=== PATIENT | male | born 1955 | race Caucasian/White ===

== ENCOUNTER 2018-03-29 15:31 | Emergency (ER) | payer OTHER ==
--- OUTSIDE RECORDS SUMMARY | 2018-03-29 15:33 | XMS REPORT ---
:1955 Author Organization eClinicalWorks Care Team Providers Name Role Phone Brown, Na Provider Role Unavailable Allergies, Adverse Reactions, Alerts Substance Reaction Event Type Claritin Info Not Available Drug Allergy Problems Problem Type Condition Code Onset Dates Condition Status Problem Migraine with status migrainosus, G43.901 Active not intractable, unspecified migraine type Problem Iron deficiency anemia, unspecified D50.9 Active iron deficiency anemia type Problem Controlled type 2 diabetes mellitus E11.9 Active without complication, without long-term current use of insulin Problem Diabetes E11.9 Active Problem Benign essential HTN I10 Active Problem Hyperlipidemia E78.5 Active Problem Pain R52 Active Problem Lumbosacral spondylosis without M47.817 Active myelopathy Problem Erectile dysfunction N52.9 Active Problem Chronic hepatitis C B18.2 Active Assessment Erectile dysfunction N52.9 Active Assessment Hyperlipidemia E78.5 Active Assessment Iron deficiency anemia, unspecified D50.9 Active iron deficiency anemia type Assessment Benign essential HTN I10 Active Assessment Lumbosacral spondylosis without M47.817 Active myelopathy Assessment Controlled type 2 diabetes mellitus E11.9 Active without complication, without long-term current use of insulin Medications Medication Code Code Instructions Start End Status Dosage System Date Date Zyrtec Allergy ND 31892825267 10 MG Orally Active 1 tablet Once a day Tradjenta ND 30997476379 5 MG Orally Active 1 tablet Once a day Tylenol # 3 NDC 0 30-500-15 MG Inactive 2 tablets Orally every 6 as needed hrs blood glucose NDC 0 n/s once a day December Active one test strip 2017 Cialis ND 05040572240 20 MG Orally Sep 28, Active 1 tablet once a day prn 2019 erectile dysfunction Gabapentin ND 92810254656 600MG Active TAKE TWO TABLETS BY MOUTH THREE TIMES DAILY Lancets Super NDC 0 n/s finger December Active one Thin stick once 2017 Hyzaar ND 80846342311 50-12.5 MG Active 1 tablet Orally Once a day Ferrous ND 04906981652 325 (65 Fe) MG Active 1 tablet Sulfate Orally Once a day [place] [facility] 98448054494 7.5-325 MG Active 1 tablet as Orally every 6 needed hrs Glucometer ND 0 n/s use as December Active not defined directed to 2017 08, check blood 2018 glucose twice a day Alcohol Prep ND 0 twice a day December Active as directed Pads 2017 Flonase [facility] 38193118280 50 MCG/ACT Active 1 spray in Nasally Once a each day nostril Singulair [facility] 71237853528 10 MG Orally Active 1 tablet in Once a day the evening Viagra [facility] 15190376197 100 MG Orally Inactive 1 tablet as Once a day needed Results No Known Results Summary Purpose eClinicalWorks Submission
--- OUTSIDE RECORDS SUMMARY | 2018-03-29 15:33 | XMS REPORT ---
:1955 Author Organization e[employer]Works Care Team Providers Name Role Phone Brown, Na Provider Role Unavailable Allergies No Known Allergies Problems Problem Type Condition Code Onset Dates [...] Active Problem Chronic hepatitis C B18.2 Active Medications No Known Medications Results No Known Results Summary Purpose eClinicalWorks Submission
[2018-03-29] MEDS ORDERED: HYDROCODONE/APAP 10/325 TAB ONE (16:21)
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
--- NOTE | 2018-03-29 16:34 | ER ---
Nurse's Notes [facility] Name: Christopher Farrar Age: 62 yrs Sex: Male : 1955 Arrival Date: 03/29/2018 Time: 15:34 Bed 24 Private MD: None, None Diagnosis: Low back pain;Other chronic pain Presentation: 03/29 15:39 Presenting complaint: Patient states: Back pain now for several years, has a PCP that sg has been managing his care but today the pain is not being controlled with usual medications, denies trauma, no urinary symptoms reported, pt c/o lower back pain a 10/10, difficulty standing and walking without severe pain, I took all of my hydrocodone that prescribes for pain management, has an MRI scheduled with PCP in [place], I need some help with the back pain, because im out of my pain medication. Transition of care: patient was not received from another setting of care. Onset of symptoms was March 29, 2018. Risk Assessment: Do you want to hurt yourself or someone else? Patient reports no desire to harm self or others. Initial Sepsis Screen: Does the patient meet any 2 criteria? No. Patient's initial sepsis screen is negative. Does the patient have a suspected source of infection? No. Patient's initial sepsis screen is negative. Care prior to arrival: None. 15:39 Method Of Arrival: Wheelchair 15:39 Acuity: GENE 4 sg Historical: - Allergies: 15:39 No Known Allergies; sg - PSHx: 15:39 Tonsillectomy; sg - Immunization history:: Adult Immunizations not up to date. - Social history:: Smoking status: Patient/guardian denies using tobacco. - Ebola Screening: : Patient negative for fever greater than or equal to 101.5 degrees Fahrenheit, and additional compatible Ebola Virus Disease symptoms Patient denies exposure to infectious person Patient denies travel to an Ebola-affected area in the 21 days before illness onset No symptoms or risks identified at this time. Screenin:52 Abuse screen: Denies threats or abuse. Nutritional screening: No deficits noted. mb3 Tuberculosis screening: No symptoms or risk factors identified. Fall Risk None identified. Assessment: 16:51 General: Appears in no apparent distress. comfortable, Behavior is calm, cooperative, mb3 appropriate for age. Pain: Complains of pain in back. Neuro: Level of Consciousness is awake, alert, obeys commands. Cardiovascular: No deficits noted. Respiratory: No deficits noted. GI: No deficits noted. : No deficits noted. Vital Signs: 15:42 Pulse 108; Resp 17; Temp 98.6; Pulse Ox 100% on R/A; Pain 10/10; sg 15:43 BP 164 / 104; sg 15:43 Weight 77.11 kg (R); Height 5 ft. 9 in. (175.26 cm); sg 16:50 BP 150 / 110; Pulse 98; Resp 16; Pulse Ox 99% on R/A; mb3 15:43 Body Mass Index 25.10 (77.11 kg, 175.26 cm) sg ED Course: 15:34 Patient arrived in ED. sb2 15:34 None, None is Private Physician. sb2 15:39 Arm band placed on. sg 15:40 Triage completed. sg 15:54 Darny Delgado NP is PHCP. pm1 15:54 Les Lin MD is Attending Physician. pm1 15:59 Hai Barbosa, IGOR is Primary Nurse. mb3 16:34 Darrell Avitia DO is Referral Physician. pm1 16:51 No provider procedures requiring assistance completed. Patient did not have IV access mb3 during this emergency room visit. 16:52 Patient has correct armband on for positive identification. mb3 Administered Medications: 16:24 Drug: HYDROcodone-acetaminophen 10 mg-325 mg 1 tabs Route: PO; mb3 16:53 Follow up: Response: No adverse reaction mb3 Outcome: 16:33 Discharge ordered by . pm1 16:52 Discharged to home ambulatory. mb3 16:52 Condition: stable 16:52 Discharge instructions given to patient, Instructed on discharge instructions, follow up and referral plans. Demonstrated understanding of instructions, follow-up care. 16:53 Patient left the ED. mb3 Signatures: Pal Spivey RN RN Daryn Delgado NP WEBSITE DEVELOPER pm1 Rowan Amin sb2 Hai Barbosa, IGOR RN mb3 Corrections: (The following items were deleted from the chart) 15:43 15:39 Presenting complaint: Patient states: Back pain now for several years, has a PCP sg that has been managing his care but today the pain is not being controlled with usual medications, denies trauma, no urinary symptoms reported, pt c/o lower back pain a 07/04, difficulty standing and walking without severe pain sg
[2018-03-29 16:58] VITALS: TEMP 98.6
[2018-03-29 17:00] VITALS: BP 150/110; O2SAT 99
== END 2018-03-29 16:53 | disposition home or self-care (01) ==
LOC: ER 15:31
DX: G89.29 Other chronic pain (principal); F45.42 Pain disorder with related psychological factors; M54.5 Low back pain
CPT/HCPCS: 99283

== ENCOUNTER 2018-12-09 06:06 | Inpatient (IN) | payer OTHER ==
--- OUTSIDE RECORDS SUMMARY | 2018-12-09 06:08 | XMS REPORT ---
:1955 Author Organization eClinicalWorks Care Team Providers Name Role Phone Brown, Na Provider Role Unavailable Allergies, Adverse Reactions, Alerts Substance Reaction Event Type Claritin Info Not Available Drug Allergy Problems Problem Type Condition Code Onset Dates Condition Status Problem Diabetes E11.9 Active Problem Migraine with status migrainosus, G43.901 Active not intractable, unspecified migraine type Problem Hyperlipidemia E78.5 Active Problem Erectile dysfunction N52.9 Active Problem Chronic hepatitis C B18.2 Active Problem Elevated liver enzymes R74.8 Active Problem Iron deficiency anemia, unspecified D50.9 Active iron deficiency anemia type Problem Controlled type 2 diabetes mellitus E11.9 Active without complication, without long-term current use of insulin Problem Pain R52 Active Problem Lumbosacral spondylosis without M47.817 Active myelopathy Assessment Chronic hepatitis C B18.2 Active Assessment Iron deficiency anemia, unspecified D50.9 Active iron deficiency anemia type Assessment Erectile dysfunction N52.9 Active Assessment Elevated liver enzymes R74.8 Active Assessment Benign essential HTN I10 Active Assessment Controlled type 2 diabetes mellitus E11.9 Active without complication, without long-term current use of insulin Assessment Lumbosacral spondylosis without M47.817 Active myelopathy Assessment Hyperlipidemia E78.5 Active Problem Benign essential HTN I10 Active Medications Medication Code Code Instructions Start End Status Dosage System Date Date Singulair [facility] 66039296335 10 MG Orally Active 1 tablet in Once a day the evening Flonase [facility] 76147123937 50 MCG/ACT Active 1 spray in Nasally Once a each day nostril Alcohol Prep NDC 0 twice a day December Active as directed Pads 2017 [place] [facility] 73692774358 7.5-325 MG Active 1 tablet as Orally every 6 needed hrs Gabapentin [facility] 55511582852 600MG Active TAKE TWO TABLETS BY MOUTH THREE TIMES DAILY Cialis [facility] 82873441942 20 MG Orally Jun 18, Active 1 tablet once a day prn 2018 erectile dysfunction Hyzaar [facility] 38843710323 50-12.5 MG Active 1 tablet Orally Once a day Lancets Super NDC 0 n/s finger stick December Active one Thin once 2017 Tradjenta [facility] 03605601409 5 MG Orally Once Active 1 tablet a day blood glucose NDC 0 n/s once a day December Active one test strip 2017 Zyrtec Allergy [facility] 32164552108 10 MG Orally Active 1 tablet Once a day Ferrous [facility] 42767690292 325 (65 Fe) MG Active 1 tablet Sulfate Orally Once a day Results No Known Results Summary Purpose eClinicalWorks Submission
--- OUTSIDE RECORDS SUMMARY | 2018-12-09 06:08 | XMS REPORT ---
[...] Dosage System Date Date Zyrtec Allergy ND 76533205448 10 MG Orally Active 1 tablet Once a day Tradjenta ND 73624455303 5 MG Orally Active 1 tablet Once a day Tylenol # 3 NDC 0 30-500-15 MG Inactive 2 tablets Orally every 6 as needed hrs blood glucose NDC 0 n/s once a day December Active one test strip 2017 Cialis ND 69707670654 20 MG Orally Sep 28, Active 1 tablet once a day prn 2019 erectile dysfunction Gabapentin ND 19280385933 600MG Active TAKE TWO TABLETS BY MOUTH THREE TIMES DAILY Lancets Super NDC 0 n/s finger December Active one Thin stick once 2017 Hyzaar ND 92486980791 50-12.5 MG Active 1 tablet Orally Once a day Ferrous ND 01637998290 325 (65 Fe) MG Active 1 tablet Sulfate Orally Once a day [place] [facility] 58643677246 7.5-325 MG Active 1 tablet as Orally every 6 needed hrs Glucometer ND 0 n/s use as December Active not defined directed to 2017 08, check blood 2018 glucose twice a day Alcohol Prep ND 0 twice a day December Active as directed Pads 2017 Flonase [facility] 34022671901 50 MCG/ACT Active 1 spray in Nasally Once a each day nostril Singulair [facility] 06201922346 10 MG Orally Active 1 tablet in Once a day the evening Viagra [facility] 71456384844 100 MG Orally Inactive 1 tablet as Once a day needed Results No Known Results Summary Purpose eClinicalWorks Submission
[2018-12-09] MEDS ORDERED: NA CHLORIDE 0.9% 1,000 ML ONE ×2 (07:36→21:04)
[2018-12-09 07:38] LABS: Absolute Lymphocytes (CBC) 0.9 K/uL (0.7-4.9); Absolute Monocytes 0.2 K/uL (0.1-1.3); Absolute Neutrophil 2.1 K/uL (1.8-8.0); Basophils % 0.6 % (0-1.3); Eosinophils % 0.9 % (0-4.4); Hematocrit 34.1 % (39.6-49.0); Lymphocytes % 27.6 % (15.3-44.8); MPV 9.4 fL (7.6-11.3); Monocytes % 6.6 % (3.3-12.3); RBC Red Blood Cell Count 3.43 M/uL (4.33-5.43)
[2018-12-09 07:39] LABS: Protime INR 1.42
[2018-12-09 07:52] LABS: Albumin 2.6 g/dL (3.4-5.0); Bilirubin Direct 0.8 mg/dL (0-0.2); Bilirubin Total 1.7 mg/dL (0.2-1.0); Troponin (Emerg Dept Use Only) 0.06 ng/mL (0.0-0.045)
[2018-12-09 07:55] LABS: Magnesium 1.3 mg/dL (1.8-2.4)
[2018-12-09] MEDS ORDERED: Magnesium Sulfate 2gm IVPB 2 G/50 ML BAG IV ONE (08:14)
--- NOTE | 2018-12-09 08:47 | EDPHYS ---
Physician Documentation [facility] Name: Christopher Farrar Age: 63 yrs Sex: Male : 1955 Arrival Date: 12/09/2018 Time: 06:06 Bed 15 Private MD: ED Physician Aleksandar Thomas HPI: 12/09 06:18 This 63 yrs old Male presents to ER via Ambulatory with complaints of Altered jmm Mental Status. 06:18 The patient presents with confusion. Onset: The symptoms/episode began/occurred jmm gradually, 2 day(s) ago. Possible causes: unknown. Associated signs and symptoms: Pertinent negatives: chest pain. This is a 63 year old male with a history of hepatitis, htn, dm, that presents to the ED with complaints from of confusion beginning this past Monday. states the patient slept all day yesterday. Patient has taken medication for chronic back pain as directed. Denies known motor deficit, denies slurred speech. . Historical: - Allergies: 06:19 No Known Allergies; jb4 - Home Meds: 06:19 tramadol 50 mg Oral tab [Active]; gabapentin 600 mg oral tab [Active]; Tradjenta 5 mg jb4 oral tab [Active]; hydrocodone-acetaminophen 7.5-325 mg oral tab [Active]; - PMHx: 06:19 Hypertension; Diabetes - NIDDM; Hepatitis; jb4 - PSHx: 06:19 back; neck; left ankle; jb4 - Immunization history:: Adult Immunizations up to date. - Social history:: Smoking status: Patient uses tobacco products, unknown amount Patient/guardian denies using alcohol. - Ebola Screening: : No symptoms or risks identified at this time. ROS: 06:20 Constitutional: Negative for fever, chills, and weight loss, Cardiovascular: Negative jmm for chest pain, palpitations, and edema, Respiratory: Negative for shortness of breath, cough, wheezing, and pleuritic chest pain, Abdomen/GI: Negative for abdominal pain, nausea, vomiting, diarrhea, and constipation. 06:20 Neuro: Positive for altered mental status. 06:20 All other systems are negative. Exam: 06:20 Constitutional: This is a well developed, well nourished patient who is awake, alert, jmm and in no acute distress. Head/Face: atraumatic. Eyes: EOMI, no conjunctival erythema appreciated ENT: Moist Mucus Membranes Neck: Trachea midline, Supple Chest/axilla: Normal chest wall appearance and motion. 06:20 Cardiovascular: Rate: normal, Rhythm: regular. 06:20 Respiratory: the patient does not display signs of respiratory distress, Respirations: normal, Breath sounds: are clear throughout. 06:20 Abdomen/GI: Inspection: abdomen appears normal, Bowel sounds: normal, Palpation: abdomen is soft and non-tender, in all quadrants. 06:20 Musculoskeletal/extremity: ROM: intact in all extremities. 06:20 Skin: Appearance: Color: normal in color. 06:20 Neuro: Orientation: to person, place, Not oriented to time. 06:20 Neuro: Mentation: slow to respond, Motor: is normal. 06:20 Psych: Behavior/mood is pleasant, cooperative. Vital Signs: 06:19 BP 195 / 104; Pulse 100; Resp 16; Temp 98.5; Pulse Ox 100% on R/A; Weight 79.38 kg (R); jb4 Height 6 ft. 0 in. (182.88 cm) (R); Pain 0/10; 07:42 BP 169 / 85; Pulse 82; Resp 20; Pulse Ox 100% on R/A; tw2 08:37 BP 183 / 87; Pulse 85; Resp 17; Pulse Ox 100% on R/A; tw2 06:19 Body Mass Index 23.73 (79.38 kg, 182.88 cm) jb4 MDM: 06:18 Patient medically screened. [facility] 08:43 Data reviewed: vital signs, nurses notes. Counseling: I had a detailed discussion with [facility] the patient and/or guardian regarding: the historical points, exam findings, and any diagnostic results supporting the discharge/admit diagnosis, lab results, radiology results, the need for further work-up and treatment in the hospital. ED course: I discussed the patient with Dr. Rust whom accepted admission. 12/09 06:19 Order name: Basic Metabolic Panel [facility] 12/09 06:19 Order name: CBC with Diff [facility] 12/09 06:19 Order name: LFT's; Complete Time: 08:23 [facility] 12/09 08:05 Interpretation: Abnormal. rn 12/09 06:19 Order name: Magnesium; Complete Time: 08:23 [facility] 12/10 00:39 Interpretation: Abnormal. 12/09 06:19 Order name: NT PRO-BNP; Complete Time: 08:23 [facility] 12/09 06:19 Order name: PT-INR; Complete Time: 07:47 [facility] 12/09 06:19 Order name: Troponin (emerg Dept Use Only); Complete Time: 08:23 [facility] 12/09 06:19 Order name: Urine Drug Screen; Complete Time: 11:21 [facility] 12/09 06:19 Order name: Basic Metabolic Panel; Complete Time: 08:23 [facility] 12/09 06:19 Order name: CBC with Automated Diff; Complete Time: 07:49 [facility] 12/09 06:26 Order name: ETOH Level; Complete Time: 07:49 [facility] 12/09 06:28 Order name: Procalcitonin; Complete Time: 08:04 [facility] 12/09 06:28 Order name: Lactate; Complete Time: 07:49 [facility] 12/09 06:28 Order name: Flu; Complete Time: 08:14 [facility] 12/09 06:19 Order name: XRAY Chest (1 view); Complete Time: 09:10 [facility] 12/09 06:19 Order name: CT Head Brain wo Cont [facility] 12/09 06:43 Order name: Ammonia; Complete Time: 07:39 [facility] 12/09 08:42 Order name: US Abdomen Limited [facility] 12/09 08:46 Order name: Glucose, Ancillary Testing; Complete Time: 08:46 ED[facility] 12/09 09:53 Order name: US; Complete Time: 09:54 ED[facility] 12/09 10:00 Order name: Urine Dipstick--Ancillary (enter results) 12/09 10:12 Order name: Thyroid Stimulating Hormone; Complete Time: 11:21 ED[facility] 12/09 11:10 Order name: Lactate Sepsis 2 HR Follow-up; Complete Time: 11:21 ED[facility] 12/09 11:34 Order name: Glucose, Ancillary Testing; Complete Time: 11:42 ED[facility] 12/09 13:21 Order name: Troponin I; Complete Time: 14:03 [facility] 12/09 16:21 Order name: Urine Dipstick-Ancillary; Complete Time: 17:58 [facility] 12/09 21:49 Order name: Troponin I; Complete Time: 23:42 [facility] 12/10 00:43 Order name: Lipase gs 12/10 01:40 Order name: Lipase; Complete Time: 06:04 [facility] 12/09 06:19 Order name: EKG; Complete Time: 06:20 [facility] 12/09 06:19 Order name: Cardiac monitoring; Complete Time: 06:34 [facility] 12/09 06:19 Order name: EKG - Nurse/Tech; Complete Time: 06:34 [facility] 12/09 06:19 Order name: IV Saline Lock; Complete Time: 07:22 [facility] 12/09 06:19 Order name: Labs collected and sent; Complete Time: 07:22 [facility] 12/09 06:19 Order name: O2 Per Protocol; Complete Time: 06:34 [facility] 12/09 06:19 Order name: O2 Sat Monitoring; Complete Time: 06:34 [facility] 12/09 06:19 Order name: Urine Dipstick-Ancillary (obtain specimen); Complete Time: 10:14 jmm Administered Medications: 07:28 Drug: NS 0.9% 1000 ml Route: IV; Rate: 1 bolus; Site: left upper arm; 09:24 Follow up: Response: No adverse reaction; IV Status: Completed infusion; IV Intake: tw2 1000ml 08:13 Drug: Magnesium Sulfate 2 grams Route: IVPB; Infused Over: 2 hrs; Site: left upper arm; tw2 09:29 Follow up: Response: No adverse reaction; IV Status: Infusion continued upon admission tw2 14:08 CANCELLED (see [employer]): Lovenox 1 mg/kg Sub-Q once tw2 14:08 CANCELLED (provider ordered incorrectly): Aspirin Chewable Tablet 324 mg PO once; 81 mg tw2 tablets x 4 Point of Care Testing: Blood Glucose: 07:00 Blood Glucose: 204 mg/dL; jb4 Ranges: Critical Glucose Levels:Adult <50 mg/dl or >400 mg/dl <40 mg/dl or >180 mg/dl Disposition: 12/09/18 08:45 Hospitalization ordered by Santhosh Rust for Observation. Preliminary diagnosis are Altered mental status, unspecified, Hypomagnesemia, Hepatic Encephalopathy, Elevated Troponin. - Bed requested for [facility] ER HOLD. - Status is Observation. cc3 - Condition is Stable. - Problem is new. - Symptoms are unchanged. UTI on Admission? No Addendum: 12/17/2018 21:06 Co-signature as Attending Physician, Aleksandar Thomas MD Available for consultation at p s1 all times . Signatures: Dispatcher [employer] EDMS Werner Johnson PA PA jmm Chretien, Felicia RN RN Les Lin MD MD rn Roszak, Josh, PA PA jr8 Nicolasa Campoverde RN RN tw2 Kingston Raygoza RN RN jb4 Juan Peters MD MD Aleksandar Thomas MD MD ps1 Botello, Elizabeth eb Cordel, Charlene cc3 Corrections: (The following items were deleted from the chart) 12/09 08:50 08:45 Hospitalization Ordered by Santhosh Rust MD for Observation. Preliminary diagnosis eb is Altered mental status, unspecified; Hypomagnesemia; Hepatic Encephalopathy; Elevated Troponin. Bed requested for Telemetry/MedSurg (observation). Status is Observation. Condition is Stable. Problem is new. Symptoms are unchanged. UTI on Admission? No. [facility] 14:08 14:06 Lovenox 1 mg/kg Sub-Q once ordered. [place] [id number] 14:08 14:06 Aspirin Chewable Tablet 324 mg PO once; 81 mg tablets x [address] [place] [id number] 12/10 01:56 12/09 08:50 12/09/2018 08:45 Hospitalization Ordered by Santhosh Rust MD for cc3 Observation. Preliminary diagnosis is Altered mental status, unspecified; Hypomagnesemia; Hepatic Encephalopathy; Elevated Troponin. Bed requested for [facility] ER HOLD. Status is Observation. Condition is Stable. Problem is new. Symptoms are unchanged. UTI on Admission? No. eb
--- NOTE | 2018-12-09 08:47 | ER ---
Nurse's Notes [facility] Name: Christopher Farrar Age: 63 yrs Sex: Male : 1955 Arrival Date: 12/09/2018 Time: 06:06 Bed 15 Private MD: Diagnosis: Altered mental status, unspecified;Hypomagnesemia;Hepatic Encephalopathy;Elevated Troponin Presentation: 12/09 06:19 Presenting complaint: states: he was last seen normal on Monday morning. Since jb4 then he has been very forgetful. 06:19 Transition of care: patient was not received from another setting of care. Onset of jb4 symptoms was December 07, 2018. Risk Assessment: Do you want to hurt yourself or someone else? Patient reports no desire to harm self or others. Initial Sepsis Screen: Does the patient meet any 2 criteria? HR > 90 bpm. Yes Does the patient have a suspected source of infection? No. Patient's initial sepsis screen is negative. Care prior to arrival: None. 06:19 Method Of Arrival: Ambulatory jb4 06:19 Acuity: GENE 3 jb4 Triage Assessment: 06:19 General: Appears in no apparent distress. comfortable, Behavior is calm, cooperative, jb4 appropriate for age. Pain: Denies pain. EENT: No signs and/or symptoms were reported regarding the EENT system. Neuro: Level of Consciousness is awake, alert, obeys commands, Oriented to person, Gait is steady, Speech is normal, Facial symmetry appears normal. Cardiovascular: Patient's skin is warm and dry. Respiratory: Airway is patent Respiratory effort is even, unlabored, Respiratory pattern is regular, symmetrical, Breath sounds are clear in left upper lobe, left lower lobe, left posterior upper lobe and left posterior lower lobe Breath sounds with rhonchi in right upper lobe, right middle lobe, right lower lobe, right posterior upper lobe, right posterior middle lobe and right posterior lower lobe. GI: No signs and/or symptoms were reported involving the gastrointestinal system. : No signs and/or symptoms were reported regarding the genitourinary system. Derm: Skin is intact, Skin is dry, Skin is pale, Skin temperature is warm. Musculoskeletal: Circulation, motion, and sensation intact. Historical: - Allergies: :19 No Known Allergies; jb4 - Home Meds: :19 tramadol 50 mg Oral tab [Active]; gabapentin 600 mg oral tab [Active]; Tradjenta 5 mg jb4 oral tab [Active]; hydrocodone-acetaminophen 7.5-325 mg oral tab [Active]; - PMHx: 06:19 Hypertension; Diabetes - NIDDM; Hepatitis; jb4 - PSHx: 06:19 back; neck; left ankle; jb4 - Immunization history:: Adult Immunizations up to date. - Social history:: Smoking status: Patient uses tobacco products, unknown amount Patient/guardian denies using alcohol. - Ebola Screening: : No symptoms or risks identified at this time. Screenin:19 Abuse screen: Denies threats or abuse. Nutritional screening: No deficits noted. jb4 Tuberculosis screening: No symptoms or risk factors identified. Fall Risk IV access (20 points). Mental Status- Overestimates/Forgets Limitations (15 pts.). Total Vora Fall Scale indicates Low Risk Score (25-44 pts). Fall prevention measures have been instituted. Side Rails Up X 2 Placed close to Nursing Station Frequent Obs/Assesments occuring Family Present and informed to notify staff if they need to leave bedside. Assessment: 06:19 General: see triage assessment.. jb4 07:42 Reassessment: Patient appears in no apparent distress at this time. No changes from tw2 previously documented assessment. Patient and/or family updated on plan of care and expected duration. Pain level reassessed. 08:13 Reassessment: pt ambulates to restroom at this time with instructions to collect tw2 sample, pt urinated in toilet and not in cup, no sample collected at this time. provider notified. 08:37 Reassessment: Patient appears in no apparent distress at this time. No changes from tw2 previously documented assessment. Patient and/or family updated on plan of care and expected duration. Pain level reassessed. 12/10 01:50 Reassessment: Patient left ER for transfer to [facility] vitally stable by [address] [facility] stretcher. Vital Signs: 12/09 06:19 BP 195 / 104; Pulse 100; Resp 16; Temp 98.5; Pulse Ox 100% on R/A; Weight 79.38 kg (R); jb4 Height 6 ft. 0 in. (182.88 cm) (R); Pain 0/10; 07:42 BP 169 / 85; Pulse 82; Resp 20; Pulse Ox 100% on R/A; tw2 08:37 BP 183 / 87; Pulse 85; Resp 17; Pulse Ox 100% on R/A; tw2 06:19 Body Mass Index 23.73 (79.38 kg, 182.88 cm) jb4 ED Course: 06:06 Patient arrived in ED. ds1 06:13 Werner Johnson PA is PHCP. jmm 06:13 Aleksandar Thomas MD is Attending Physician. jmm 06:19 Arm band placed on left wrist. jb4 06:19 Patient has correct armband on for positive identification. Placed in gown. Bed in low jb4 position. Call light in reach. Side rails up X2. school bus monitor on. Pulse ox on. NIBP on. 06:22 Kingston Raygoza, RN is Primary Nurse. jb4 06:24 Triage completed. jb4 06:48 XRAY Chest (1 view) In Process Unspecified. EDMS 06:52 CT Head Brain wo Cont In Process Unspecified. EDMS 07:10 Initial lab(s) drawn, by wa, sent to lab. Inserted 18 gauge 10 cm midline to left upper fc basilic vein on second attempt. Line with good blood return and flushes well. 07:22 Primary Nurse role handed off by Kingston Raygoza, IGOR tw2 07:22 Nicolasa Campoverde, IGOR is Primary Nurse. tw2 08:44 Santhosh Rust MD is Hospitalizing Provider. [facility] 09:28 No provider procedures requiring assistance completed. Patient admitted, IV remains in tw2 place. 09:35 Ultrasound completed. Patient tolerated well. sg3 22:26 Primary Nurse role handed off by Nicolasa Campoverde, IGOR ed1 Administered Medications: 07:28 Drug: NS 0.9% 1000 ml Route: IV; Rate: 1 bolus; Site: left upper arm; 09:24 Follow up: Response: No adverse reaction; IV Status: Completed infusion; IV Intake: tw2 1000ml 08:13 Drug: Magnesium Sulfate 2 grams Route: IVPB; Infused Over: 2 hrs; Site: left upper arm; tw2 09:29 Follow up: Response: No adverse reaction; IV Status: Infusion continued upon admission tw2 14:08 CANCELLED (see [employer]): Lovenox 1 mg/kg Sub-Q once tw2 14:08 CANCELLED (provider ordered incorrectly): Aspirin Chewable Tablet 324 mg PO once; 81 mg tw2 tablets x 4 Point of Care Testing: Blood Glucose: 07:00 Blood Glucose: 204 mg/dL; jb4 Ranges: Intake: 09:24 IV: 1000ml; Total: 1000ml. tw2 Outcome: 08:45 Decision to Hospitalize by Provider. [facility] 09:28 Admitted to ER Hold. Please see [facility] for further documentation. tw2 09:28 Condition: stable 09:28 Instructed on the need for admit. 12/10 01:56 Patient left the ED. cc3 Signatures: Dispatcher [employer] EDMS Werner Johnson PA PA jmm Chretien, Felicia, RN RN Lisa Parkinson ds1 Sierra Parikh RN RN ed1 Nicolasa Campoverde RN RN tw2 Kingston Raygoza RN RN jb4 Jimena Suazo 3 Jessica Parkinson cc3 Corrections: (The following items were deleted from the chart) 12/09 07:21 06:19 Derm: Skin is intact, Skin is pink, warm \T\ dry. jb4 jb4
--- NOTE | 2018-12-09 09:07 | RAD REPORT ---
EXAM DESCRIPTION: Vanesa Single View12/09/2018 6:48 am CLINICAL HISTORY: Chest pain COMPARISON: 2014 FINDINGS: The lungs appear clear of acute infiltrate. The heart is normal size IMPRESSION: No acute abnormalities displayed
[2018-12-09] MEDS ORDERED: ALBUTEROL 2.5 MG/3 ML NEB SOL NEB PRN (09:27)
[2018-12-09] MEDS ORDERED: GLUCAGON 1 MG/VIAL IM PRN (09:47)
[2018-12-09] MEDS ORDERED: D50W 25 GM/50 ML SYRINGE IV PRN (09:47)
--- NOTE | 2018-12-09 09:53 | RAD REPORT ---
EXAM DESCRIPTION: US - Abdomen Exam Limited - 12/09/2018 9:35 am CLINICAL HISTORY: Abdominal pain. COMPARISON: None. FINDINGS: 13 millimeter stone is present within the gallbladder neck. Gallbladder wall is thickened measuring 5 millimeters Common bile duct measures 7 millimeters IMPRESSION: Cholelithiasis. Thickened gallbladder wall may indicate cholecystitis or be related to h ypoalbuminemia Mild dilatation of the common bile duct
[2018-12-09] MEDS: NA CHLORIDE 0.9% 1,000 ML IV SCH ×2 (10:00→20:30)
[2018-12-09] MEDS ORDERED: ENOXAPARIN 40 MG/0.4 ML SQ SCH (10:00)
[2018-12-09 10:15] LABS: Barbiturates NEGATIVE (NEGATIVE); Benzodiazepines NEGATIVE (NEGATIVE); Cocaine NEGATIVE (NEGATIVE); METHAMPHETAM NEGATIVE (NEGATIVE); Methadone NEGATIVE (NEGATIVE); Opiates POSITIVE (NEGATIVE); Phencyclidine NEGATIVE (NEGATIVE); THC Cannibis NEGATIVE (NEGATIVE)
[2018-12-09 10:36] VITALS: O2SAT 100
[2018-12-09 11:04] VITALS: BMI 3417.4
[2018-12-09] MEDS: INSULIN -REGULAR HUMAN 50 UNIT/0.5 ML ML SQ SCH ×3 (11:30→21:08)
[2018-12-09] MEDS ORDERED: INSULIN -REGULAR HUMAN 50 UNIT/0.5 ML ML ONE (11:38)
[2018-12-09] MEDS ORDERED: ENOXAPARIN 40 MG/0.4 ML SQ ONE ×3 (11:39→14:51)
--- NOTE | 2018-12-09 12:25 | EKG ---
Test Date: 2018-12-09 Test Time: 06:31:24 Enrollment Management Vice President: DU MEASUREMENT RESULTS: Intervals: Rate: 94 [place]: 168 QRSD: 92 QT: 420 QTc: 525 [place]: P: -6 [place]: 168 QRS: -43 T: 18 INTERPRETIVE STATEMENTS: Sinus rhythm with occasional premature ventricular complexes Left axis deviation Nonspecific ST and T wave abnormality Prolonged QT Abnormal ECG Compared to ECG 12/09/2018 06:30:49 Ventricular premature complex(es) now present Prolonged QT interval now present ST (T wave) deviation still present Electronically Signed On 12-09-18 12:24:05 CDT by Preston Durbin
[2018-12-09] MEDS: TRAMADOL HCL 50 MG TAB PO PRN ×2 (13:53→22:08)
[2018-12-09] MEDS ORDERED: ASPIRIN 81 MG CHEWABLE TABLET PO ONE (14:09)
[2018-12-09] MEDS ORDERED: INFLUENZA VACCINE (for 3y+) 0.5 ML DOSE IMVAC ONE (15:00)
--- NOTE | 2018-12-09 15:13 | P.HP ---
Certification for Inpatient Patient admitted to: Inpatient With expected LOS: >2 Midnights Practitioner: I am a practitioner with admitting privileges, knowledge of patient current condition, hospital course, and medical plan of care. Services: Services provided to patient in accordance with Admission requirements found in Title 42 Section 412.3 of the Code of Federal Regulations Patient History Date of Service: 12/09/18 Primary Care Provider: Dr. Brown; Reason for admission: Altered mental status History of Present Illness: This is a 63-year-old male with a history of hypertension, diabetes mellitus type 2, current smoker, hepatitis-C admitted for altered mental status. Per at bedside, for the past 2 days he patient has started to forget words started to get more sleepy and has been progressively worsening. He seems to forget things more Commons more confused and does not remember much. states that she lives in [facility], she just came back . At that time she noted that patient was clinically normal and at baseline. Monday starting morning, she stated that patient was progressively starting get more confused. She denies any weakness, falls, drooping of the face, slurring of the speech, vision blurring, any chest pain or shortness of breath. During the whole interview, patient states that he will try to remember and he tries remember but is unable to tell me any details as to what's going on. In the ER, patient initially was alert oriented x2, with elevated blood pressure. His labs were remarkable for WBC count 3.3, potassium of 3.0, magnesium 1.3, lactic acid 4.0, AST elevated at 95, alk-phos of 152, and ammonia level of 65. His procalcitonin was negative. The initial troponin level was 0.6. Elevated abdominal ultrasound was ordered from the ER, positive for gallstone without any sludging. Mildly dilated biliary tree. The liver was not evaluated. At the time of my exam, he was not in any acute distress, but was only oriented to self. His blood pressure was elevated to 183/87. He was trying to get out of his bed and stated was going home, seemed to be confused. Allergies No Known Drug Allergies Allergy (Unverified 05/22/15 16:43) Unknown No Known Allergies Allergy (Uncoded 03/29/18 16:57) Unknown Home Medications: Acetaminophen with Codeine [Acetaminophen-Cod #4 Tablet] 1 each PO Q6HP PRN 09/08 Gabapentin 300 mg PO TID 05/06/15 Lisinopril [Prinivil*] 20 mg PO DAILY 05/06/15 Linagliptin [Tradjenta] 5 PO 12/09/18 - Past Medical/Surgical History Diabetic: Yes -: HEPATITIS -: HTN -: DM -: TONSILLECTOMY- 10 DAYS AGO 04/26/15 -: BACK/NECK SX UNKNOWN OF YEAR - Family History Father -: Lung disease Notes: unknown Mother Notes: unknown - Social History Smoking Status: Light Tobacco smoker (1-9 cigarettes/day) Alcohol use: No CD- Drugs: No Caffeine use: No Place of Residence: Home Review of Systems 10-point ROS is otherwise unremarkable Physical Examination - Vital Signs Blood Pressure: 175/96 Pulse: 89 Respirations: 15 Pulse Ox (%): 100 - Physical Exam General: Alert, In no apparent distress, Oriented x1, Confused HEENT: Atraumatic, PERRLA, Mucous membr. moist/pink, EOMI, Sclerae nonicteric Neck: Supple, 2+ carotid pulse no bruit, No LAD, Without JVD or thyroid abnormality Respiratory: Clear to auscultation bilaterally, Normal air movement Cardiovascular: Regular rate/rhythm, Normal S1 S2 Gastrointestinal: Normal bowel sounds, W/out hepatomegaly, W/out splenomegaly, No ascites, Distended, Tenderness (mild, generalized) Musculoskeletal: No tenderness Integumentary: No rashes Neurological: Normal gait, Normal speech, Normal strength at 5/5 x4 extr, Normal tone, Normal affect - Studies Laboratory Data (last 24 hrs) 12/09/18 07:10: PT 16.5 H, INR 1.42 12/09/18 07:10: WBC 3.3 L, Hgb 11.9 L, Hct 34.1 L, Plt Count 111 L 12/09/18 07:10: Sodium 139, Potassium 3.0 L, BUN 9, Creatinine 1.26, Glucose 183 H, Magnesium 1.3 L*, Total Bilirubin 1.7 H, AST 95 H, ALT 53, Alkaline Phosphatase 152 H Microbiology Data (last 24 hrs): 12/09/18 07:15 Nasopharnyx Influenza Type A Antigen Screen - Final 12/09/18 07:15 Nasopharnyx Influenza Type B Antigen Screen - Final Assessment and Plan - Problems (Diagnosis) (1) Encephalopathy Current Visit: Yes Status: Acute (2) Altered mental status Onset Date: 05/07/15 Current Visit: Yes Status: Acute (3) NSTEMI (non-ST elevated myocardial infarction) Current Visit: Yes Status: Acute (4) Hypokalemia Current Visit: Yes Status: Acute (5) Leukopenia Current Visit: Yes Status: Acute (6) Diabetes mellitus Current Visit: Yes Status: Acute (7) Hypertension Current Visit: Yes Status: Acute (8) Hepatitis C Current Visit: Yes Status: Acute - Plan Patient Problems: Encephalopathy (Acute) G93.40 Altered mental status (Acute 05/07/15) R41.82 Unspecific etiology. Multifactorial though: Could be from the liver, as patient does have a history of hepatitis-C. This could be secondary to infection, as patient is neutropenia with elevated lactic acid. CT scan was negative in the ER. Negative continues to not improve, will go ahead and get MRI. May need neurology consultation tomorrow. Unfortunately, neurology is not available today. NSTEMI (non-ST elevated myocardial infarction) (Acute) I21.4 Troponin elevation double with initial troponin 0.6 which jumped up to 1.3. Will go ahead and start Lovenox 1 mg per kg Aspirin and Beta-prince Cardiology consulted Hypokalemia (Acute) E87.6 Replete per protocol Leukopenia (Acute) D72.819 Will continue to monitor Diabetes mellitus (Acute) E11.9 Accu-Cheks and sliding scale insulin Will continue to monitor and adjust as needed Hypertension (Acute) I10 Elevated blood pressure in the ER. Will restart home medications. Continue to monitor and adjust as needed Hepatitis C (Acute) B19.20 Patient with a chronic history of hepatitis-C. He does not see a specialist. He has never had any treatment. He will need outpatient follow up for potential treatment of hepatitis-C. DVT prophylaxis: Lovenox, treatment dose GI prophylaxis: None Diet: Heart healthy Disposition: Pending symptomatic improvement, further testing/evaluation. We will admit to the floor for inpatient - Advance Directives Does patient have a Living Will: No Does patient have a Durable POA for Healthcare: No Time Spent Managing Pts Care (In Minutes): 55
[2018-12-09 16:21] LABS: Urine Blood 3+ (NEG); Urine Glucose NEGATIVE (NEG); Urine Protein 2+ (NEG); Urine pH 7.5 (5.0-7.0)
[2018-12-09] MEDS ORDERED: TRAMADOL HCL 50 MG TAB ONE (22:11)
[2018-12-09] MEDS ORDERED: Levofloxacin500mg IV 500 MG/100 ML BAG IV SCH (23:00)
[2018-12-10] MEDS ORDERED: METRONIDAZOLE 500mg IVPB 500 MG/100 ML BAG IV SCH
[2018-12-10] MEDS ORDERED: Levofloxacin500mg IV 500 MG/100 ML BAG IV SCH
[2018-12-10] MEDS ORDERED: METRONIDAZOLE 500mg IVPB 500 MG/100 ML BAG IV ONE (00:58)
[2018-12-10] MEDS ORDERED: Levofloxacin500mg IV 500 MG/100 ML BAG IV ONE (00:58)
[2018-12-10 01:33] VITALS: BP 161/85; TEMP 98.2
[2018-12-10] MEDS ORDERED: ENOXAPARIN 80 MG/0.8 ML SQ SCH (06:00)
--- NOTE | 2018-12-10 08:19 | P.DS ---
Discharge Date: 12/10/18 Primary Care Provider: Dr. Brown; Disposition: TRANSFER TO [facility] Discharge Condition: SERIOUS Reason for Admission: Altered mental status Brief History of Present Illness: This is a 63-year-old male with a history of hypertension, diabetes mellitus type 2, current smoker, hepatitis-C admitted for altered mental status. Per at bedside, for the past 2 days he patient has started to forget words started to get more sleepy and has been progressively worsening. He seems to forget things more Commons more confused and does not remember much. states that she lives in [facility], she just came back . At that time she noted that patient was clinically normal and at baseline. Monday starting morning, she stated that patient was progressively starting get more confused. She denies any weakness, falls, drooping of the face, slurring of the speech, vision blurring, any chest pain or shortness of breath. During the whole interview, patient states that he will try to remember and he tries remember but is unable to tell me any details as to what's going on. In the ER, patient initially was alert oriented x2, with elevated blood pressure. His labs were remarkable for WBC count 3.3, potassium of 3.0, magnesium 1.3, lactic acid 4.0, AST elevated at 95, alk-phos of 152, and ammonia level of 65. His procalcitonin was negative. The initial troponin level was 0.6. Elevated abdominal ultrasound was ordered from the ER, positive for gallstone without any sludging. Mildly dilated biliary tree. The liver was not evaluated. At the time of my exam, he was not in any acute distress, but was only oriented to self. His blood pressure was elevated to 183/87. He was trying to get out of his bed and stated was going home, seemed to be confused. Hospital Course: Patient was found have gallstone pancreatitis. It appeared that she had a common bile duct stone that was obstructing. It was felt she would be better suited to be at a facility were they could do ERCP. [facility]. Vital Signs/Physical Exam: Temp Pulse Resp BP Pulse Ox 98.2 F 75 16 161/85 H 100 12/10/18 01:00 12/10/18 01:00 12/10/18 01:00 12/10/18 01:00 12/10/18 01:00 General: Alert, In no apparent distress, Oriented x3 Laboratory Data at Discharge: WBC 3.3 K/uL (4.3-10.9) L 12/09/18 07:10 Hgb 11.9 g/dL (13.6-17.9) L 12/09/18 07:10 Hct 34.1 % (39.6-49.0) L 12/09/18 07:10 Plt Count 111 K/uL (152-406) L 12/09/18 07:10 PT 16.5 SECONDS (9.5-12.5) H 12/09/18 07:10 INR 1.42 12/09/18 07:10 Sodium 139 mmol/L (136-145) 12/09/18 07:10 Potassium 3.0 mmol/L (3.5-5.1) L 12/09/18 07:10 BUN 9 mg/dL (7-18) 12/09/18 07:10 Creatinine 1.26 mg/dL (0.55-1.3) 12/09/18 07:10 Glucose 183 mg/dL (74-106) H 12/09/18 07:10 Magnesium 1.3 mg/dL (1.8-2.4) L* 12/09/18 07:10 Total Bilirubin 1.7 mg/dL (0.2-1.0) H 12/09/18 07:10 AST 95 U/L (15-37) H 12/09/18 07:10 ALT 53 U/L (12-78) 12/09/18 07:10 Alkaline Phosphatase 152 U/L (45-117) H 12/09/18 07:10 Troponin I 0.24 ng/mL (0.0-0.045) H 12/09/18 21:12 Lipase 116 U/L (73-393) 12/10/18 00:52 Home Medications: Acetaminophen with Codeine [Acetaminophen-Cod #4 Tablet] 1 each PO Q6HP PRN 09/08 Gabapentin 300 mg PO TID 05/06/15 Lisinopril [Prinivil*] 20 mg PO DAILY 05/06/15 Linagliptin [Tradjenta] 5 PO 12/09/18 [facility] Activity: Fall precautions Time spent managing pt's care (in minutes): 15
--- NOTE | 2018-12-10 11:21 | RAD REPORT ---
EXAM DESCRIPTION: CT - Head Brain Wo Cont - 12/09/2018 7:03 am CLINICAL HISTORY: The patient is 63 years old and is Male; ams TECHNIQUE: Axial computed tomography images of the head/brain without intravenous contrast. Sagitt al and coronal reformatted images were created and reviewed. This CT exam was performed using one o r more of the following dose reduction techniques: automated exposure control, adjustment of the mA and/or kV according to patient size, and/or use of iterative reconstruction technique. COMPARISON: No relevant prior studies available. FINDINGS: Brain: Unremarkable. The christensen-white matter differentiation is preserved . No hemorrhag e. No significant white matter disease. No edema. No extra-axial fluid collections. Ventricles: Unremarkable. No ventriculomegaly. Bones/joints: No acute fracture. Soft tissues: Unremarkable. Sinuses: Unremarkable as visualized. No acute sinusitis. Mastoid air cells: Unremarkable as visualized. No mastoid effusion. IMPRESSION: No acute intracranial findings. Electronically signed by: Mima Mendoza MD 12/09/2018 6:57 AM CDT Due to temporary technical issues with the PACS/Fluency reporting system, reports are being signed by the in house radiologist as a courtesy to ensure prompt reporting. The interpreting radiologist is f ully responsible for the content of the report.
== END 2018-12-10 02:00 | disposition short-term general hospital (02) | DRG 444 ==
LOC: ER 06:06 → ERHOLD 09:14
PROVIDERS: ADMIT Family Medicine; ATTEND Family Medicine
DX: K80.51 Calculus of bile duct without cholangitis or cholecystitis with obstruction (principal); K85.10 Biliary acute pancreatitis without necrosis or infection; F17.210 Nicotine dependence, cigarettes, uncomplicated; B18.2 Chronic viral hepatitis C; E11.9 Type 2 diabetes mellitus without complications; I10 Essential (primary) hypertension; E87.6 Hypokalemia; D72.819 Decreased white blood cell count, unspecified
CPT/HCPCS: 36415; 70450; 71045; 76705; 80048; 80076; 80307; 80320; 81003; 82140; 82962; 83605; 83690; 83735; 83880; 84145; 84443; 84484; 85025; 85610; 87804; 93005; 94760; 96361; 96365; 99285; J1650; J3475; J7030

== ENCOUNTER 2019-03-30 13:25 | Inpatient (IN) | payer OTHER ==
--- OUTSIDE RECORDS SUMMARY | 2019-03-30 13:30 | XMS REPORT | Clinical Summary ---
:1955 Author Organization [facility] Address [address] [place] [address] Care Team Providers Name Role Phone Caroline Brown DO Primary Care Provider Allergies No Known Allergies Medications Medication Sig Dispensed Refills Start Date End Date Status gabapentin Take 1,200 mg by 0 Active (NEURONTIN) 600 MG mouth 3 (three) tablet times daily. linagliptin Take 5 mg by 0 Active (TRADJENTA) 5 mg Tab mouth daily. HYDROcodone-acetamin Take 1 tablet by 0 Active ophen (NORCO mouth 3 (three) 7.5-325) 7.5-325 mg times daily. per tablet traMADol (ULTRAM) 50 Take 100 mg by 0 Active mg tablet mouth 2 (two) times daily. lactulose Take 30 mLs (20 2000 mL 3 12/13/2018 Active (CHRONULAC) 20 g total) by gram/30 mL solution mouth 2 (two) times daily. rifAXIMin 550 mg Tab Take 1 tablet 180 tablet 3 12/13/2018 Active (550 mg total) by mouth 2 (two) times daily. sodium Take 2 tablets 360 tablet 0 12/13/2018 Active phosphates-potassium (500 mg total) phosphate (K-PHOS by mouth 4 NEUTRAL) 250 mg Tab (four) times tablet daily. cholecalciferol, Take 1 tablet 7 tablet 0 12/13/2018 Active vitamin D3, 50,000 (50,000 Units unit Tab total) by mouth once a week. cefdinir (OMNICEF) Take 1 capsule 20 capsule 0 12/13/2018 12/23/2018 300 MG capsule (300 mg total) by mouth every 12 (twelve) hours for 10 days. doxycycline Take 1 capsule 20 capsule 0 12/13/2018 12/23/2018 (MONODOX) 100 MG (100 mg total) capsule by mouth 2 (two) times daily for 10 days. 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 Hepatic encephalopathy 12/10/2018 Demand ischemia 12/10/2018 Encounters Date Type Specialty Care Team Description 12/10/2018 - [facility] General Internal Ros Coker MD Acute metabolic encephalopathy; 12/13/2018 Encounter Medicine Basilio, Anemia, chronic disease; [place] Thrombocytopenia (HCC); MD Bhupinder Type 2 diabetes mellitus with hyperglycemia, without long-term current use of insulin (HCC); Geraldo Chavez, Abnormal ECG; Elevated troponin level; Other cirrhosis of liver (HCC); Hep C w/o coma, chronic (HCC); Coagulopathy (HCC); Lactic acidosis; Abnormal liver enzymes; Dilated cbd, acquired; Altered mental status, unspecified altered mental status type; Cellulitis of right hand 12/10/2018 Orders Only General Internal Medicine 12/10/2018 Travel after 03/29/2018 Social History Tobacco Use Types Packs/Day Years Used Date Never Assessed Sex Assigned at Date Recorded Not on file Job Start Date Occupation Industry Not on file Not on file Not on file Travel History Travel Start Travel End No recent travel history available. Last Filed Vital Signs Vital Sign Reading Time Taken Blood Pressure 144/78 12/13/2018 3:00 PM CDT Pulse 72 12/13/2018 3:00 PM CDT Temperature 36.6 C (97.8 F) 12/13/2018 3:00 PM CDT Respiratory Rate 18 12/13/2018 3:00 PM CDT Oxygen Saturation 100% 12/13/2018 3:00 PM CDT Inhaled Oxygen Concentration - - Weight 80.8 kg (178 lb 1.6 oz) 12/12/2018 6:54 AM CDT Height 182.9 cm (6' 0.01") 12/10/2018 3:45 AM CDT Body Mass Index 24.15 12/12/2018 6:54 AM CDT Plan of Treatment Not on file Procedures Procedure Name Priority Date/Time Associated Comments Diagnosis RHYTHM STRIP - SCAN 01/28/2019 10:43 AM CDT REPORT OF PROCEDURE - 12/17/2018 2:21 ENDOSCOPY SCAN PM CDT RHYTHM STRIP - SCAN 12/17/2018 2:21 PM CDT POCT-GLUCOSE METER Routine 12/13/2018 12:24 Results for this PM CDT procedure are in the results section. CREATININE, RANDOM Routine 12/13/2018 10:09 Results for this URINE AM CDT procedure are in the results section. CHLORIDE, RANDOM URINE Routine 12/13/2018 10:09 Results for this AM CDT procedure are in the results section. SODIUM, RANDOM URINE Routine 12/13/2018 10:09 Results for this AM CDT procedure are in the results section. POTASSIUM, RANDOM URINE Routine 12/13/2018 10:09 Results for this AM CDT procedure are in the results section. URINALYSIS WITHOUT Routine 12/13/2018 10:09 Results for this MICROSCOPIC AM CDT procedure are in the results section. POCT-GLUCOSE METER Routine 12/13/2018 8:48 Results for this AM CDT procedure are in the results section. CBC W/PLT COUNT & AUTO Routine 12/13/2018 4:51 Results for this DIFFERENTIAL AM CDT procedure are in the results section. PT/APTT Routine 12/13/2018 4:51 Results for this AM CDT procedure are in the results section. VITAMIN D, 25-HYDROXY Routine 12/13/2018 4:51 Results for this AM CDT procedure are in the results section. PHOSPHORUS Routine 12/13/2018 4:51 Results for this AM CDT procedure are in the results section. MAGNESIUM Routine 12/13/2018 4:51 Results for this AM CDT procedure are in the results section. COMPREHENSIVE METABOLIC Routine 12/13/2018 4:51 Results for this PANEL AM CDT procedure are in the results section. CBC W/PLT COUNT & AUTO Routine 12/13/2018 4:51 Results for this DIFFERENTIAL AM CDT procedure are in the results section. ECHOCARDIOGRAM REPORT - 12/12/2018 9:10 SCAN PM CDT POCT-GLUCOSE METER Routine 12/12/2018 8:59 Results for this PM CDT procedure are in the results section. POCT-GLUCOSE METER Routine 12/12/2018 6:46 Results for this PM CDT procedure are in the results section. POCT-GLUCOSE METER Routine 12/12/2018 12:11 Results for this PM CDT procedure are in the results section. 2D ECHO MODE W/O MADISYN 12/12/2018 11:12 Results for this DOPPLER AM CDT procedure are in the results section. VANCOMYCIN LEVEL, Timed 12/12/2018 9:18 Results for this TROUGH AM CDT procedure are in the results section. POCT-GLUCOSE METER Routine 12/12/2018 8:12 Results for this AM CDT procedure are in the results section. HEPATIC FUNCTION PANEL Routine 12/12/2018 6:00 Results for this AM CDT procedure are in the results section. PHOSPHORUS Routine 12/12/2018 6:00 Results for this AM CDT procedure are in the results section. MAGNESIUM Routine 12/12/2018 6:00 Results for this AM CDT procedure are in the results section. COMPREHENSIVE METABOLIC Routine 12/12/2018 6:00 Results for this PANEL AM CDT procedure are in the results section. CBC W/PLT COUNT & AUTO Routine 12/12/2018 4:42 Results for this DIFFERENTIAL AM CDT procedure are in the results section. PT/APTT Routine 12/12/2018 4:42 Results for this AM CDT procedure are in the results section. HEMOGLOBIN A1C Routine 12/12/2018 4:42 Results for this AM CDT procedure are in the results section. VITAMIN B12 AND FOLATE Routine 12/12/2018 4:42 Results for this AM CDT procedure are in the results section. CBC W/PLT COUNT & AUTO Routine 12/12/2018 4:42 Results for this DIFFERENTIAL AM CDT procedure are in the results section. SALICYLATE LEVEL Routine 12/12/2018 4:42 Results for this AM CDT procedure are in the results section. ACETAMINOPHEN LEVEL Routine 12/12/2018 4:42 Results for this AM CDT procedure are in the results section. US ABDOMEN COMPLETE STAT 12/12/2018 3:22 Results for this AM CDT procedure are in the results section. POCT-GLUCOSE METER Routine 12/11/2018 9:00 Results for this PM CDT procedure are in the results section. MR UPPER EXT WO STAT 12/11/2018 7:12 Results for this CONTRAST RIGHT PM CDT procedure are in the results section. POCT-GLUCOSE METER Routine 12/11/2018 4:43 Results for this PM CDT procedure are in the results section. NM MYOCARDIAL PERFUSION MADISYN 12/11/2018 4:11 Results for this SPECT, PHARM(LEXISCAN) PM CDT procedure are in the results section. TREADMILL Routine 12/11/2018 2:18 Results for this TOLERANCE(NON-NUCLEAR PM CDT procedure are in TREADMILL) the results section. [id number]\\, Routine 12/11/2018 11:49 Results for this SERUM AM CDT procedure are in the results section. KALPANA TITER AND PATTERN Routine 12/11/2018 11:48 Results for this AM CDT procedure are in the results section. HEPATITIS C GENOTYPE Routine 12/11/2018 11:48 Results for this AM CDT procedure are in the results section. HIV-1 ANTIGEN WITH Routine 12/11/2018 11:48 Results for this HIV-1/2 ANTIBODY AM CDT procedure are in the results section. RPR Routine 12/11/2018 11:48 Results for this AM CDT procedure are in the results section. ANTI-NUCLEAR ANTIBODY Routine 12/11/2018 11:48 Results for this (KALPANA) AM CDT procedure are in the results section. ANTI-MITOCHONDRIAL AB, Routine 12/11/2018 11:48 REFLEX TO TITER AM CDT ACTIN (SMOOTH MUSCLE) Routine 12/11/2018 11:48 Results for this ANTIBODY, IGG AM CDT procedure are in the results section. CERULOPLASMIN Routine 12/11/2018 11:48 Results for this AM CDT procedure are in the results section. PT/APTT Routine 12/11/2018 11:48 Results for this AM CDT procedure are in the results section. BASIC METABOLIC PANEL Routine 12/11/2018 10:25 Results for this (7) AM CDT procedure are in the results section. BILIRUBIN, DIRECT Routine 12/11/2018 8:38 Results for this AM CDT procedure are in the results section. MAGNESIUM Routine 12/11/2018 8:38 Results for this AM CDT procedure are in the results section. POCT-GLUCOSE METER Routine 12/11/2018 7:26 Results for this AM CDT procedure are in the results section. CBC W/PLT COUNT & AUTO Routine 12/11/2018 3:39 Results for this DIFFERENTIAL AM CDT procedure are in the results section. T4, FREE Routine 12/11/2018 3:39 Results for this AM CDT procedure are in the results section. HEPATITIS A ANTIBODY, Routine 12/11/2018 3:39 Results for this IGG AM CDT procedure are in the results section. PHOSPHORUS Routine 12/11/2018 3:39 Results for this AM CDT procedure are in the results section. MAGNESIUM Routine 12/11/2018 3:39 Results for this AM CDT procedure are in the results section. TSH/FREE T4 IF Routine 12/11/2018 3:39 Results for this INDICATED AM CDT procedure are in the results section. LIPID PANEL Routine 12/11/2018 3:39 Results for this AM CDT procedure are in the results section. COMPREHENSIVE METABOLIC Routine 12/11/2018 3:39 Results for this PANEL AM CDT procedure are in the results section. CBC W/PLT COUNT & AUTO Routine 12/11/2018 3:39 Results for this DIFFERENTIAL AM CDT procedure are in the results section. HEPATITIS B SURFACE Routine 12/11/2018 3:39 Results for this ANTIGEN AM CDT procedure are in the results section. HEPATITIS B SURFACE Routine 12/11/2018 3:39 Results for this ANTIBODY AM CDT procedure are in the results section. HEPATITIS B CORE Routine 12/11/2018 3:39 Results for this ANTIBODY, TOTAL AM CDT procedure are in the results section. CT BRAIN WITHOUT IV MADISYN 12/11/2018 3:18 Results for this CONTRAST AM CDT procedure are in the results section. TROPONIN I Routine 12/11/2018 1:37 Results for this AM CDT procedure are in the results section. BASIC METABOLIC PANEL Routine 12/11/2018 1:37 Results for this (7) AM CDT procedure are in the results section. MAGNESIUM Routine 12/11/2018 1:37 Results for this AM CDT procedure are in the results section. PHOSPHORUS Routine 12/11/2018 1:37 Results for this AM CDT procedure are in the results section. POCT-GLUCOSE METER Routine 12/10/2018 10:13 Results for this PM CDT procedure are in the results section. POCT-GLUCOSE METER Routine 12/10/2018 5:37 Results for this PM CDT procedure are in the results section. HEPATITIS A ANTIBODY, Routine 12/10/2018 4:38 Results for this IGM PM CDT procedure are in the results section. PHOSPHORUS Routine 12/10/2018 4:38 Results for this PM CDT procedure are in the results section. MAGNESIUM Routine 12/10/2018 4:38 Results for this PM CDT procedure are in the results section. BASIC METABOLIC PANEL Routine 12/10/2018 4:38 Results for this (7) PM CDT procedure are in the results section. HEPATITIS C PCR, Routine 12/10/2018 4:38 Results for this QUANTITATIVE PM CDT procedure are in the results section. HEPATITIS C ANTIBODY Routine 12/10/2018 4:38 Results for this PM CDT procedure are in the results section. NM HEPATOBILIARY MADISYN 12/10/2018 2:33 Results for this IMAGING PM CDT procedure are in the results section. POCT-GLUCOSE METER Routine 12/10/2018 12:24 Results for this PM CDT procedure are in the results section. PHOSPHORUS Add-On 12/10/2018 12:01 Results for this PM CDT procedure are in the results section. MAGNESIUM Add-On 12/10/2018 12:01 Results for this PM CDT procedure are in the results section. BASIC METABOLIC PANEL STAT 12/10/2018 12:01 Results for this (7) PM CDT procedure are in the results section. TROPONIN I Routine 12/10/2018 12:01 Results for this PM CDT procedure are in the results section. LACTIC ACID, VENOUS STAT 12/10/2018 12:01 Results for this PM CDT procedure are in the results section. ECG 12-LEAD Routine 12/10/2018 10:50 Results for this AM CDT procedure are in the results section. ECG 12-LEAD Routine 12/10/2018 8:38 Results for this AM CDT procedure are in the results section. LACTIC ACID, VENOUS STAT 12/10/2018 8:15 Results for this AM CDT procedure are in the results section. BLOOD CULTURE STAT 12/10/2018 8:14 Results for this AM CDT procedure are in the results section. BLOOD CULTURE STAT 12/10/2018 8:14 Results for this AM CDT procedure are in the results section. URINALYSIS MICROSCOPIC Routine 12/10/2018 7:53 Results for this AM CDT procedure are in the results section. URINALYSIS WITH Routine 12/10/2018 7:53 Results for this MICROSCOPIC IF AM CDT procedure are in INDICATED the results section. CBC W/PLT COUNT & AUTO Routine 12/10/2018 5:05 Results for this DIFFERENTIAL AM CDT procedure are in the results section. PROTHROMBIN TIME/INR Routine 12/10/2018 5:05 Results for this AM CDT procedure are in the results section. TROPONIN I Routine 12/10/2018 5:05 Results for this AM CDT procedure are in the results section. PROCALCITONIN STAT 12/10/2018 5:05 Results for this AM CDT procedure are in the results section. LACTIC ACID, VENOUS STAT 12/10/2018 5:05 Results for this AM CDT procedure are in the results section. CBC W/PLT COUNT & AUTO Routine 12/10/2018 5:05 Results for this DIFFERENTIAL AM CDT procedure are in the results section. COMPREHENSIVE METABOLIC Routine 12/10/2018 5:05 Results for this PANEL AM CDT procedure are in the results section. after 03/29/2018 Results RHYTHM STRIP - SCAN (01/28/2019 10:43 AM CDT)Only the most recent of2 resultswithin the time period is included. Narrative Performed At EKG-SCANNED (12/17/2018 2:21 PM CDT) Narrative Performed At POC-Glucose meter (12/13/2018 12:24 PM CDT)Only the most recent of12 resultswithin the time period is included. POC-Glucose Meter 266 (H)Comment: TESTED AT 70 - 110 mg/dL [address] [address] Specimen Blood Performing Organization Address City/State/Zipcode Phone Number [address] [address] [phone] CENTER Urinalysis without Microscopic (12/13/2018 10:09 AM CDT) Color, UA Yellow [facility] Clarity, UA Clear [facility] Specific [place], UA 1.014 1.001 - 1.035 [facility] pH, UA 6.5 5.0 - 8.0 [facility] Protein, UA 70 mg/dL (A) Negative [facility] Glucose, UA Negative Negative [facility] Ketones, UA 10 mg/dL (A) Negative [facility] Bilirubin, UA Negative Negative [facility] Blood, UA Small (A) Negative [facility] Nitrite, UA Negative Negative [facility] Leukocytes, UA Negative Negative [facility] Urobilinogen, UA 0.2 0.2 - 1.0 mg/dL [facility] Specimen Source [facility] Specimen Urine Performing Organization Address City/State/Zipcode Phone Number [address] [address] [phone] [facility] Sodium, random urine (12/13/2018 10:09 AM CDT) Sodium Urine <20 meq/L [facility] Specimen Urine Narrative Performed At Reference Range: No Normals [facility] Performing Organization Address City/[facility] Phone Number [address] [phone] CENTER Potassium, random urine (12/13/2018 10:09 AM CDT) Potassium Urine 44.9 meq/L [facility] Specimen Urine Narrative Performed At Reference Range: No Normals [facility] Performing Organization Address City/[facility] Phone Number [address] [phone] [facility] Creatinine, random urine (12/13/2018 10:09 AM CDT) Creatinine, Ur 113.0 mg/dL [facility] Specimen Urine Narrative Performed At Reference Range: No Normals [facility] Performing Organization Address City/[facility] Phone Number [address] [address] CENTER Chloride, random urine (12/13/2018 10:09 AM CDT) ChlorideUr 20 meq/L [facility] Specimen Urine Narrative Performed At Reference Range: No Normals [facility] Performing Organization Address City/State/Zipcode Phone Number [address] [address] [phone] CENTER PT/aPTT (12/13/2018 4:51 AM CDT)Only the most recent of3 resultswithin the time period is included. Protime 18.7 (H) 11.7 - 14.7 seconds [facility] INR 1.5 <=5.9 [facility] PTT 76.7 (H) 22.5 - 36.0 seconds [facility] Specimen Blood Narrative Performed At RECOMMENDED COUMADIN/WARFARIN INR THERAPY [facility] RANGES STANDARD DOSE: 2.0 - 3.0 Includes: PROPHYLAXIS for venous thrombosis, systemic embolization; TREATMENT for venous thrombosis and/or pulmonary embolus. HIGH RISK: Target INR is 2.5-3.5 for patients with mechanical heart valves. Performing Organization Address City/State/Zipcode Phone Number [facility] [address] [place] [address] [phone] [facility] CBC with platelet count + automated diff (12/13/2018 4:51 AM CDT)Only the most recent of4 resultswithin the time period is included. WBC 7.3 3.5 - 10.5 K/L [facility] RBC 3.08 (L) 4.63 - 6.08 M/L [facility] Hemoglobin 10.5 (L) 13.7 - 17.5 GM/DL [facility] Hematocrit 31.1 (L) 40.1 - 51.0 % [facility] MCV 101.0 (H) 79.0 - 92.2 fL [facility] MCH 34.1 (H) 25.7 - 32.2 pg [facility] MCHC 33.8 32.3 - 36.5 GM/DL [facility] RDW 20.1 (H) 11.6 - 14.4 % [facility] Platelets 86 (L) 150 - 450 K/CU MM [facility] MPV 11.7 9.4 - 12.4 fL [facility] nRBC 0 0 - 0 /100 WBC [facility] % Neutros 56 % [facility] % Lymphs 31 % [facility] % Monos 11 % [facility] % Eos 2 % [facility] % Baso 0 % [facility] # Neutros 4.06 1.78 - 5.38 K/L [facility] # Lymphs 2.26 1.32 - 3.57 K/L [facility] # Monos 0.77 0.30 - 0.82 K/L [facility] # Eos 0.17 0.04 - 0.54 K/L [facility] # Baso 0.03 0.01 - 0.08 K/L [facility] Immature 1 0 - 1 % [facility] Specimen Blood Performing Organization Address City/State/Zipcode Phone Number [address] [address] [phone] CENTER Vitamin D, 25-Hydroxy (12/13/2018 4:51 AM CDT) Vitamin D 25-Hydroxy 9.9 6.6 - 49.9 ng/mL [facility] Specimen Blood Narrative Performed At Effective 07/05/2017: Reference Range Change [facility] New: 6.6-49.9 ng/mL Previous: 13.0-47.8 ng/mL Recommended Vitamin D Target Range: 30.0-40.0 ng/mL Performing Organization Address City/[facility] Phone Number [address] [address] CENTER Phosphorus (12/13/2018 4:51 AM CDT)Only the most recent of6 resultswithin the time period is included. Phosphorus 2.1 (L) 2.3 - 4.7 mg/dL [facility] Specimen Blood Performing Organization Address City/State/Zipcode Phone Number [address] [phone] [facility] Magnesium (12/13/2018 4:51 AM CDT)Only the most recent of7 resultswithin the time period is included. Magnesium 1.6 1.6 - 2.6 mg/dL [facility] Specimen Blood Performing Organization Address City/[facility]/Zipcode Phone Number [address] [address] [phone] [facility] Comprehensive metabolic panel (12/13/2018 4:51 AM CDT)Only the most recent of4 resultswithin the time period is included. Protein, Total 5.9 (L) 6.0 - 8.3 gm/dL [facility] Albumin 2.3 (L) 3.5 - 5.0 g/dL [facility] Alkaline Phosphatase 127 40 - 150 U/L [facility] Total Bilirubin 1.2 0.2 - 1.2 mg/dL [facility] Sodium 139 136 - 145 meq/L [facility] Potassium 3.5 3.5 - 5.1 meq/L [facility] Chloride 117 (H) 98 - 107 meq/L [facility] CO2 16 (L) 22 - 29 meq/L [facility] BUN 21 7 - 21 mg/dL [facility] Creatinine 1.11 0.57 - 1.25 mg/dL [facility] Glucose 97 70 - 105 mg/dL [facility] Calcium 7.8 (L) 8.4 - 10.2 mg/dL [facility] AST 117 (H) 5 - 34 U/L [facility] ALT 51 6 - 55 U/L [facility] EGFR 67Comment: ESTIMATED GFR mL/min/1.73 sq m [facility] IS NOT ACCURATE [facility] CREATININE CLEARANCE IN PREDICTING GLOMERULAR FILTRATION RATE. ESTIMATED GFR IS NOT APPLICABLE FOR DIALYSIS PATIENTS. Specimen Blood Performing Organization Address City/State/Zipcode Phone Number [facility] [address] [place] [address] CENTER ECHOCARDIOGRAM REPORT - SCAN (12/12/2018 9:10 PM CDT) Narrative Performed At 2D Echo W/O Doppler(No Doppler) (12/12/2018 11:12 AM CDT) Ejection Fraction [facility] [employer] (acquired by [employer] in 2014) [facility] Specimen Narrative Performed At Transthoracic Echocardiography Report (TTE) [facility] Dem[facility] Patient Name OPHELIA FARRAR Date of Study 12/12/2018 [id number] GenderMale Visit Number [id number] Accession Number [id number] Room Number 2219 Date of Birth1955Referring Physician Geraldo Chavez Age63 year(s)[employer]nc Manager Alvaro Kimbrough [facility] InterpretingYoch nathan Garcia MD Physician Procedure Type of Study TTE procedure:ECHO2D MODE W/O DOPPLER (MADISYN) Indications:Abnormal ECG. Clinical History HGB 10.4 HCT 30.2 % HTN, DM 2 Height: 72 inches Weight: 80.74 kg (178 lbs) BSA: 2.03 m^2 BMI: 24.14 kg/m^2 HR: 65 bpm BP: 143/72 mmHg Summary Normal LV wall thickness. The left ventricle is chamber size (by vol index) is normal (male - LVED vol - 34-74ml/m2). Global LV systolic function normal . LVEF by Cotto's method of disk assessment is normal (55-60%) . Grade 1 diastolic dysfunction (impaired relaxation and low-normal LA pressure). LA is well visualized. LA size is normal . The right ventricular chamber size and systolic function are within normal limits. RA size is normal. No significant valvular abnormality Estimated peak systolic PA pressure is 20-25 mmHg . The estimated RA pressure by IVC dynamics 5-10mmHg . Signature Findings Rhythm/BPRegular sinus rhythm during the exam. Left Ventricle Normal LV wall thickness. Th e left ventricle is chamber size (by vol index) is normal (male - LVED vol - 34-74ml/m2). Gl obal LV systolic function normal . LV EF by Cotto's method of disk assessment is no rmal (55-60%) . Gr joy 1 diastolic dysfunction (impaired relaxation an d low-normal LA pressure). Left AtriumLA is well visualized. LA size is normal . Right VentricleThe right ventricular chamber size and systolic fu nction are within normal limits. Right Atrium RA size is normal. Aortic Valve Normal tri-leaflet Aortic Valve. No rmal AoV structure and function. Mitral Valve Normal MV structure. Mild focal calcification of th e anterior papillary muscle. Tr elizabeth mitral regurgitation. Tricuspid ValveTV structure is normal. A trace of tricuspid regurgitation. Es timated peak systolic PA pressure is 20-25 mmHg . Pulmonic Valve Normal PV structure and function by limited views an d Doppler. AortaAortic root size (SInus of Valsalva diameter) is no rmal . PericardiumNo pericardial effusion is visualized. IVC/SVC/PA/PV/PleuralThe estimated RA pressure by IVC dynamics 5-10mmHg . Chambers/Structures Left Atrium LA Volume: 44.69 ml LA Area: 17.53 cm^2 LA Vol. Index: 22 ml/m^2 Left Ventricle LVIDd: 4.4 cm LVEDV:87.71 ml LV Septum Diastolic: 0.99 cm LV PW Diastolic: 1.05 cm LVEDV Cotto's:89.48 mlLV Length: 8.29 cm LVESV Cotto's:40.28 ml LVEF Cotto's: 55 % LVEDVI: 44 ml/m^2 LVESVI: 20 ml/m^2 LVOT Diameter: 2.2 cm Doppler/Quantitative Measurements Mitral Valve MV Peak E-Wave: 0.72 m/sMV Peak A-Wave: 0.92 m/s E/A Ratio: 0.78 Peak Gradient: 2.06 mmHg Deceleration Time: 278.4 msec MV Hung. Peak: Tissue Doppler E' Septal Velocity: 0.09 m/s Aortic Valve Peak Velocity: 1.67 m/sMean Velocity: 1.1 m/s Peak Gradient: 11.09 mmHgMean Gradient: 5.39 mmHg AV Area (continuity): 3.18 cm^2 AV VTI: 31.52 cm AV DVI: 0.84 LVOT Peak Velocity: 1.31 m/s Peak Gradient: 6.89 mmHg Mean Velocity: 0.91 m/s Mean Gradient: 3.63 mmHg LVOT Diameter: 2.2 cm LVOT VTI: 26.37 cm LVOT Area: 3.8 cm^2 LVOT SV:100.19 ml LVOT CO: 6.51 l/min LVOT CI: 3.21 l/min/m^2 Tricuspid Valve TR Velocity: 2.17 m/s TR Gradient: 18.78 mmHg Procedure Note Interface, External Ris In - 12/12/2018 2:05 PM CDT Transthoracic Echocardiography Report (TTE) Demographics Patient Name OPHELIA FARRAR Date of Study 12/12/2018 Gender Male Visit Number [id number] Race Accession Number [id number] Room Number [id number] Date of 1955 Referring Physician Geraldo hCavez Age 63 year(s) [employer]nc Manager Alvaro Kimbrough [facility] Interpreting Lena Garcia MD Physician Procedure Type of Study TTE procedure:ECHO2D MODE W/O DOPPLER (MADISYN) Indications:Abnormal ECG. Clinical History HGB 10.4 HCT 30.2 % HTN, DM 2 Height: 72 inches Weight: 80.74 kg (178 lbs) BSA: 2.03 m^2 BMI: 24.14 kg/m^2 HR: 65 bpm BP: 143/72 mmHg Summary Normal LV wall thickness. The left ventricle is chamber size (by vol index) is normal (male - LVED vol - 34-74ml/m2). Global LV systolic function normal . LVEF by Cotto's method of disk assessment is normal (55-60%) . Grade 1 diastolic dysfunction (impaired relaxation and low-normal LA pressure). LA is well visualized. LA size is normal . The right ventricular chamber size and systolic function are within normal limits. RA size is normal. No significant valvular abnormality Estimated peak systolic PA pressure is 20-25 mmHg . The estimated RA pressure by IVC dynamics 5-10mmHg . Signature Findings Rhythm/BP Regular sinus rhythm during the exam. Left Ventricle Normal LV wall thickness. The left ventricle is chamber size (by vol index) is normal (male - LVED vol - 34-74ml/m2). Global LV systolic function normal . LVEF by Cotto's method of disk assessment is normal (55-60%) . Grade 1 diastolic dysfunction (impaired relaxation and low-normal LA pressure). Left Atrium LA is well visualized. LA size is normal . Right Ventricle The right ventricular chamber size and systolic function are within normal limits. Right Atrium RA size is normal. Aortic Valve Normal tri-leaflet Aortic Valve. Normal AoV structure and function. Mitral Valve Normal MV structure. Mild focal calcification of the anterior papillary muscle. Trace mitral regurgitation. Tricuspid Valve TV structure is normal. A trace of tricuspid regurgitation. Estimated peak systolic PA pressure is 20-25 mmHg . Pulmonic Valve Normal PV structure and function by limited views and Doppler. Aorta Aortic root size (SInus of Valsalva diameter) is normal . Pericardium No pericardial effusion is visualized. IVC/SVC/PA/PV/Pleural The estimated RA pressure by IVC dynamics 5-10mmHg . Chambers/Structures Left Atrium LA Volume: 44.69 ml LA Area: 17.53 cm^2 LA Vol. Index: 22 ml/m^2 Left Ventricle LVIDd: 4.4 cm LVEDV:87.71 ml LV Septum Diastolic: 0.99 cm LV PW Diastolic: 1.05 cm LVEDV Cotto's:89.48 ml LV Length: 8.29 cm LVESV Cotto's:40.28 ml LVEF Cotto's: 55 % LVEDVI: 44 ml/m^2 LVESVI: 20 ml/m^2 LVOT Diameter: 2.2 cm Doppler/Quantitative Measurements Mitral Valve MV Peak E-Wave: 0.72 m/s MV Peak A-Wave: 0.92 m/s E/A Ratio: 0.78 Peak Gradient: 2.06 mmHg Deceleration Time: 278.4 msec MV Hung. Peak: Tissue Doppler E' Septal Velocity: 0.09 m/s Aortic Valve Peak Velocity: 1.67 m/s Mean Velocity: 1.1 m/s Peak Gradient: 11.09 mmHg Mean Gradient: 5.39 mmHg AV Area (continuity): 3.18 cm^2 AV VTI: 31.52 cm AV DVI: 0.84 LVOT Peak Velocity: 1.31 m/s Peak Gradient: 6.89 mmHg Mean Velocity: 0.91 m/s Mean Gradient: 3.63 mmHg LVOT Diameter: 2.2 cm LVOT VTI: 26.37 cm LVOT Area: 3.8 cm^2 LVOT SV:100.19 ml LVOT CO: 6.51 l/min LVOT CI: 3.21 l/min/m^2 Tricuspid Valve TR Velocity: 2.17 m/s TR Gradient: 18.78 mmHg Performing Organization Address City/State/Zipcode Phone Number [facility] Vancomycin level, trough (12/12/2018 9:18 AM CDT) Vancomycin Tr 18.1 10.0 - 20.0 ug/mL [facility] Specimen Blood Narrative Performed At Please draw 30 minutes before 4th dose [facility] Performing Organization Address [facility]/Zipcode Phone Number [facility] [address] [place] [address] [phone] [place] Hepatic function panel (12/12/2018 6:00 AM CDT) Protein, Total 6.0 6.0 - 8.3 gm/dL [facility] Albumin 2.4 (L) 3.5 - 5.0 g/dL [facility] Total Bilirubin 1.4 (H) 0.2 - 1.2 mg/dL [facility] Bilirubin, Direct 0.8 (H) 0.1 - 0.5 mg/dL [facility] Alkaline Phosphatase 115 40 - 150 U/L [facility] AST 118 (H) 5 - 34 U/L [facility] ALT 47 6 - 55 U/L [facility] Specimen Blood Performing Organization Address [facility] Phone Number [address] [address] [place] Vitamin B12 and Folate (12/12/2018 4:42 AM CDT) Vitamin B12 >2000 (H) 213 - 816 pg/mL [facility] Folate 13.2 >=7.0 ng/mL [facility] Specimen Blood Performing Organization Address City/[facility]/Zipcode Phone Number [facility] [address] [place] [address] [place] Hemoglobin A1c (12/12/2018 4:42 AM CDT) Hemoglobin A1C 5.1 4.3 - 6.1 % [facility] Specimen Blood Performing Organization Address City/State/Zipcode Phone Number [facility] [address] [place] [address] Acetaminophen level (12/12/2018 4:42 AM CDT) Acetaminophen Level <5.7 (L)Comment: 10.0 - 30.0 ug/mL [facility] Specimen moderately [facility] hemolyzed Specimen Blood Narrative Performed At Therapeutic Range: 10.0-30.0 g/mL [facility] Toxic Levels:>200.0 g/mL Performing Organization Address City/[facility] Phone Number [address] [address] [place] Salicylate level (12/12/2018 4:42 AM CDT) Salicylate Lvl <5.0 (L) 15.0 - 30.0 mg/dL [facility] Specimen Blood Narrative Performed At Therapeutic Range: 15.0-30.0 mg/dL [facility] Toxic: >30.0 mg/dL Lethal:>70.0 mg/dL Performing Organization Address [facility] Phone Number [address] [address] [place] US abdomen complete (12/12/2018 3:22 AM CDT) Specimen Narrative Performed At FINAL REPORT [employer] INDICATION: eval liver for cirrhosis, cbd size, gb wall thickening COMPARISON: None. TECHNIQUE:Real-time transabdominal christensen scale and color Doppler ultrasound of the abdomen. FINDINGS: Liver: Size: 10.6cm. Echogenicity: Coarsened hepatic echogenicity Masses/lesions: None. Surface Nodularity: Present. Intrahepatic bile ducts: Normal. Common bile duct: 0.6 cm. MPV: 1.4cm. Gallbladder: Stones: 9 mm stone in the gallbladder neck. Sludge: None. Wall thickness: 0.5 cm. The gallbladder lumen is nondistended. Pericholecystic fluid: None. Sonographic Zimmerman's sign: No sonographic Zimmerman's sign. Pancreas: Head and uncinate process: Unremarkable. Body and tail: Not well-seen. Spleen: Size: 14.3cm. Echogenicity: Unremarkable. Right kidney: Size: 14.0 x 6.0 x 5.8 cm. Parenchyma: Normal echogenicity. There is a simple cyst in the lower pole measuring 1.5 x 1.6 x 1.6 cm. Echogenic 0.9 cm focus in the lower pole which may represent nephrolithiasis. Hydronephrosis: None. Left kidney: Size: 12.0 x 5.5 x 5.0 cm. Parenchyma: Normal echogenicity. No cysts. No stones. Hydronephrosis: None. Ascites: Moderate volume intra-abdominal ascites. Regional Vasculature: The visible abdominal aorta, IVC and hepatic veins are patent. The aorta measures 2.2 cm proximally, 2.2 cm in the midportion 1.8 cm distally. Additional findings: None. IMPRESSION: Morphologic changes of cirrhosis with sequela of portal hypertension including splenomegaly and moderate volume intra-abdominal ascites. Cholelithiasis. Gallbladder wall thickening is nonspecific in the setting of cirrhosis and under distention of the gallbladder lumen. Right renal cyst and possible nonobstructing nephrolithiasis. Signed: Vi Whitman MD Report Verified Date/Time:12/12/2018 04:29:04 Reading Location: [address] Transitional Reading Room Procedure Note Interface, External Ris In - 12/12/2018 4:31 AM CDT FINAL REPORT INDICATION: eval liver for cirrhosis, cbd size, gb wall thickening COMPARISON: None. TECHNIQUE: Real-time transabdominal christensen scale and color Doppler ultrasound of the abdomen. FINDINGS: Liver: Size: 10.6cm. Echogenicity: Coarsened hepatic echogenicity Masses/lesions: None. Surface Nodularity: Present. Intrahepatic bile ducts: Normal. Common bile duct: 0.6 cm. MPV: 1.4cm. Gallbladder: Stones: 9 mm stone in the gallbladder neck. Sludge: None. Wall thickness: 0.5 cm. The gallbladder lumen is nondistended. Pericholecystic fluid: None. Sonographic Zimmerman's sign: No sonographic Zimmerman's sign. Pancreas: Head and uncinate process: Unremarkable. Body and tail: Not well-seen. Spleen: Size: 14.3cm. Echogenicity: Unremarkable. Right kidney: Size: 14.0 x 6.0 x 5.8 cm. Parenchyma: Normal echogenicity. There is a simple cyst in the lower pole measuring 1.5 x 1.6 x 1.6 cm. Echogenic 0.9 cm focus in the lower pole which may represent nephrolithiasis. Hydronephrosis: None. Left kidney: Size: 12.0 x 5.5 x 5.0 cm. Parenchyma: Normal echogenicity. No cysts. No stones. Hydronephrosis: None. Ascites: Moderate volume intra-abdominal ascites. Regional Vasculature: The visible abdominal aorta, IVC and hepatic veins are patent. The aorta measures 2.2 cm proximally, 2.2 cm in the midportion 1.8 cm distally. Additional findings: None. IMPRESSION: Morphologic changes of cirrhosis with sequela of portal hypertension including splenomegaly and moderate volume intra-abdominal ascites. Cholelithiasis. Gallbladder wall thickening is nonspecific in the setting of cirrhosis and under distention of the gallbladder lumen. Right renal cyst and possible nonobstructing nephrolithiasis. Signed: Vi Whitman MD Report Verified Date/Time: 12/12/2018 04:29:04 Reading Location: [address] Transitional Reading Room Performing Organization Address City/State/Zipcode Phone Number [employer] MR upper extremity without IV contrast right (12/11/2018 7:12 PM CDT) Specimen Narrative Performed At FINAL REPORT [employer] Indication: ulceration on 1st MTP right hand. MRI right hand TECHNIQUE: Multiplanar multisequence MRI examination of the right hand was performed without intravenous contrast. COMPARISON: None FINDINGS: There is diffuse subcutaneous edema throughout the right hand without fluid collection or hematoma. There is no fracture or traumatic malalignment. There is no bony erosion or destruction. There is no significant bone marrow edema. There is no significant joint effusion. There is mild edema-like signal in the muscles of the right hand and wrist. There is no evidence of fasciitis. The tendons and muscles are intact. IMPRESSION: 1. Diffuse subcutaneous edema without fluid collection or hematoma. No MR evidence of osteomyelitis or septic arthritis. Signed: Babak Hidalgo MD Report Verified Date/Time:12/12/2018 11:15:34 Reading Location: [facility] [id number] Ortho Consult Reading Room Procedure Note Interface, External Ris In - 12/12/2018 11:17 AM CDT FINAL REPORT Indication: ulceration on 1st MTP right hand. MRI right hand TECHNIQUE: Multiplanar multisequence MRI examination of the right hand was performed without intravenous contrast. COMPARISON: None FINDINGS: There is diffuse subcutaneous edema throughout the right hand without fluid collection or hematoma. There is no fracture or traumatic malalignment. There is no bony erosion or destruction. There is no significant bone marrow edema. There is no significant joint effusion. There is mild edema-like signal in the muscles of the right hand and wrist. There is no evidence of fasciitis. The tendons and muscles are intact. IMPRESSION: 1. Diffuse subcutaneous edema without fluid collection or hematoma. No MR evidence of osteomyelitis or septic arthritis. Signed: Babak Hidalgo MD Report Verified Date/Time: 12/12/2018 11:15:34 Reading Location: [address] Ortho Consult Reading Room Performing Organization Address City/State/Zipcode Phone Number [employer] NM myocardial perfusion SPECT, pharm(Lexiscan) (12/11/2018 4:11 PM CDT) Specimen Narrative Performed At FINAL REPORT [employer] PROCEDURE: MYOCARDIAL PERFUSION SPECT IMAGING (Rest/Stress) CPT CODE: 24218 INDICATION: Chest pain, suspected acute coronary syndrome CARDIOVASCULAR PROFILE: CAD History: None Symptoms: Chest pain Risk Factors: Diabetes, hypertension BMI: 23.7 Medications: Aspirin, amlodipine, atorvastatin, metoprolol STRESS PROTOCOL: Pharmacologic stress was achieved with a 10-second intravenous infusion of regadenoson 0.4 mg. Per protocol, "peak stress" is defined as occurring 30 seconds after the start of the regadenoson infusion. IMAGING PROTOCOL: 10.8 mCi of Tc-99m sestamibi was injected intravenously at rest, and gated SPECT images were obtained. Then, 30.7 mCi of Tc-99m sestamibi was injected intravenously at peak stress, and gated SPECT images were obtained. REST FINDINGS: HR: 61/min BP: 156/83 mmHg Prelim. EKG: Normal sinus rhythm. Perfusion: There is moderate decrease in activity in the apical inferior segment(s). Wall Motion: Normal (LVEF 59%). LV Volume: Normal. RV Volume: Normal. STRESS FINDINGS: HR: 62/min (38% of MPHR) BP: 157/82 mmHg Prelim. EKG: No ischemic changes. Symptoms: None (treatment not required). Perfusion: Not significantly changed from rest. Wall Motion: Normal (LVEF 65%). LV Volume: Not significantly changed from rest. IMPRESSION: 1. Normal study. 2. Normal myocardial perfusion. Inferoapical fixed defect is consistent with attenuation artifact. 3. Normal global LVEF, which does not deteriorate with stress. 4. Normal extracardiac tracer distribution. 5. There is no prior study for comparison. Signed: aMriela Mena MD Report Verified Date/Time:12/11/2018 16:37:32 Reading Location: [address] Reading Room Procedure Note Interface, External Ris In - 12/11/2018 4:39 PM CDT FINAL REPORT PROCEDURE: MYOCARDIAL PERFUSION SPECT IMAGING (Rest/Stress) CPT CODE: [id number] INDICATION: Chest pain, suspected acute coronary syndrome CARDIOVASCULAR PROFILE: CAD History: None Symptoms: Chest pain Risk Factors: Diabetes, hypertension BMI: 23.7 Medications: Aspirin, amlodipine, atorvastatin, metoprolol STRESS PROTOCOL: Pharmacologic stress was achieved with a 10-second intravenous infusion of regadenoson 0.4 mg. Per protocol, "peak stress" is defined as occurring 30 seconds after the start of the regadenoson infusion. IMAGING PROTOCOL: 10.8 mCi of Tc-99m sestamibi was injected intravenously at rest, and gated SPECT images were obtained. Then, 30.7 mCi of Tc-99m sestamibi was injected intravenously at peak stress, and gated SPECT images were obtained. REST FINDINGS: HR: 61/min BP: 156/83 mmHg Prelim. EKG: Normal sinus rhythm. Perfusion: There is moderate decrease in activity in the apical inferior segment(s). Wall Motion: Normal (LVEF 59%). LV Volume: Normal. RV Volume: Normal. STRESS FINDINGS: HR: 62/min (38% of MPHR) BP: 157/82 mmHg Prelim. EKG: No ischemic changes. Symptoms: None (treatment not required). Perfusion: Not significantly changed from rest. Wall Motion: Normal (LVEF 65%). LV Volume: Not significantly changed from rest. IMPRESSION: 1. Normal study. 2. Normal myocardial perfusion. Inferoapical fixed defect is consistent with attenuation artifact. 3. Normal global LVEF, which does not deteriorate with stress. 4. Normal extracardiac tracer distribution. 5. There is no prior study for comparison. Signed: Mariela Mena MD Report Verified Date/Time: 12/11/2018 16:37:32 Reading Location: [address] Reading Room Performing Organization Address [facility] Phone Number GE RIS Treadmill tolerance(Non-Nuclear Treadmill) (12/11/2018 2:18 PM CDT) Specimen Narrative Performed At Protocol Name Voice Assist MUSE Time In Exercise Phase 00:01:00 Max. Systolic BP 151 mmHg Max Diastolic BP 82 mmHg Max Heart Rate 62 BPM Max Predicted Heart Rate 159 BPM Reason For Termination Predetermined end point Reason for Test Chest Pain Elevated Troponin I Target HR Formula (220 - Age)*100% Arrhythmias Premature Ventricular Contractions-Isolated Resting ECG Normal sinus rhythm ST Changes No Significant Changes Overall Impression Indeterminate due to pharmacological stress Chest Pain none HR Response To Exercise BP Response To Exercise ASA AMLODIPINE Atorvastatin metoprolol Confirmed by fellow Arpan Funes ([id number]) on 12/11/2018 3:03:30 PM Confirmed by MD JONES JORGE ([id number]) on 12/27/2018 1:02:13 PM Procedure Note Interface, External Ris In - 12/27/2018 1:02 PM CDT Protocol Name [employer] Time In Exercise Phase 00:01:00 Max. Systolic BP 151 mmHg Max Diastolic BP 82 mmHg Max Heart Rate 62 BPM Max Predicted Heart Rate 159 BPM Reason For Termination Predetermined end point Reason for Test Chest Pain Elevated Troponin I Target HR Formula (220 - Age)*100% Arrhythmias Premature Ventricular Contractions-Isolated Resting ECG Normal sinus rhythm ST Changes No Significant Changes Overall Impression Indeterminate due to pharmacological stress Chest Pain none HR Response To Exercise BP Response To Exercise ASA AMLODIPINE Atorvastatin metoprolol Confirmed by fellow Arpan Funes ([id number]) on 12/11/2018 3:03:30 PM Confirmed by MD JONES JORGE ([id number]) on 12/27/2018 1:02:13 PM Performing Organization Address [facility] Phone Number GE MUSE [id number] (12/11/2018 11:49 AM CDT) A-1 Antitrypsin 196.00 90.00 - 200.00 mg/dL [facility] Specimen Blood Performing Organization Address City/[facility]/Zipcode Phone Number [facility] [address] [place] [address] CENTER Anti-Mitochondrial Ab, reflex to titer (12/11/2018 11:48 AM CDT) Scan Result [facility] Specimen Blood Narrative Performed At Performing Organization Address City/[facility] Phone Number [facility] [address] [facility]OR[facility]ATED [address] [address] [facility] HIV-1 Antigen with HIV-1/2 Antibody (12/11/2018 11:48 AM CDT) HIV-1 Antigen with HIV 1&2 Nonreactive Nonreactive [facility] Specimen Blood Performing Organization Address [facility]/Zipcode Phone Number [facility] [address] [place] [address] [phone] CENTER Actin (Smooth Muscle) Antibody, IgG (12/11/2018 11:48 AM CDT) Anti-Smooth Muscle Ab <20 See Note: U [facility] Comment: INCORPORATED Reference Range: <20 NEGATIVE > OR=20 POSITIVE Antibodies recognizing actin are the main component of smooth muscle antibodies associated with autoimmune liver disease. Actin antibodies are found in approximately 75% of patients with autoimmune hepatitis (AIH) type 1, approximately 65% of patients with autoimmune cholangitis, approximately 30% of patients with primary biliary cirrhosis, and approximately 2% of healthy people. High values are closely correlated with AIH type 1. Specimen Blood Narrative Performed At Performing Lab [facility] [employer] [address] [place] [address] Eileen Rubalcava MD, PhD, MEGAN Performing Organization Address City/[facility] Phone Number [place] [address] [facility]ORPORATED [address] [place] Titer & Pattern (12/11/2018 11:48 AM CDT) [place] Titer 1:160 [facility] [place] Pattern Nucleolar [facility] Specimen Blood Performing Organization Address City/State/Zipcode Phone Number [facility] [address] [place] [address] [phone] CENTER Ceruloplasmin (12/11/2018 11:48 AM CDT) Ceruloplasmin 29 18 - 36 mg/dL [facility] Comment: Adults:Males: 18-36 mg/dL Females: 18-53 mg/dL Pediatrics:Males (mg/dL)Females (mg/dL) 0-30 Days 8-25 3-28 31 Days-11 Month [id number] 1-3 [id number] 4-6 [id number] 7-9 [id number] 10-12 [id number] 13-15 [id number] 16-18 [id number] The pediatric ranges are derived from the following criteria: Guillaume SJ, Anne JM, Kaila J et al Pediatric reference ranges for Adzn-[id number] and ceruloplasmin. Clin. Chem 1997; 43:S1999 Pediatric Reference Ranges, 2nd., [place] Guillaume,et al. editors. [employer], [place], [place] 1997. Specimen Blood Narrative Performed At Performing Lab [facility] *SPL [facility], [address] [place] [phone] Orlando Dang MD, PhD Performing Organization Address City/State/Zipcode Phone Number [facility] [place] [address] INCORPORATED [address] [facility] Hepatitis C genotype (12/11/2018 11:48 AM CDT) HCV Genotype, LiPA 1a [facility] Comment: INCORPORATED The method used in this test is RT-PCR and reverse hybridization (Line Probe) of the 5' UTR and core region of the HCV genome. The analytical performance characteristics of this assay have been determined by [facility]. The modifications have not been cleared or approved by the FDA. This assay has been validated pursuant to the CLIA regulations and is used for clinical purposes. For additional information, please refer to http://education.[facility] /faq/HCVGenotyping (This link id being provided for informational/ educational purposes only.) Specimen Blood Narrative Performed At Performing Lab [facility] *QDID [facility] [address] [place] [address] Alpesh Gates MD Performing Organization Address City/[facility]/Zipcode Phone Number [place] [address] INCORPORATED [address] [facility] RPR (12/11/2018 11:48 AM CDT) RPR Nonreactive Nonreactive [facility] Specimen Blood Performing Organization Address [facility]/Zipcode Phone Number [address] [address] [phone] CENTER Anti-Nuclear Antibody ([place]) (12/11/2018 11:48 AM CDT) [place] Positive (A) Negative [facility] Specimen Blood Narrative Performed At Test performed by IFA method. [facility] Performing Organization Address [facility]/Zipcode Phone Number [address] [address] CENTER Basic Metabolic Panel (12/11/2018 10:25 AM CDT)Only the most recent of4 resultswithin the time period is included. Sodium 141 136 - 145 meq/L [facility] Potassium 3.5 3.5 - 5.1 meq/L [facility] Chloride 113 (H) 98 - 107 meq/L [facility] CO2 19 (L) 22 - 29 meq/L [facility] BUN 11 7 - 21 mg/dL [facility] Creatinine 1.03 0.57 - 1.25 mg/dL [facility] Glucose 122 (H) 70 - 105 mg/dL [facility] Calcium 8.1 (L) 8.4 - 10.2 mg/dL [facility] EGFR 73Comment: ESTIMATED GFR IS mL/min/1.73 sq m [facility] NOT ACCURATE [facility] CLEARANCE IN PREDICTING GLOMERULAR FILTRATION RATE. ESTIMATED GFR IS NOT APPLICABLE FOR DIALYSIS PATIENTS. Specimen Blood Narrative Performed At Specimen slightly icteric [facility] Performing Organization Address City/[facility] Phone Number [address] [address] [place] Bilirubin, direct (12/11/2018 8:38 AM CDT) Bilirubin, Direct 0.5Comment: Specimen 0.1 - 0.5 mg/dL [facility] markedly hemolyzed [facility] Specimen Blood Performing Organization Address [facility] Phone Number [address] [address] [place] Hepatitis A antibody, IgG (12/11/2018 3:39 AM CDT) Hep A IgG Reactive (A) Nonreactive [facility] Specimen Blood Performing Organization Address [facility] Phone Number [address] [address] [phone] [place] TSH/Free T4 If Indicated (12/11/2018 3:39 AM CDT) TSH 0.22 (L) 0.35 - 4.94 uIU/mL [facility] Specimen Blood Performing Organization Address [facility] Phone Number [address] [address] [phone] [place] Hepatitis B core antibody, total (12/11/2018 3:39 AM CDT) Hep B Core Total Ab Nonreactive Nonreactive [facility] Specimen Blood Performing Organization Address [facility]/Zipcode Phone Number [address] [phone] [place] Hepatitis B surface antibody (12/11/2018 3:39 AM CDT) Hep B S Ab <8.0 <8.0 mIU/mL [facility] Specimen Blood Performing Organization Address [facility] Phone Number [address] [address] [phone] [place] Hepatitis B surface antigen (12/11/2018 3:39 AM CDT) hepatitis B Surface Ag Nonreactive Nonreactive [facility] Specimen Blood Performing Organization Address [facility] Phone Number [address] [address] [place] T4, free (12/11/2018 3:39 AM CDT) Free T4 0.98 0.70 - 1.48 ng/dL [facility] Specimen Blood Performing Organization Address [facility] Phone Number [address] [address] [place] Lipid panel (12/11/2018 3:39 AM CDT) Triglycerides 71 mg/dL [facility] Cholesterol 105 mg/dL [facility] HDL 27 mg/dL [facility] LDL Calculated 64 mg/dL [facility] Specimen Blood Narrative Performed At Triglyceride Reference Range: [facility] Low Risk <150 [id number] High Risk 200-499 Very High Risk>=500 Cholesterol Reference Range: Low Risk <200 [id number] High Risk>240 HDL Cholesterol Reference Range: Low Risk >=60 High Risk <40 LDL Cholesterol Reference Range: Optimal<100 Near [id number] Very High >=190 Specimen slightly icteric Performing Organization Address [facility] Phone Number [place] [phone] [place] [address] brain without IV contrast (12/11/2018 3:18 AM CDT) Specimen Narrative Performed At FINAL REPORT [facility] CLINICAL HISTORY: Stroke COMPARISON: None Multiple axial images of the brain were performed without IV contrast. This exam was performed according to our departmental dose-optimization program, which includes automated exposure control, adjustment of the mA and/or kV according to patient size and/or use of the iterative reconstruction technique. Intracranial hemorrhage: None. Brain parenchyma: No CT evidence of acute ischemia. Diffuse parenchymal volume loss. Scattered subcortical and periventricular non-specific white matter hypodensities suggestive of microangiopathy. Ventricles, sulci and basal cisterns: Normal for age. Extra-axial spaces: Normal. Midline shift: None. Visualized vasculature: Atherosclerotic calcifications. Cranium: No significant findings. Skullbase: No significant findings. Paranasal sinuses: No significant findings. IMPRESSION: No definite acute intracranial abnormality. There is no mass lesion, intracranial hemorrhage or CT evidence of acute stroke. Microvascular and involutional changes. Please note that CT is insensitive in the detection of acute ischemia. MRI can be obtained, if clinically indicated. Signed: Michael José MD Report Verified Date/Time:12/11/2018 03:32:31 Reading Location: [address] Reading Room Procedure Note Interface, External Ris In - 12/11/2018 3:34 AM CDT FINAL REPORT CLINICAL HISTORY: Stroke COMPARISON: None Multiple axial images of the brain were performed without IV contrast. This exam was performed according to our departmental dose-optimization program, which includes automated exposure control, adjustment of the mA and/or kV according to patient size and/or use of the iterative reconstruction technique. Intracranial hemorrhage: None. Brain parenchyma: No CT evidence of acute ischemia. Diffuse parenchymal volume loss. Scattered subcortical and periventricular non-specific white matter hypodensities suggestive of microangiopathy. Ventricles, sulci and basal cisterns: Normal for age. Extra-axial spaces: Normal. Midline shift: None. Visualized vasculature: Atherosclerotic calcifications. Cranium: No significant findings. Skullbase: No significant findings. Paranasal sinuses: No significant findings. IMPRESSION: No definite acute intracranial abnormality. There is no mass lesion, intracranial hemorrhage or CT evidence of acute stroke. Microvascular and involutional changes. Please note that CT is insensitive in the detection of acute ischemia. MRI can be obtained, if clinically indicated. Signed: Michael José MD Report Verified Date/Time: 12/11/2018 03:32:31 Reading Location: [address] Reading Room Performing Organization Address City/State/[facility] Phone Number [facility] Troponin I (12/11/2018 1:37 AM CDT)Only the most recent of3 resultswithin the time period is included. Troponin I 0.27 (HH) 0.00 - 0.03 ng/mL [facility] Specimen Blood Narrative Performed At Troponin I (TnI) levels must be interpreted [facility] in the context of the presenting symptoms and the clinical findings. Elevated TnI levels indicate myocardial damage, but are not specific for ischemic heart disease. Elevated TnI levels are seen in patients with other cardiac conditions (including myocarditis and congestive heart failure), and slight TnI elevations occur in patients with other conditions, including sepsis, renal failure, acidosis, acute neurological disease, and persistent tachyarrhythmia. Performing Organization Address [facility] Phone Number [address] [address] [phone] [place] Hepatitis C antibody (12/10/2018 4:38 PM CDT) Hepatitis C Ab Reactive (A) Nonreactive [facility] Specimen Blood Performing Organization Address [facility]/Zipcode Phone Number [address] [address] CENTER Hepatitis A antibody, IgM (12/10/2018 4:38 PM CDT) Hep A IgM Nonreactive Nonreactive [facility] Specimen Blood Performing Organization Address [facility] Phone Number [address] [address] [place] Hepatitis C PCR, Quantitative (12/10/2018 4:38 PM CDT) HCV PCR, Quantitative 276,000 (H) <15 IU/mL [facility] Specimen Blood Narrative Performed At This test uses a Real-Time Polymerase Chain [facility] Reaction (RT-PCR) methodology and was performed using [employer] Amplip[employer]/MARILEE TaqMan HCV test kit version 2.0 ([employer]). Reportable range for this assay is 15 - 100,000,000 IU per mL (1.18 - 8.00 Log IU/mL). Performing Organization Address City/State/Zipcode Phone Number [address] [address] [place] NM hepatobiliary (HIDA) scan (12/10/2018 2:33 PM CDT) Specimen Narrative Performed At FINAL REPORT [employer] PROCEDURE: HEPATOBILIARY SCAN CPT CODE: [id number] INDICATION: Cholelithiasis, acute encephalopathy PROTOCOL: 5.4 mCi of Tc-99m mebrofenin was injected intravenously. Images of the upper abdomen were obtained for approximately 70 minutes after tracer injection. FINDINGS:Initial tracer uptake into the liver is physiological. Subsequent tracer clearance from the liver proceeds normally. There is good visualization of the extrahepatic biliary duct and the gallbladder, and the tracer appears appropriately in the small bowel. Of note, the liver morphology is abnormal, with left hepatic lobe hypertrophy and decreased in size of the right lobe. IMPRESSION:Normal hepatobiliary scan with findings consistent with hepatocellular disease. Signed: Daryn Weldon MD Report Verified Date/Time:12/10/2018 15:02:05 Reading Location: [address] Reading Room Procedure Note Interface, External Ris In - 12/10/2018 3:04 PM CDT FINAL REPORT PROCEDURE: HEPATOBILIARY SCAN CPT CODE: [id number] INDICATION: Cholelithiasis, acute encephalopathy PROTOCOL: 5.4 mCi of Tc-99m mebrofenin was injected intravenously. Images of the upper abdomen were obtained for approximately 70 minutes after tracer injection. FINDINGS: Initial tracer uptake into the liver is physiological. Subsequent tracer clearance from the liver proceeds normally. There is good visualization of the extrahepatic biliary duct and the gallbladder, and the tracer appears appropriately in the small bowel. Of note, the liver morphology is abnormal, with left hepatic lobe hypertrophy and decreased in size of the right lobe. IMPRESSION: Normal hepatobiliary scan with findings consistent with hepatocellular disease. Signed: Daryn Weldon MD Report Verified Date/Time: 12/10/2018 15:02:05 Reading Location: [address] Reading Room Performing Organization Address City/State/Zipcode Phone Number [facility] Lactic acid, venous (12/10/2018 12:01 PM CDT)Only the most recent of3 resultswithin the time period is included. Lactate, Venous 2.3 (H) 0.5 - 2.2 mmol/L [facility] Specimen Blood Performing Organization Address City/[facility] Phone Number [facility] [address] [place] [address] CENTER ECG 12 lead (12/10/2018 10:50 AM CDT)Only the most recent of2 resultswithin the time period is included. Specimen Narrative Performed At Ventricular Rate 70 BPM GE MUSE Atrial Rate 70 BPM P-R Interval 138 ms QRS Duration 94 ms Q-T Interval 492 ms QTC Calculation(Bazett) 531 ms P [place] 13 degrees R [place] -35 degrees T [place] -16 degrees Normal sinus rhythm Left axis deviation Minimal voltage criteria for LVH, may be normal variant T wave inversion anterior and inferior leads consider postischemic changes Prolonged QT Abnormal ECG When compared with ECG of 10-DEC-2018 08:38, T wave inversion now evident in Anterior leads T wave amplitude decreased in V4-V6 Confirmed by MD ANSELMO, LENA ([id number]) on 12/11/2018 1:21:55 PM Procedure Note Interface, External Ris In - 12/11/2018 1:22 PM CDT Ventricular Rate 70 BPM Atrial Rate 70 BPM P-R Interval 138 ms QRS Duration 94 ms Q-T Interval 492 ms QTC Calculation(Bazett) 531 ms P [place] 13 degrees R [place] -35 degrees T [place] -16 degrees Normal sinus rhythm Left axis deviation Minimal voltage criteria for LVH, may be normal variant T wave inversion anterior and inferior leads consider postischemic changes Prolonged QT Abnormal ECG When compared with ECG of 10-DEC-2018 08:38, T wave inversion now evident in Anterior leads T wave amplitude decreased in V4-V6 Confirmed by MD ANSELMO, LENA ([id number]) on 12/11/2018 1:21:55 PM Performing Organization Address [facility] Phone Number [facility] Blood Culture - Routine (Left Venipuncture) (12/10/2018 8:14 AM CDT)Only the most recent of2 resultswithin the time period is included. Result No growth in 5 days [facility] Specimen Blood Performing Organization Address [facility] Phone Number [address] [address] CENTER Urinalysis Microscopic Only (12/10/2018 7:53 AM CDT) RBC, UA 31 /HPF [facility] WBC, UA 2 /HPF [facility] Bacteria, UA Occasional [facility] Mucus Occasional [facility] Hyaline Casts, UA 2 /LPF [facility] Specimen Urine Performing Organization Address [facility] Phone Number [address] [address] [phone] CENTER Urinalysis with Microscopic If Indicated (12/10/2018 7:53 AM CDT) Color, UA Yellow [facility] Clarity, UA Clear [facility] Specific [place], UA 1.008 1.001 - 1.035 [facility] pH, UA 8.0 5.0 - 8.0 [facility] Protein, UA 100 mg/dL (A) Negative [facility] Glucose, UA Negative Negative [facility] Ketones, UA Negative Negative [facility] Bilirubin, UA Negative Negative [facility] Blood, UA Moderate (A) Negative [facility] Nitrite, UA Negative Negative [facility] Leukocytes, UA Negative Negative [facility] Urobilinogen, UA 0.2 0.2 - 1.0 mg/dL [facility] Specimen Source [facility] Specimen Urine Performing Organization Address [facility] Phone Number [address] [address] [phone] [place] Procalcitonin (12/10/2018 5:05 AM CDT) Procalcitonin 0.11 (H) <0.05 ng/mL [facility] Specimen Blood Narrative Performed At SEPSIS RISK (ng/mL) [facility] Low:0.05-0.50 Intermediate: 0.51-2.00 High: >=2.01 Performing Organization Address [facility] Phone Number [address] [address] [phone] [place] Prothrombin time/INR (12/10/2018 5:05 AM CDT) Protime 18.4 (H) 11.7 - 14.7 seconds [facility] INR 1.5 <=5.9 [facility] Specimen Blood Narrative Performed At RECOMMENDED COUMADIN/WARFARIN INR THERAPY [facility] RANGES STANDARD DOSE: 2.0 - 3.0 Includes: PROPHYLAXIS for venous thrombosis, systemic embolization; TREATMENT for venous thrombosis and/or pulmonary embolus. HIGH RISK: Target INR is 2.5-3.5 for patients with mechanical heart valves. Performing Organization Address City/[facility] Phone Number [address] [address] [place] after 03/29/2018 Insurance Payer Benefit Plan / Subscriber ID Type Phone Address Group MEDICAID - MEDICAID [employer] xxxxxxxxx Medicaid Contracted MGD CARE PLAN Advance Directives For more information, please contact:[address] [phone] Code Status Date Activated Date Inactivated Comments Full Code 12/10/2018 4:21 AM 12/13/2018 8:16 PM This code status was determined by: Patient
--- OUTSIDE RECORDS SUMMARY | 2019-03-30 13:31 | XMS REPORT ---
[...] Dosage System Date Date Zyrtec Allergy ND 40435819570 10 MG Orally Active 1 tablet Once a day Tradjenta ND 07208760881 5 MG Orally Active 1 tablet Once a day Tylenol # 3 NDC 0 30-500-15 MG Inactive 2 tablets Orally every 6 as needed hrs blood glucose NDC 0 n/s once a day December Active one test strip 2017 Cialis ND 91512980144 20 MG Orally Sep 28, Active 1 tablet once a day prn 2019 erectile dysfunction Gabapentin ND 80508193310 600MG Active TAKE TWO TABLETS BY MOUTH THREE TIMES DAILY Lancets Super NDC 0 n/s finger December Active one Thin stick once 2017 Hyzaar ND 36185946691 50-12.5 MG Active 1 tablet Orally Once a day Ferrous ND 16001897192 325 (65 Fe) MG Active 1 tablet Sulfate Orally Once a day [place] [facility] 04756752661 7.5-325 MG Active 1 tablet as Orally every 6 needed hrs Glucometer ND 0 n/s use as December Active not defined directed to 2017 08, check blood 2018 glucose twice a day Alcohol Prep ND 0 twice a day December Active as directed Pads 2017 Flonase [facility] 97732545347 50 MCG/ACT Active 1 spray in Nasally Once a each day nostril Singulair [facility] 56224661640 10 MG Orally Active 1 tablet in Once a day the evening Viagra [facility] 70560330071 100 MG Orally Inactive 1 tablet as Once a day needed Results No Known Results Summary Purpose eClinicalWorks Submission
--- OUTSIDE RECORDS SUMMARY | 2019-03-30 13:32 | XMS REPORT ---
:1955 [facility] [place] [address] Care Team Providers Name Role Phone SHALOM PENA Unavailable Unavailable Problems This patient has no known problems. Allergies, Adverse Reactions, Alerts This patient has no known allergies or adverse reactions. Medications This patient has no known medications. Results Test Description Test Time Test Comments Text Results Atomic Results Result Comments ANTI-MITOCHONDRIAL AB, REFLEX TO TITER 2018-12-17 13:38:00 Test Item Value Reference Range Comments SCAN RESULT (test ynmi=[id number]) BLOOD [id number] 12:01:00 Test Item Value Reference Range Comments CULTURE (BEAKER) (test nril=9362) No growth in 5 days BLOOD [id number] 12:01:00 Test Item Value Reference Range Comments CULTURE (BEAKER) (test dumj=2345) No growth in 5 days [place] TITER AND [id number] 10:33:00 Test Item Value Reference Range Comments K[place]NA TITER (BEAKER) (test zrxu=7173) :160 [place] PATTERN (BEAKER) (test kqcz=5315) Nucleolar HEPATITIS C PCR, [id number] 20:13:00 Test Item Value Reference Range Comments HCV NUMERIC RESULT (BEAKER) (test gsgk=5323) 292529 IU/mL <15 This test uses a Real-Time Polymerase Chain Reaction (RT-PCR) methodology and was performed using MARILEE Ampliprep/MARILEE TaqMan HCV test kit version 2.0 ( [employer]aterine [employer]).Reportable range for this assay is 15 - 100,000, 000 IU per mL (1.18 - 8.00 Log IU/mL).POCT-GLUCOSE [id number] 13:03:00 Test Item Value Reference Range Comments POC-GLUCOSE METER (BEAKER) 266 mg/dL 70-110 TESTED AT [address] (test fgns=5941) [facility] [address] URINALYSIS WITHOUT [id number] 12:46:00 Test Item Value Reference Range Comments COLOR (BEAKER) (test mtak=833) Yellow CLARITY (BEAKER) (test pbzh=116) Clear SPECIFIC GRAVITY UA (BEAKER) (test fkle=704) 1.014 1.001-1.035 PH UA (BEAKER) (test jcxx=549) 6.5 5.0-8.0 PROTEIN UA (BEAKER) (test nstg=657) 70 mg/dL Negative GLUCOSE UA (BEAKER) (test loah=435) Negative Negative KETONES UA (BEAKER) (test dkxx=985) 10 mg/dL Negative BILIRUBIN UA (BEAKER) (test khgy=320) Negative Negative BLOOD UA (BEAKER) (test cjlk=481) Small Negative NITRITE UA (BEAKER) (test puqy=256) Negative Negative LEUKOCYTE ESTERASE UA (BEAKER) (test hpdx=377) Negative Negative UROBILINOGEN UA (BEAKER) (test vtnf=350) 0.2 mg/dL 0.2-1.0 SOURCE(BEAKER) (test crkc=8098) SODIUM, RANDOM [id number] 12:32:00 Test Item Value Reference Range Comments SODIUM URINE (BEAKER) (test kdyj=073) < meq/L Reference Range: No NormalsCHLORIDE, RANDOM [id number] 12:26:00 Test Item Value Reference Range Comments CHLORIDE URINE (BEAKER) (test upnr=829) 20 meq/L Reference Range: No NormalsCREATININE, RANDOM [id number] 12:26:00 Test Item Value Reference Range Comments CREATININE URINE (BEAKER) (test ztpp=448) 113.0 mg/dL Reference Range: No NormalsPOTASSIUM, RANDOM [id number] 12:26:00 Test Item Value Reference Range Comments POTASSIUM URINE (BEAKER) (test pyfy=306) 44.9 meq/L Reference Range: No NormalsPOCT-GLUCOSE [id number] 08:49:00 Test Item Value Reference Range Comments POC-GLUCOSE METER (BEAKER) 103 mg/dL 70-110 TESTED AT [address] (test jmqh=8770) [facility] [address] VITAMIN D, [id number] 06:37:00 Test Item Value Reference Range Comments VITAMIN D 25-OH (BEAKER) (test pqzj=7994) 9.9 ng/mL 6.6-49.9 Effective 07/05/2017: Reference Range ChangeNew: 6.6-49.9 ng/mL Previous: 13.0 -47.8 ng/mLRecommended Vitamin D Target Range: 30.0-40.0 ng/mLCOMPREHENSIVE METABOLIC [id number] 06:15:00 Test Item Value Reference Range Comments TOTAL PROTEIN (BEAKER) 5.9 gm/dL 6.0-8.3 (test xwne=170) ALBUMIN (BEAKER) (test 2.3 g/dL 3.5-5.0 pukw=5506) ALKALINE PHOSPHATASE 127 U/L 40-150 (BEAKER) (test knxv=690) BILIRUBIN TOTAL (BEAKER) 1.2 mg/dL 0.2-1.2 (test prik=927) SODIUM (BEAKER) (test 139 meq/L 136-145 ivam=805) POTASSIUM (BEAKER) (test 3.5 meq/L 3.5-5.1 qxbb=562) CHLORIDE (BEAKER) (test 117 meq/L 98-107 vkmb=632) CO2 (BEAKER) (test 16 meq/L 22-29 vfit=454) BLOOD UREA NITROGEN 21 mg/dL 7-21 (BEAKER) (test duuv=096) CREATININE (BEAKER) (test 1.11 mg/dL 0.57-1.25 nlnz=543) GLUCOSE RANDOM (BEAKER) 97 mg/dL 70-105 (test fktt=422) CALCIUM (BEAKER) (test 7.8 mg/dL 8.4-10.2 knaz=934) AST (SGOT) (BEAKER) (test 117 U/L 5-34 wieh=013) ALT (SGPT) (BEAKER) (test 51 U/L 6-55 aagg=348) EGFR (BEAKER) (test 67 mL/min/1.73 sq m ESTIMATED GFR IS NOT kpxq=9133) ACCURATE CREATININE CLEARANCE IN PREDICTING GLOMERULAR FILTRATION RATE. ESTIMATED GFR IS NOT APPLICABLE FOR DIALYSIS PATIENTS. [id number] 06:14:00 Test Item Value Reference Range Comments PHOSPHORUS (BEAKER) (test xqmd=042) 2.1 mg/dL 2.3-4.7 [id number] 06:14:00 Test Item Value Reference Range Comments MAGNESIUM (BEAKER) (test zbft=010) 1.6 mg/dL 1.6-2.6 [id number] 06:05:00 Test Item Value Reference Range Comments PROTIME (BEAKER) (test pnhg=009) 18.7 seconds 11.7-14.7 INR (BEAKER) (test hzwl=959) 1.5 <=5.9 PARTIAL THROMBOPLASTIN TIME (BEAKER) (test 76.7 seconds 22.5-36.0 nsbu=263) RECOMMENDED COUMADIN/WARFARIN INR THERAPY RANGESSTANDARD DOSE: 2.0 - 3.0 Includes: PROPHYLAXIS forvenous thrombosis, systemic embolization; TREATMENT for venous thrombosis and/or pulmonary embolus.HIGH RISK: Target INR is 2.5-3.5 for patients with mechanical heart valves.CBC W/PLT COUNT & AUTO [id number] 05:47:00 Test Item Value Reference Range Comments WHITE BLOOD CELL COUNT (BEAKER) (test myvb=863) 7.3 K/ L 3.5-10.5 RED BLOOD CELL COUNT (BEAKER) (test fqpj=506) 3.08 M/ L 4.63-6.08 HEMOGLOBIN (BEAKER) (test jmdq=172) 10.5 GM/DL 13.7-17.5 HEMATOCRIT (BEAKER) (test grpd=323) 31.1 % 40.1-51.0 MEAN CORPUSCULAR VOLUME (BEAKER) (test swwy=242) 101.0 fL 79.0-92.2 MEAN CORPUSCULAR HEMOGLOBIN (BEAKER) (test 34.1 pg 25.7-32.2 owbo=207) MEAN CORPUSCULAR HEMOGLOBIN CONC (BEAKER) (test 33.8 GM/DL 32.3-36.5 zbpf=797) RED CELL DISTRIBUTION WIDTH (BEAKER) (test 20.1 % 11.6-14.4 mgxv=395) PLATELET COUNT (BEAKER) (test rswr=140) 86 K/CU MM 150-450 MEAN PLATELET VOLUME (BEAKER) (test vxyu=823) 11.7 fL 9.4-12.4 NUCLEATED RED BLOOD CELLS (BEAKER) (test 0 /100 WBC 0-0 ogtx=054) NEUTROPHILS RELATIVE PERCENT (BEAKER) (test 56 % pfat=033) LYMPHOCYTES RELATIVE PERCENT (BEAKER) (test 31 % rkld=334) MONOCYTES RELATIVE PERCENT (BEAKER) (test 11 % ttqk=481) EOSINOPHILS RELATIVE PERCENT (BEAKER) (test 2 % hdop=425) BASOPHILS RELATIVE PERCENT (BEAKER) (test 0 % sybc=008) NEUTROPHILS ABSOLUTE COUNT (BEAKER) (test 4.06 K/ L 1.78-5.38 uecl=234) LYMPHOCYTES ABSOLUTE COUNT (BEAKER) (test 2.26 K/ L 1.32-3.57 vxnn=620) MONOCYTES ABSOLUTE COUNT (BEAKER) (test ldeb=680) 0.77 K/ L 0.30-0.82 EOSINOPHILS ABSOLUTE COUNT (BEAKER) (test 0.17 K/ L 0.04-0.54 olkc=901) BASOPHILS ABSOLUTE COUNT (BEAKER) (test yibx=935) 0.03 K/ L 0.01-0.08 IMMATURE GRANULOCYTES-RELATIVE PERCENT (BEAKER) 1 % 0-1 (test ivaj=9128) POCT-GLUCOSE [id number] 21:05:00 Test Item Value Reference Range Comments POC-GLUCOSE METER (BEAKER) 206 mg/dL 70-110 TESTED AT [address] (test fexy=5097) [place] [address] POCT-GLUCOSE [id number] 18:48:00 Test Item Value Reference Range Comments POC-GLUCOSE METER (BEAKER) 139 mg/dL 70-110 TESTED AT [address] (test xvpb=4656) [place] [address] [id number] 14:28:00 Test Item Value Reference Range Comments RPR SCREEN (BEAKER) (test rmtq=929) Nonreactive Nonreactive HEMOGLOBIN [id number] 13:35:00 Test Item Value Reference Range Comments HEMOGLOBIN A1C (BEAKER) (test olgw=583) 5.1 % 4.3-6.1 POCT-GLUCOSE [id number] 12:15:00 Test Item Value Reference Range Comments POC-GLUCOSE METER (BEAKER) 223 mg/dL 70-110 TESTED AT [address] (test orwm=3625) [place] [address] MR, EXTREMITY, UPPER, WITHOUT CONTRAST, [id number] 11:15:00Reason for exam: ->ulceration on 1st MTP right hand. MRI right handFINAL REPORT Indication: ulceration on 1st MTP right hand. MRI right hand TECHNIQUE : Multiplanar multisequence MRI examination of the right hand was performed without intravenouscontrast. COMPARISON: None FINDINGS: There is diffuse subcutaneous edema throughout the right hand without fluid collection or hematoma. There is no fracture or traumatic malalignment. There is no bonyerosion or destruction. There is no significant bone marrow edema. There is no significant joint effusion. There is mild edema-like signal in the muscles of the right hand and wrist. There is no evidence of fasciitis. The tendons and muscles are intact. IMPRESSION:1. Diffuse subcutaneous edema withoutfluid collection or hematoma. No MR evidence of osteomyelitis or septic arthritis. Signed: More Hidalgo Verified Date/Time: 12/12/2018 11:15:34 Reading Location: [address] Ortho Consult Reading Room VANCOMYCIN LEVEL, [id number] 10: 18:00 Test Item Value Reference Range Comments VANCOMYCIN TROUGH (BEAKER) (test dqmw=100) 18.1 ug/mL 10.0-20.0 Please draw 30 minutes before 4th doseANTI-NUCLEAR ANTIBODY (KALPANA)2018-12-12 09: 40:00 Test Item Value Reference Range Comments ANTI-NUCLEAR ANTIBODY (KALPANA) (BEAKER) (test Positive Negative okwp=248) Test performed by IFA method.POCT-GLUCOSE [id number] 08:14:00 Test Item Value Reference Range Comments POC-GLUCOSE METER (BEAKER) 116 mg/dL 70-[address] [facility] [address] [facility] (test bfbv=2915) [facility] [address] [id number] 07:20:00 Test Item Value Reference Range Comments MAGNESIUM (BEAKER) (test likv=219) 2.0 mg/dL 1.6-2.6 CBC W/PLT COUNT & AUTO [id number] 06:37:00 Test Item Value Reference Range Comments WHITE BLOOD CELL COUNT (BEAKER) (test aboy=618) 8.2 K/ L 3.5-10.5 RED BLOOD CELL COUNT (BEAKER) (test scti=133) 3.04 M/ L 4.63-6.08 HEMOGLOBIN (BEAKER) (test fuxp=415) 10.4 GM/DL 13.7-17.5 HEMATOCRIT (BEAKER) (test wdmd=760) 30.2 % 40.1-51.0 MEAN CORPUSCULAR VOLUME (BEAKER) (test jbaq=924) 99.3 fL 79.0-92.2 MEAN CORPUSCULAR HEMOGLOBIN (BEAKER) (test 34.2 pg 25.7-32.2 koeh=335) MEAN CORPUSCULAR HEMOGLOBIN CONC (BEAKER) (test 34.4 GM/DL 32.3-36.5 rkyj=629) RED CELL DISTRIBUTION WIDTH (BEAKER) (test 20.1 % 11.6-14.4 szsm=325) PLATELET COUNT (BEAKER) (test xewi=881) 88 K/CU MM 150-450 MEAN PLATELET VOLUME (BEAKER) (test ytbf=003) 11.7 fL 9.4-12.4 NUCLEATED RED BLOOD CELLS (BEAKER) (test 0 /100 WBC 0-0 jqtw=203) NEUTROPHILS RELATIVE PERCENT (BEAKER) (test 64 % gyfp=647) LYMPHOCYTES RELATIVE PERCENT (BEAKER) (test 23 % gepj=285) MONOCYTES RELATIVE PERCENT (BEAKER) (test 11 % gpnx=956) EOSINOPHILS RELATIVE PERCENT (BEAKER) (test 1 % smyf=488) BASOPHILS RELATIVE PERCENT (BEAKER) (test 0 % laid=697) NEUTROPHILS ABSOLUTE COUNT (BEAKER) (test 5.26 K/ L 1.78-5.38 bdvc=986) LYMPHOCYTES ABSOLUTE COUNT (BEAKER) (test 1.86 K/ L 1.32-3.57 hkgu=432) MONOCYTES ABSOLUTE COUNT (BEAKER) (test ypmm=230) 0.93 K/ L 0.30-0.82 EOSINOPHILS ABSOLUTE COUNT (BEAKER) (test 0.10 K/ L 0.04-0.54 xnjq=790) BASOPHILS ABSOLUTE COUNT (BEAKER) (test yxeg=006) 0.02 K/ L 0.01-0.08 IMMATURE GRANULOCYTES-RELATIVE PERCENT (BEAKER) 0 % 0-1 (test vrcv=1243) [id number] 06:35:00 Test Item Value Reference Range Comments PHOSPHORUS (BEAKER) (test zysg=617) 1.9 mg/dL 2.3-4.7 HEPATIC FUNCTION [id number] 06:35:00 Test Item Value Reference Range Comments TOTAL PROTEIN (BEAKER) (test oakj=732) 6.0 gm/dL 6.0-8.3 ALBUMIN (BEAKER) (test thyx=7186) 2.4 g/dL 3.5-5.0 BILIRUBIN TOTAL (BEAKER) (test ncbe=518) 1.4 mg/dL 0.2-1.2 BILIRUBIN DIRECT (BEAKER) (test cytl=661) 0.8 mg/dL 0.1-0.5 ALKALINE PHOSPHATASE (BEAKER) (test eqdb=587) 115 U/L 40-150 AST (SGOT) (BEAKER) (test xizs=612) 118 U/L 5-34 ALT (SGPT) (BEAKER) (test sdxe=106) 47 U/L 6-55 COMPREHENSIVE METABOLIC [id number] 06:35:00 Test Item Value Reference Range Comments TOTAL PROTEIN (BEAKER) 6.0 gm/dL 6.0-8.3 (test cxtf=569) ALBUMIN (BEAKER) (test 2.4 g/dL 3.5-5.0 stjb=4135) ALKALINE PHOSPHATASE 115 U/L 40-150 (BEAKER) (test ilwv=640) BILIRUBIN TOTAL (BEAKER) 1.4 mg/dL 0.2-1.2 (test yeqd=520) SODIUM (BEAKER) (test 137 meq/L 136-145 prcr=501) POTASSIUM (BEAKER) (test 3.2 meq/L 3.5-5.1 xzcq=849) CHLORIDE (BEAKER) (test 113 meq/L 98-107 zfor=953) CO2 (BEAKER) (test 21 meq/L 22-29 mynr=562) BLOOD UREA NITROGEN 19 mg/dL 7-21 (BEAKER) (test oskt=236) CREATININE (BEAKER) (test 1.00 mg/dL 0.57-1.25 ucea=477) GLUCOSE RANDOM (BEAKER) 117 mg/dL 70-105 (test opvz=947) CALCIUM (BEAKER) (test 8.0 mg/dL 8.4-10.2 gmkj=241) AST (SGOT) (BEAKER) (test 118 U/L 5-34 fqyj=955) ALT (SGPT) (BEAKER) (test 47 U/L 6-55 latp=840) EGFR (BEAKER) (test 76 mL/min/1.73 sq m ESTIMATED GFR IS NOT tctd=4731) ACCURATE CREATININE CLEARANCE IN PREDICTING GLOMERULAR FILTRATION RATE. ESTIMATED GFR IS NOT APPLICABLE FOR DIALYSIS PATIENTS. VITAMIN B12 AND [id number] 06:15:00 Test Item Value Reference Range Comments VITAMIN B12 (BEAKER) (test secu=888) > pg/mL 213-816 FOLATE (BEAKER) (test kbwq=093) 13.2 ng/mL >=7.0 ACETAMINOPHEN [id number] 05:54:00 Test Item Value Reference Range Comments ACETAMINOPHEN LEVEL (BEAKER) < ug/mL 10.0-30.0 Specimen moderately hemolyzed (test egra=589) Therapeutic Range: 10.0-30.0 g/mLToxic Levels: >200.0 g/mLSALICYLATE [id number] 05:54:00 Test Item Value Reference Range Comments SALICYLATE LEVEL (BEAKER) (test lxzw=053) < mg/dL 15.0-30.0 Therapeutic Range: 15.0-30.0 mg/dLToxic: >30.0 mg/dL Lethal: >70.0 mg/dLPT/[id number] 05:34:00 Test Item Value Reference Range Comments PROTIME (BEAKER) (test lmon=406) 18.4 seconds 11.7-14.7 INR (BEAKER) (test jbou=090) 1.5 <=5.9 PARTIAL THROMBOPLASTIN TIME (BEAKER) (test 43.1 seconds 22.5-36.0 cpso=468) RECOMMENDED COUMADIN/WARFARIN INR THERAPY RANGESSTANDARD DOSE: 2.0 - 3.0 Includes: PROPHYLAXIS forvenous thrombosis, systemic embolization; TREATMENT for venous thrombosis and/or pulmonary embolus.HIGH RISK: Target INR is 2.5-3.5 for patients with mechanical heart valves.U/S, ABDOMINAL, [id number] 04: 29:00Reason for exam:->eval liver for cirrhosis, cbd size, gb wall thickeningFINAL REPORT INDICATION: eval liver for cirrhosis, cbd size, gb wall thickening COMPARISON: None. TECHNIQUE: Real-time transabdominal christensen scale and color Doppler ultrasound of the abdomen. FINDINGS :Liver: Size: 10.6cm. Echogenicity: Coarsened hepatic echogenicity Masses/lesions: None. Surface Nodularity: Present. Intrahepatic bile ducts: Normal. Common bile duct: 0.6 cm. MPV: 1.4cm. Gallbladder: Stones: 9 mm stone in the gallbladder neck. Sludge: None. Wall thickness: 0.5 cm. The gallbladder lumen is nondistended. Pericholecystic fluid: None. Sonographic Zimmerman's sign: No sonographic Zimmerman's sign. Pancreas: Head anduncinate process: Unremarkable. Body and tail: Not well-seen. Spleen : Size: 14.3cm. Echogenicity: Unremarkable. Right kidney: Size: [...] midportion 1.8 cm distally. Additional findings: None. IMPRESSION : Morphologic changes of cirrhosis with sequela of portal hypertension including splenomegaly and moderate volume intra-abdominal ascites. Cholelithiasis. Gallbladder wall thickening is nonspecific in the setting of cirrhosis and under distention of the gallbladder lumen. Right renal cyst and possible nonobstructing nephrolithiasis. Signed: Vi Whitmanort Verified Date/Time: 12/12/2018 04:29:04 Reading Location: [facility] C013T Transitional Reading Room POCT-GLUCOSE [id number] 21:05:00 Test Item Value Reference Range Comments POC-GLUCOSE METER (BEAKER) 135 mg/dL 70-[address] [facility] [address] [facility] (test lsnk=4534) [facility] [address] POCT-GLUCOSE [id number] 16:47:00 Test Item Value Reference Range Comments POC-GLUCOSE METER (BEAKER) 161 mg/dL 70-[address] [facility] [address] [facility] (test sklu=9366) [facility] [address] [facility], MULTI, PHARM, [id number] 16:37:00FINAL REPORT PROCEDURE: MYOCARDIAL PERFUSION SPECT IMAGING (Rest/Stress)CPT CODE : 12395 INDICATION: Chest pain, suspected acute coronary syndrome CARDIOVASCULAR PROFILE:CAD History: NoneSymptoms: Chest painRisk Factors: Diabetes, hypertensionBMI: 23.7Medications: Aspirin, amlodipine, atorvastatin, metoprolol STRESS PROTOCOL:Pharmacologic stress was achieved with a 10-second intravenous infusion of regadenoson 0.4 mg. Per protocol, "peak stress" is defined as occurring 30 seconds after the start of the regadenoson infusion. IMAGING PROTOCOL:10.8 mCi of Tc-99m sestamibi was injected intravenously at rest , and gated SPECT images were obtained. Then, 30.7 mCi of Tc-99m sestamibiwas injected intravenously at peak stress, and gated SPECT images were obtained. REST FINDINGS:HR: 61/minBP: 156/83 mmHgPrelim. EKG: Normal sinus rhythm.Perfusion: There is moderate decrease in activity in the apical inferior segment(s).Wall Motion: Normal (LVEF 59%).LV Volume: Normal.RV Volume: Normal. STRESS FINDINGS:HR: 62/min (38% of MPHR)BP: 157/82 mmHgPrelim. EKG: No ischemic changes.Symptoms: None (treatment not required).Perfusion: Not significantly changed from rest.Wall Motion: Normal (LVEF 65%).LV Volume: Not significantly changed from rest. IMPRESSION:1. Normal study.2. Normal myocardial perfusion. Inferoapical fixed defect is consistent with attenuation artifact.3. Normal global LVEF,which does not deteriorate with stress.4. Normal extracardiac tracer distribution.5. There is no prior study for comparison. Signed: Mariela Arauzeport Verified Date/Time: 12/11/2018 16:37:32 Reading Location: [facility] 3rd Flr P327B [facility] Reading Room HIV-1 ANTIGEN WITH HIV-1/2 [id number] 12 :58:00 Test Item Value Reference Range Comments HIV-1 ANTIGEN WITH HIV 1\\T\\2 ANTIBODY (2) Nonreactive Nonreactive (BEAKER) (test mgrc=8539) PT/[id number] 12:41:00 Test Item Value Reference Range Comments PROTIME (BEAKER) (test ldbt=088) 17.9 seconds 11.7-14.7 INR (BEAKER) (test ohbz=994) 1.4 <=5.9 PARTIAL THROMBOPLASTIN TIME (BEAKER) (test 50.9 seconds 22.5-36.0 ynrm=872) RECOMMENDED COUMADIN/WARFARIN INR THERAPY RANGESSTANDARD DOSE: 2.0 - 3.0 Includes: PROPHYLAXIS forvenous thrombosis, systemic embolization; TREATMENT for venous thrombosis and/or pulmonary embolus.HIGH RISK: Target INR is 2.5-3.5 for patients with mechanical heart valves.[id number]-9-[id number] 12:37:00 Test Item Value Reference Range Comments ALPHA-1 ANTITRYPSIN (BEAKER) (test axch=275) 196.00 mg/dL 90.00-200.00 BASIC METABOLIC [id number] 11:40:00 Test Item Value Reference Range Comments SODIUM (BEAKER) (test 141 meq/L 136-145 zywr=056) POTASSIUM (BEAKER) (test 3.5 meq/L 3.5-5.1 vohy=779) CHLORIDE (BEAKER) (test 113 meq/L 98-107 xixi=906) CO2 (BEAKER) (test 19 meq/L 22-29 kbnp=376) BLOOD UREA NITROGEN 11 mg/dL 7-21 (BEAKER) (test ujls=589) CREATININE (BEAKER) (test 1.03 mg/dL 0.57-1.25 vdwx=004) GLUCOSE RANDOM (BEAKER) 122 mg/dL 70-105 (test pfbv=124) CALCIUM (BEAKER) (test 8.1 mg/dL 8.4-10.2 gdfz=122) EGFR (BEAKER) (test 73 mL/min/1.73 sq m ESTIMATED GFR IS NOT qomf=0380) ACCURATE CREATININE CLEARANCE IN PREDICTING GLOMERULAR FILTRATION RATE. ESTIMATED GFR IS NOT APPLICABLE FOR DIALYSIS PATIENTS. Specimen slightly [id number] 09:31:00 Test Item Value Reference Range Comments MAGNESIUM (BEAKER) (test 2.5 mg/dL 1.6-2.6 Specimen markedly hemolyzed mvaq=146) BILIRUBIN, [id number] 09:31:00 Test Item Value Reference Range Comments BILIRUBIN DIRECT (BEAKER) (test 0.5 mg/dL 0.1-0.5 Specimen markedly hemolyzed ozpx=371) HEPATITIS A ANTIBODY, [id number] 08:57:00 Test Item Value Reference Range Comments HEPATITIS A IGG ANTIBODY (BEAKER) (test rnxs=9665) Reactive Nonreactive POCT-GLUCOSE [id number] 07:33:00 Test Item Value Reference Range Comments POC-GLUCOSE METER (BEAKER) 131 mg/dL 70-110 TESTED AT [address] (test cpbj=4270) [facility] [address] T4, [id number] 06:53:00 Test Item Value Reference Range Comments FREE T4 (BEAKER) (test ouza=357) 0.98 ng/dL 0.70-1.48 TSH/FREE T4 IF [id number] 05:01:00 Test Item Value Reference Range Comments THYROID STIMULATING HORMONE (BEAKER) (test 0.22 uIU/mL 0.35-4.94 zgsf=764) HEPATITIS B SURFACE [id number] 05:00:00 Test Item Value Reference Range Comments HEPATITIS B SURFACE ANTIBODY (BEAKER) (test < mIU/mL <8.0 cvjw=453) HEPATITIS B SURFACE [id number] 04:54:00 Test Item Value Reference Range Comments HEPATITIS B SURFACE ANTIGEN (2) (BEAKER) (test Nonreactive Nonreactive pctq=0996) HEPATITIS B CORE ANTIBODY, [id number] 04:54:00 Test Item Value Reference Range Comments HEPATITIS B CORE TOTAL ANTIBODY (BEAKER) (test Nonreactive Nonreactive rtvu=154) [id number] 04:37:00 Test Item Value Reference Range Comments PHOSPHORUS (BEAKER) (test bgse=070) 3.3 mg/dL 2.3-4.7 [id number] 04:37:00 Test Item Value Reference Range Comments MAGNESIUM (BEAKER) (test vhor=958) 1.7 mg/dL 1.6-2.6 COMPREHENSIVE METABOLIC [id number] 04:37:00 Test Item Value Reference Range Comments TOTAL PROTEIN (BEAKER) 6.2 gm/dL 6.0-8.3 (test xzyi=130) ALBUMIN (BEAKER) (test 2.5 g/dL 3.5-5.0 ollh=2829) ALKALINE PHOSPHATASE 120 U/L 40-150 (BEAKER) (test pvno=909) BILIRUBIN TOTAL (BEAKER) 2.4 mg/dL 0.2-1.2 (test gfww=022) SODIUM (BEAKER) (test 141 meq/L 136-145 qtsp=034) POTASSIUM (BEAKER) (test 3.2 meq/L 3.5-5.1 hkss=144) CHLORIDE (BEAKER) (test 112 meq/L 98-107 vide=718) CO2 (BEAKER) (test 19 meq/L 22-29 lokv=165) BLOOD UREA NITROGEN 17 mg/dL 7-21 (BEAKER) (test hdzg=343) CREATININE (BEAKER) (test 1.10 mg/dL 0.57-1.25 rwtu=193) GLUCOSE RANDOM (BEAKER) 122 mg/dL 70-105 (test ucga=402) CALCIUM (BEAKER) (test 8.4 mg/dL 8.4-10.2 frqt=626) AST (SGOT) (BEAKER) (test 117 U/L 5-34 wgzi=031) ALT (SGPT) (BEAKER) (test 44 U/L 6-55 zsfx=306) EGFR (BEAKER) (test 68 mL/min/1.73 sq m ESTIMATED GFR IS NOT rrnl=5128) ACCURATE CREATININE CLEARANCE IN PREDICTING GLOMERULAR FILTRATION RATE. ESTIMATED GFR IS NOT APPLICABLE FOR DIALYSIS PATIENTS. Specimen slightly ictericLIPID [id number] 04:37:00 Test Item Value Reference Range Comments TRIGLYCERIDES (BEAKER) (test nclc=475) 71 mg/dL CHOLESTEROL (BEAKER) (test pawn=491) 105 mg/dL HDL CHOLESTEROL (BEAKER) (test jugw=965) 27 mg/dL LDL CHOLESTEROL CALCULATED (BEAKER) (test 64 mg/dL jwjw=405) Triglyceride Reference Range: Low Risk <150 Borderline 150- 199 High Risk 200-499 Very High Risk >=500Cholesterol Reference Range: Low Risk <200 Borderline 200-239 High Risk > 240HDL Cholesterol Reference Range: Low Risk >=60 High Risk <40LDL Cholesterol Reference Range: Optimal <100 Near Optimal 100-129 Borderline 130-159 High 160-189 Very High >=190 Specimen slightly ictericCBC W/PLT COUNT & AUTO [id number] 04:17:00 Test Item Value Reference Range Comments WHITE BLOOD CELL COUNT (BEAKER) (test jxbn=910) 5.6 K/ L 3.5-10.5 RED BLOOD CELL COUNT (BEAKER) (test trad=572) 2.91 M/ L 4.63-6.08 HEMOGLOBIN (BEAKER) (test eifl=624) 9.8 GM/DL 13.7-17.5 HEMATOCRIT (BEAKER) (test ybpo=946) 28.2 % 40.1-51.0 MEAN CORPUSCULAR VOLUME (BEAKER) (test isnk=028) 96.9 fL 79.0-92.2 MEAN CORPUSCULAR HEMOGLOBIN (BEAKER) (test 33.7 pg 25.7-32.2 uxnq=853) MEAN CORPUSCULAR HEMOGLOBIN CONC (BEAKER) (test 34.8 GM/DL 32.3-36.5 mkxq=414) RED CELL DISTRIBUTION WIDTH (BEAKER) (test 19.1 % 11.6-14.4 lnso=415) PLATELET COUNT (BEAKER) (test atih=299) 87 K/CU MM 150-450 MEAN PLATELET VOLUME (BEAKER) (test ibsm=742) 11.5 fL 9.4-12.4 NUCLEATED RED BLOOD CELLS (BEAKER) (test 0 /100 WBC 0-0 gohj=627) NEUTROPHILS RELATIVE PERCENT (BEAKER) (test 68 % ysss=061) LYMPHOCYTES RELATIVE PERCENT (BEAKER) (test 21 % cucj=581) MONOCYTES RELATIVE PERCENT (BEAKER) (test 10 % jgqf=977) EOSINOPHILS RELATIVE PERCENT (BEAKER) (test 0 % pzii=247) BASOPHILS RELATIVE PERCENT (BEAKER) (test 0 % qfye=859) NEUTROPHILS ABSOLUTE COUNT (BEAKER) (test 3.81 K/ L 1.78-5.38 uwdp=808) LYMPHOCYTES ABSOLUTE COUNT (BEAKER) (test 1.15 K/ L 1.32-3.57 gpjb=567) MONOCYTES ABSOLUTE COUNT (BEAKER) (test pnkj=241) 0.56 K/ L 0.30-0.82 EOSINOPHILS ABSOLUTE COUNT (BEAKER) (test 0.02 K/ L 0.04-0.54 kaha=947) BASOPHILS ABSOLUTE COUNT (BEAKER) (test guwd=905) 0.01 K/ L 0.01-0.08 IMMATURE GRANULOCYTES-RELATIVE PERCENT (BEAKER) 1 % 0-1 (test pnvx=0468) CT, BRAIN, WITHOUT [id number] 03:32:00FINAL REPORT CLINICAL HISTORY: Stroke COMPARISON: None Multiple axial imagesof the brain were performed without IV contrast. This exam was performed according to our departmental dose-optimization program, which includes automated exposure control, adjustment of the mA and/or kV according to patient size and/or use of the iterative reconstruction technique. Intracranial hemorrhage: None. Brain parenchyma: No CT evidence of acute ischemia. Diffuse parenchymal volume loss.Scattered subcortical and periventricular non-specific white matter hypodensities [...] Please note that CT is insensitive in thedetection of acute ischemia. MRI can be obtained, if clinically indicated. Signed: Lily Calderon MDReport Verified Date/Time: 12/11/2018 03:32:31 Reading Location: [address] Reading Room TROPONIAnthony [id number] 02:31:00 Test Item Value Reference Range Comments TROPONIN I (BEAKER) (test kjlu=580) 0.27 ng/mL 0.00-0.03 Troponin I (TnI) levels must be interpreted in the context of the presenting symptoms and the clinical findings. Elevated TnI levels indicate myocardial damage, but are not specific for ischemic heart disease. Elevated TnI levels are seen in patients with other cardiac conditions (including myocarditis and congestive heart failure), and slight TnI elevations occur in patients with other conditions, including sepsis, renal failure, acidosis, acute neurological disease, and persistent tachyarrhythmia.[id number] 02:19:00 Test Item Value Reference Range Comments PHOSPHORUS (BEAKER) (test maoe=272) 2.2 mg/dL 2.3-4.7 [id number] 02:19:00 Test Item Value Reference Range Comments MAGNESIUM (BEAKER) (test zaql=554) 1.6 mg/dL 1.6-2.6 BASIC METABOLIC [id number] 02:19:00 Test Item Value Reference Range Comments SODIUM (BEAKER) (test 141 meq/L 136-145 jhcr=675) POTASSIUM (BEAKER) (test 3.3 meq/L 3.5-5.1 jcqo=827) CHLORIDE (BEAKER) (test 112 meq/L 98-107 ycih=990) CO2 (BEAKER) (test 18 meq/L 22-29 tdfk=019) BLOOD UREA NITROGEN 16 mg/dL 7-21 (BEAKER) (test qiwm=239) CREATININE (BEAKER) (test 1.10 mg/dL 0.57-1.25 nxmd=980) GLUCOSE RANDOM (BEAKER) 123 mg/dL 70-105 (test izpo=180) CALCIUM (BEAKER) (test 8.3 mg/dL 8.4-10.2 uyrh=568) EGFR (BEAKER) (test 68 mL/min/1.73 sq m ESTIMATED GFR IS NOT clje=9129) ACCURATE CREATININE CLEARANCE IN PREDICTING GLOMERULAR FILTRATION RATE. ESTIMATED GFR IS NOT APPLICABLE FOR DIALYSIS PATIENTS. POCT-GLUCOSE [id number] 22:14:00 Test Item Value Reference Range Comments POC-GLUCOSE METER (BEAKER) 149 mg/dL 70-[address] [facility] [address] [facility] (test cmxu=1340) [facility] [address] HEPATITIS C [id number] 21:28:00 Test Item Value Reference Range Comments HEPATITIS C ANTIBODY (BEAKER) (test whwc=174) Reactive Nonreactive HEPATITIS A ANTIBODY, [id number] 20:42:00 Test Item Value Reference Range Comments HEPATITIS A IGM ANTIBODY (BEAKER) (test Nonreactive Nonreactive ektn=714) POCT-GLUCOSE [id number] 18:39:00 Test Item Value Reference Range Comments POC-GLUCOSE METER (BEAKER) 130 mg/dL 70-[address] [facility] [address] [facility] (test wubg=5619) [facility] [address] [id number] 17:37:00 Test Item Value Reference Range Comments PHOSPHORUS (BEAKER) (test < mg/dL 2.3-4.7 Specimen moderately hemolyzed kiqv=156) [id number] 17:28:00 Test Item Value Reference Range Comments MAGNESIUM (BEAKER) (test 1.5 mg/dL 1.6-2.6 Specimen moderately hemolyzed sfua=214) BASIC METABOLIC [id number] 17:28:00 Test Item Value Reference Range Comments SODIUM (BEAKER) (test 139 meq/L 136-145 bwgj=173) POTASSIUM (BEAKER) (test 3.6 meq/L 3.5-5.1 Specimen moderately yvol=262) hemolyzed CHLORIDE (BEAKER) (test 110 meq/L 98-107 ovgj=397) CO2 (BEAKER) (test 21 meq/L 22-29 keee=821) BLOOD UREA NITROGEN 13 mg/dL 7-21 (BEAKER) (test prop=254) CREATININE (BEAKER) (test 0.99 mg/dL 0.57-1.25 Specimen moderately imbi=180) hemolyzed GLUCOSE RANDOM (BEAKER) 108 mg/dL 70-105 (test pvix=064) CALCIUM (BEAKER) (test 8.6 mg/dL 8.4-10.2 hlow=652) EGFR (BEAKER) (test 77 mL/min/1.73 sq m ESTIMATED GFR IS NOT qhjw=4568) ACCURATE CREATININE CLEARANCE IN PREDICTING GLOMERULAR FILTRATION RATE. ESTIMATED GFR IS NOT APPLICABLE FOR DIALYSIS PATIENTS. [id number] 15:43:00 Test Item Value Reference Range Comments PHOSPHORUS (BEAKER) (test jcfq=981) < mg/dL 2.3-4.7 [id number] 15:37:00 Test Item Value Reference Range Comments MAGNESIUM (BEAKER) (test tiut=700) 1.2 mg/dL 1.6-2.6 HEPATOBILIARY [id number] 15:02:00Ordered for surgical team, Dr. Hernandez REPORT PROCEDURE: HEPATOBILIARY SCAN CPT CODE: 82751 INDICATION: Cholelithiasis, acute encephalopathy PROTOCOL: 5.4 mCi of Tc-99m mebrofenin was injected intravenously. Images of the upper abdomen were obtained for approximately 70 minutes after tracer injection. FINDINGS: Initial tracer uptake into the liver is physiological. Subsequent tracer clearance from the liver proceeds normally. There is good visualization of the extrahepatic biliary duct and the gallbladder , and the tracer appears appropriately in the small bowel. Of note, theliver morphology is abnormal, with left hepatic lobe hypertrophy and decreased in size of the right lobe. IMPRESSION: Normal hepatobiliary scan with findings consistent with hepatocellular disease. Signed: Peggy Weldon MDReport Verified Date/Time: 12/10/2018 15:02:05 Reading Location: [address] Reading Room Electronically signed by: PEGGY WELDON MD on 03:02 PMTROPONIN [id number] 12:57:00 Test Item Value Reference Range Comments TROPONIN I (BEAKER) (test uqdk=399) 0.33 ng/mL 0.00-0.03 Troponin I (TnI) levels must be interpreted in the context of the presenting symptoms and the clinical findings. Elevated TnI levels indicate myocardial damage, but are not specific for ischemic heart disease. Elevated TnI levels are seen in patients with other cardiac conditions (including myocarditis and congestive heart failure), and slight TnI elevations occur in patients with other conditions, including sepsis, renal failure, acidosis, acute neurological disease, and persistent tachyarrhythmia.BASIC METABOLIC [id number] 12:38:00 Test Item Value Reference Range Comments SODIUM (BEAKER) (test 137 meq/L 136-145 wczp=513) POTASSIUM (BEAKER) (test 3.3 meq/L 3.5-5.1 jpdb=814) CHLORIDE (BEAKER) (test 108 meq/L 98-107 ronb=436) CO2 (BEAKER) (test 22 meq/L 22-29 inhu=486) BLOOD UREA NITROGEN 13 mg/dL 7-21 (BEAKER) (test cuzb=103) CREATININE (BEAKER) (test 0.94 mg/dL 0.57-1.25 nffz=271) GLUCOSE RANDOM (BEAKER) 139 mg/dL 70-105 (test rnsq=152) CALCIUM (BEAKER) (test 8.4 mg/dL 8.4-10.2 nogc=008) EGFR (BEAKER) (test 82 mL/min/1.73 sq m ESTIMATED GFR IS NOT xlyn=9074) ACCURATE CREATININE CLEARANCE IN PREDICTING GLOMERULAR FILTRATION RATE. ESTIMATED GFR IS NOT APPLICABLE FOR DIALYSIS PATIENTS. Specimen slightly ictericLACTIC ACID, [id number] 12:34:00 Test Item Value Reference Range Comments LACTATE BLOOD VENOUS (2) (BEAKER) (test 2.3 mmol/L 0.5-2.2 ftml=0997) POCT-GLUCOSE [id number] 12:26:00 Test Item Value Reference Range Comments POC-GLUCOSE METER (BEAKER) 146 mg/dL 70-[address] [facility] [address] [facility] (test yffc=8091) [facility] [address] LACTIC ACID, [id number] 08:36:00 Test Item Value Reference Range Comments LACTATE BLOOD VENOUS (2) 1.9 mmol/L 0.5-2.2 Specimen slightly hemolyzed (BEAKER) (test exun=7185) URINALYSIS WITH MICROSCOPIC IF [id number] 08:24:00 Test Item Value Reference Range Comments COLOR (BEAKER) (test ujlh=518) Yellow CLARITY (BEAKER) (test exxn=919) Clear SPECIFIC GRAVITY UA (BEAKER) (test osxu=343) 1.008 1.001-1.035 PH UA (BEAKER) (test bvmr=812) 8.0 5.0-8.0 PROTEIN UA (BEAKER) (test dxpj=699) 100 mg/dL Negative GLUCOSE UA (BEAKER) (test fhei=483) Negative Negative KETONES UA (BEAKER) (test yhxz=438) Negative Negative BILIRUBIN UA (BEAKER) (test uyjp=950) Negative Negative BLOOD UA (BEAKER) (test rfke=326) Moderate Negative NITRITE UA (BEAKER) (test zwim=803) Negative Negative LEUKOCYTE ESTERASE UA (BEAKER) (test oghe=934) Negative Negative UROBILINOGEN UA (BEAKER) (test lgca=295) 0.2 mg/dL 0.2-1.0 SOURCE(BEAKER) (test wnzx=6372) URINALYSIS [id number] 08:24:00 Test Item Value Reference Range Comments RBC UA (BEAKER) (test gnln=860) 31 /HPF WBC UA (BEAKER) (test gjxc=184) 2 /HPF BACTERIA (BEAKER) (test iltp=420) Occasional MUCUS (BEAKER) (test tkvl=0546) Occasional HYALINE CASTS (BEAKER) (test evjf=573) 2 /LPF [id number] 06:27:00 Test Item Value Reference Range Comments PROCALCITONIN (BEAKER) (test xrwm=3235) 0.11 ng/mL <0.05 SEPSIS RISK (ng/mL)Low: 0.05-0.50Intermediate: 0.51-2.00High: & gt;=2.01TROPONIN [id number] 05:56:00 Test Item Value Reference Range Comments TROPONIN I (BEAKER) (test cgus=100) 0.27 ng/mL 0.00-0.03 Troponin I (TnI) levels must be interpreted in the context of the presenting symptoms and the clinical findings. Elevated TnI levels indicate myocardial damage, but are not specific for ischemic heart disease. Elevated TnI levels are seen in patients with other cardiac conditions (including myocarditis and congestive heart failure), and slight TnI elevations occur in patients with other conditions, including sepsis, renal failure, acidosis, acute neurological disease, and persistent tachyarrhythmia.COMPREHENSIVE METABOLIC [id number] 05:50:00 Test Item Value Reference Range Comments TOTAL PROTEIN (BEAKER) 6.4 gm/dL 6.0-8.3 (test awgs=437) ALBUMIN (BEAKER) (test 2.6 g/dL 3.5-5.0 ypba=2697) ALKALINE PHOSPHATASE 126 U/L 40-150 (BEAKER) (test mcbm=034) BILIRUBIN TOTAL (BEAKER) 2.0 mg/dL 0.2-1.2 (test btfd=854) SODIUM (BEAKER) (test 139 meq/L 136-145 yegw=686) POTASSIUM (BEAKER) (test 2.8 meq/L 3.5-5.1 etbf=918) CHLORIDE (BEAKER) (test 108 meq/L 98-107 onqb=737) CO2 (BEAKER) (test 22 meq/L 22-29 nlwe=348) BLOOD UREA NITROGEN 10 mg/dL 7-21 (BEAKER) (test fbhx=046) CREATININE (BEAKER) (test 0.87 mg/dL 0.57-1.25 prvc=310) GLUCOSE RANDOM (BEAKER) 109 mg/dL 70-105 (test zrbd=905) CALCIUM (BEAKER) (test 8.7 mg/dL 8.4-10.2 eurt=636) AST (SGOT) (BEAKER) (test 109 U/L 5-34 fujm=698) ALT (SGPT) (BEAKER) (test 48 U/L 6-55 xuad=424) EGFR (BEAKER) (test 89 mL/min/1.73 sq m ESTIMATED GFR IS NOT rdpx=2871) ACCURATE CREATININE CLEARANCE IN PREDICTING GLOMERULAR FILTRATION RATE. ESTIMATED GFR IS NOT APPLICABLE FOR DIALYSIS PATIENTS. PROTHROMBIN TIME/[id number] 05:43:00 Test Item Value Reference Range Comments PROTIME (BEAKER) (test nhqq=372) 18.4 seconds 11.7-14.7 INR (BEAKER) (test nqob=097) 1.5 <=5.9 RECOMMENDED COUMADIN/WARFARIN INR THERAPY RANGESSTANDARD DOSE: 2.0 - 3.0 Includes: PROPHYLAXIS forvenous thrombosis, systemic embolization; TREATMENT for venous thrombosis and/or pulmonary embolus.HIGH RISK: Target INR is 2.5-3.5 for patients with mechanical heart valves.LACTIC ACID, [id number] 05:38:00 Test Item Value Reference Range Comments LACTATE BLOOD VENOUS (2) (BEAKER) (test 2.5 mmol/L 0.5-2.2 datu=8677) CBC W/PLT COUNT & AUTO [id number] 05:34:00 Test Item Value Reference Range Comments WHITE BLOOD CELL COUNT (BEAKER) (test bfka=600) 4.3 K/ L 3.5-10.5 RED BLOOD CELL COUNT (BEAKER) (test tuiy=326) 3.01 M/ L 4.63-6.08 HEMOGLOBIN (BEAKER) (test aaff=976) 10.0 GM/DL 13.7-17.5 HEMATOCRIT (BEAKER) (test uyhn=826) 29.1 % 40.1-51.0 MEAN CORPUSCULAR VOLUME (BEAKER) (test uotx=729) 96.7 fL 79.0-92.2 MEAN CORPUSCULAR HEMOGLOBIN (BEAKER) (test 33.2 pg 25.7-32.2 otwk=599) MEAN CORPUSCULAR HEMOGLOBIN CONC (BEAKER) (test 34.4 GM/DL 32.3-36.5 bnxj=076) RED CELL DISTRIBUTION WIDTH (BEAKER) (test 18.0 % 11.6-14.4 pbuv=003) PLATELET COUNT (BEAKER) (test jdmv=025) 82 K/CU MM 150-450 MEAN PLATELET VOLUME (BEAKER) (test bxim=189) 11.3 fL 9.4-12.4 NUCLEATED RED BLOOD CELLS (BEAKER) (test 0 /100 WBC 0-0 faaw=433) NEUTROPHILS RELATIVE PERCENT (BEAKER) (test 58 % mtpu=038) LYMPHOCYTES RELATIVE PERCENT (BEAKER) (test 32 % srfl=124) MONOCYTES RELATIVE PERCENT (BEAKER) (test 8 % eekq=727) EOSINOPHILS RELATIVE PERCENT (BEAKER) (test 1 % diqr=731) BASOPHILS RELATIVE PERCENT (BEAKER) (test 0 % pofj=403) NEUTROPHILS ABSOLUTE COUNT (BEAKER) (test 2.48 K/ L 1.78-5.38 ljbn=060) LYMPHOCYTES ABSOLUTE COUNT (BEAKER) (test 1.38 K/ L 1.32-3.57 ncrk=566) MONOCYTES ABSOLUTE COUNT (BEAKER) (test ojpw=957) 0.34 K/ L 0.30-0.82 EOSINOPHILS ABSOLUTE COUNT (BEAKER) (test 0.03 K/ L 0.04-0.54 ittj=086) BASOPHILS ABSOLUTE COUNT (BEAKER) (test geeq=313) 0.01 K/ L 0.01-0.08 IMMATURE GRANULOCYTES-RELATIVE PERCENT (BEAKER) 1 % 0-1 (test wmzx=2579)
--- OUTSIDE RECORDS SUMMARY | 2019-03-30 13:32 | XMS REPORT ---
:1955 Author Organization [employer] Care Team Providers Name Role Phone Brown, Na Provider Role Unavailable Allergies, Adverse Reactions, Alerts Substance Reaction Event Type Claritin Info Not Available Drug Allergy Problems Problem Type Condition Code Onset Dates Condition Status Problem Hyperlipidemia E78.5 Active Problem Controlled type 2 diabetes mellitus E11.9 Active without complication, without long-term current use of insulin Problem Migraine with status migrainosus, G43.901 Active not intractable, unspecified migraine type Problem Elevated liver enzymes R74.8 Active Assessment Bleeds easily D69.9 Active Problem Erectile dysfunction N52.9 Active Assessment Iron deficiency anemia, unspecified D50.9 Active iron deficiency anemia type Assessment Chronic hepatitis C B18.2 Active Problem Thrombocytopenic D69.6 Active Problem Lumbosacral spondylosis without M47.817 Active myelopathy Problem Iron deficiency anemia, unspecified D50.9 Active iron deficiency anemia type Problem Chronic hepatitis C B18.2 Active Problem Pain R52 Active Assessment Edema of both legs R60.0 Active Assessment Benign essential HTN I10 Active Assessment Thrombocytopenic D69.6 Active Assessment Hyperlipidemia E78.5 Active Assessment Hospital discharge follow-up Z09 Active Assessment Lumbosacral spondylosis without M47.817 Active myelopathy Assessment Hepatic encephalopathy K72.90 Active Problem Benign essential HTN I10 Active Assessment Elevated liver enzymes R74.8 Active Assessment Controlled type 2 diabetes mellitus E11.9 Active without complication, without long-term current use of insulin Problem Diabetes E11.9 Active Medications Medication Code Code Instructions Start End Status Dosage System Date Date Cefdinir ND 22213096257 300 MG Orally Active as directed Tradjenta ND 72410084484 5 MG Orally Active 1 tablet Once a day Flonase ND 56067774726 50 MCG/ACT Active 1 spray in Nasally Once a each day nostril Lactulose ND 07660532872 20 GM/30ML Active 15 ml Orally Once a day Ferrous Sulfate ND 71117192405 325 (65 Fe) MG Active 1 tablet Orally Once a day blood glucose test ND 0 n/s once a December Active one strip day 2017 Gabapentin [facility] 61434914306 600MG Active TAKE TWO TABLETS BY MOUTH THREE TIMES DAILY Hyzaar [facility] 85548543054 50-12.5 MG Active 1 tablet Orally Once a day Cholecalciferol [facility] 432[address]9086 UNIT Active 1 capsule Orally Zyrtec Allergy [facility] 92489362319 10 MG Orally Active 1 tablet Once a day Singulair [facility] 42495264095 10 MG Orally Active 1 tablet Once a day in the evening Rifaximin [facility] [address]-40 550 MG Orally Active 1 tablet Twice a day [place] [facility] 59426220926 7.5-325 MG Active 1 tablet Orally every 6 as needed hrs Alcohol Prep Pads ND 0 twice a day December Active as 2017 Lancets Super Thin NDC 0 n/s finger December Active one stick once 2017 Doxycycline [facility] 88885646950 100 MG Orally Active 1 capsule Hyclate Once a day Results No Known Results Summary Purpose eClinicalWorks Submission
--- OUTSIDE RECORDS SUMMARY | 2019-03-30 13:32 | XMS REPORT ---
[...] End Status Dosage System Date Date Singulair [facility] 06916500403 10 MG Orally Active 1 tablet in Once a day the evening Flonase [facility] 74389700371 50 MCG/ACT Active 1 spray in Nasally Once a each day nostril Alcohol Prep NDC 0 twice a day December Active as directed Pads 2017 [place] [facility] 50028413628 7.5-325 MG Active 1 tablet as Orally every 6 needed hrs Gabapentin [facility] 97791119016 600MG Active TAKE TWO TABLETS BY MOUTH THREE TIMES DAILY Cialis [facility] 05124866571 20 MG Orally Jun 18, Active 1 tablet once a day prn 2018 erectile dysfunction Hyzaar [facility] 91607534967 50-12.5 MG Active 1 tablet Orally Once a day Lancets Super NDC 0 n/s finger stick December Active one Thin once 2017 Tradjenta [facility] 33364710532 5 MG Orally Once Active 1 tablet a day blood glucose NDC 0 n/s once a day December Active one test strip 2017 Zyrtec Allergy [facility] 45157091167 10 MG Orally Active 1 tablet Once a day Ferrous [facility] 90251981508 325 (65 Fe) MG Active 1 tablet Sulfate Orally Once a day Results No Known Results Summary Purpose eClinicalWorks Submission
[2019-03-30] MEDS ORDERED: CEFTRIAXONE/SWI 1gm 1 GM/10 ML SYR ONE (14:01)
[2019-03-30] MEDS ORDERED: NA CHLORIDE 0.9% 1,000 ML ONE (14:01)
--- NOTE | 2019-03-30 14:21 | RAD REPORT ---
EXAM DESCRIPTION: CT - Head Brain Wo Cont - 03/30/2019 2:13 pm CLINICAL HISTORY: PAIN Headache, drowsiness, unresponsiveness COMPARISON: Head Brain Wo Cont dated 12/09/2018; HEAD BRAIN W O CONTRAST dated 05/06/2015 TECHNIQUE: All CT scans are performed using dose optimization technique as appropriate and may inclu de automated exposure control or mA/KV adjustment according to patient size. FINDINGS: No intracranial hemorrhage, hydrocephalus or extra-axial fluid collection.No areas of brai n edema or evidence of midline shift. The paranasal sinuses and mastoids are clear. The calvarium is intact. IMPRESSION: No acute intracranial abnormality.
[2019-03-30 14:41] LABS: Absolute Lymphocytes (CBC) 0.9 K/uL (0.7-4.9); Basophils % 0.2 % (0-1.3); Eosinophils % 0.2 % (0-4.4); Hematocrit 31.1 % (39.6-49.0); Lymphocytes % 20.8 % (15.3-44.8); MPV 8.6 fL (7.6-11.3); Monocytes % 8.9 % (3.3-12.3); RBC Red Blood Cell Count 2.96 M/uL (4.33-5.43)
[2019-03-30 14:45] LABS: Protime INR 1.55
[2019-03-30 15:02] LABS: ALT/SGPT 64 U/L (12-78); AST/SGOT 212 U/L (15-37); Albumin 2.8 g/dL (3.4-5.0); Alkaline Phosphatase 142 U/L (45-117); BUN Blood Urea Nitrogen 22 mg/dL (7-18); Bicarbonate 25 mmol/L (21-32); Bilirubin Total 2.9 mg/dL (0.2-1.0); Glucose Level 118 mg/dL (74-106); Protein, Total 7.6 g/dL (6.4-8.2); Sodium Level 139 mmol/L (136-145)
[2019-03-30 15:07] LABS: Potassium 2.7 mmol/L (3.5-5.1)
[2019-03-30 15:15] LABS: Anisocytosis 2+; Blood Morphology Comment NOTED (NOT SEEN); Macrocytosis 1+; Platelet Estimate DECR; Urine White Blood Cell Casts OK
[2019-03-30] MEDS ORDERED: LACTULOSE 20 GM/30 ML UCUP PO PRN (15:36)
--- NOTE | 2019-03-30 15:44 | EDPHYS ---
Physician Documentation [facility] Name: Christopher Farrar Age: 63 yrs Sex: Male : 1955 Arrival Date: 03/30/2019 Time: 13:27 Bed 2 Private MD: ED Physician Latha Parra HPI: 03/30 13:37 This 63 yrs old Male presents to ER via EMS with complaints of confusion. ma2 13:37 The patient presents with confusion, decreased mental status. Onset: The ma2 symptoms/episode began/occurred gradually, at an unknown time. Associated signs and symptoms: Pertinent positives: confusion, Pertinent negatives: ataxia, combativeness. The patient has experienced similar episodes in the past. hx of liver cirrhosis takes lactulose reports diarrhea, found confused and altered in his home floor this morning > 4 hrs ago . Historical: - Allergies: 13:37 No Known Allergies; ca1 - Home Meds: 13:37 hydrocodone-acetaminophen 7.5-325 mg Oral tab three times a day [Active]; gabapentin ca1 600 mg Oral tab 3 times per day [Active]; losartan oral oral [Active]; Tradjenta 5 mg oral tab 1 tab once daily [Active]; Lactulose Oral [Active]; Xifaxan 550 mg oral tab 1 tab 2 times per day [Active]; - PMHx: 13:37 Diabetes - NIDDM; Hepatitis; Hypertension; ca1 - PSHx: 13:37 back; neck; left ankle; ca1 - Immunization history:: Adult Immunizations unknown. - Social history:: Smoking status: Patient uses tobacco products, Patient/guardian denies using alcohol, street drugs, The patient lives with family. - Ebola Screening: : Patient negative for fever greater than or equal to 101.5 degrees Fahrenheit, and additional compatible Ebola Virus Disease symptoms Patient denies exposure to infectious person Patient denies travel to an Ebola-affected area in the 21 days before illness onset No symptoms or risks identified at this time. - Family history:: not pertinent. ROS: 13:37 Constitutional: Negative for fever, chills, and weight loss. ma2 13:37 Unable to obtain ROS due to altered mental status. Exam: 13:37 Head/Face: Normocephalic, atraumatic. Chest/axilla: Normal chest wall appearance and ma2 motion. Nontender with no deformity. No lesions are appreciated. Cardiovascular: Regular rate and rhythm with a normal S1 and S2. No gallops, murmurs, or rubs. Normal PMI, no JVD. No pulse deficits. Respiratory: Lungs have equal breath sounds bilaterally, clear to auscultation and percussion. No rales, rhonchi or wheezes noted. No increased work of breathing, no retractions or nasal flaring. Abdomen/GI: Soft, non-tender, with normal bowel sounds. No distension or tympany. No guarding or rebound. No evidence of tenderness throughout. 13:37 Constitutional: The patient appears frail, in obvious distress, mildly distressed, smells of ketones, restless, unkempt. 13:37 Neuro: Orientation: Not oriented to person, place, time, Mentation: slow to respond, confused, Memory: Cerebellar function: unable to test, Motor: unable to test, Sensation: unable to test, Gait: unable to assess, is unsteady. Vital Signs: 13:37 BP 127 / 82; Pulse 86; Resp 17 S; Temp 98.1(O); Pulse Ox 99% on R/A; Weight 81.65 kg ca1 (R); Height 5 ft. 10 in. (177.80 cm) (R); Pain 0/10; 14:37 BP 129 / 87; Pulse 77; Resp 17 S; Pulse Ox 100% on R/A; ca1 15:12 BP 130 / 74; Pulse 88; Resp 16 S; Pulse Ox 100% ; ca1 16:05 BP 127 / 92; Pulse 87; Resp 18 S; Pulse Ox 100% on R/A; ca1 16:30 BP 133 / 78; Pulse 85; Resp 17 S; Pulse Ox 100% on R/A; ca1 17:12 BP 123 / 69; Pulse 67; Resp 16 S; Temp 98.2(O); Pulse Ox 100% on R/A; ca1 17:55 BP 132 / 72; Pulse 73; Resp 16 S; Pulse Ox 100% on R/A; ca1 13:37 Body Mass Index 25.83 (81.65 kg, 177.80 cm) ca1 MDM: 13:29 Patient medically screened. ma2 13:37 Differential Diagnosis: hypoglycemia, TIA, UTI, volume depletion. Data reviewed: vital ma2 signs, nurses notes. Counseling: I had a detailed discussion with the patient and/or guardian regarding: the historical points, exam findings, and any diagnostic results supporting the discharge/admit diagnosis, the presence of at least one elevated blood pressure reading (>120/80) during this emergency department visit, the need for further work-up and treatment in the hospital. 15:33 Physician consultation: Pranay Santana MD. [facility] 15:33 Response to treatment: the patient's symptoms have markedly improved after treatment. [facility] 03/30 13:31 Order name: AMMONIA [facility] 03/30 13:31 Order name: CMP [facility] 03/30 13:31 Order name: CBC with Diff [facility] 03/30 13:31 Order name: PT-INR; Complete Time: 14:53 [facility] 03/30 13:31 Order name: Alcohol Level; Complete Time: 15:27 [facility] 03/30 13:31 Order name: UDS [facility] 03/30 13:31 Order name: Acetaminophen; Complete Time: 15:27 [facility] 03/30 13:31 Order name: Salicylate; Complete Time: 15:27 [facility] 03/30 13:32 Order name: Ammonia; Complete Time: 15:27 [facility] 03/30 13:32 Order name: Comprehensive Metabolic Panel; Complete Time: 15:27 [facility] 03/30 13:32 Order name: CBC with Automated Diff; Complete Time: 15:27 [facility] 03/30 14:47 Order name: CBC Smear Scan; Complete Time: 15:27 [facility] 03/30 15:40 Order name: Urine Dipstick--Ancillary (enter results) 03/30 15:49 Order name: Blood Culture [facility] 03/30 13:31 Order name: CT Head Brain wo Cont; Complete Time: 14:39 [facility] 03/30 13:31 Order name: Urine Dipstick-Ancillary (obtain specimen); Complete Time: 16:18 [facility] 03/30 14:04 Order name: Labs - recollect needed; Complete Time: 14:32 dh3 03/30 15:49 Order name: CONS Pharmacy Consult [facility] 03/30 15:49 Order name: NPO [facility] 03/30 15:50 Order name: Chest Single View [facility] 03/30 15:51 Order name: CONS Pharmacy Consult [facility] Administered Medications: 14:20 Drug: NS 0.9% 500 ml Route: IV; Rate: 1 bolus; Site: left antecubital; ca1 15:29 Follow up: IV Status: Completed infusion ca1 14:22 Drug: Rocephin 1 grams Route: IV; Rate: calculated rate; Site: left antecubital; ca1 15:00 Follow up: Response: No adverse reaction; IV Status: Completed infusion ca1 15:40 Drug: Magnesium Sulfate 1 grams Route: IVPB; Infused Over: 1 hrs; Site: left ca1 antecubital; 16:45 Follow up: Response: No adverse reaction; IV Status: Completed infusion ca1 15:41 Not Given (Duplicate Order): Potassium Chloride 10 mEq IV at calculated rate once; ca1 administer over 1-2 hours 15:44 Drug: Zofran 4 mg Route: IVP; Site: left antecubital; ca1 17:29 Follow up: Response: No adverse reaction ca1 15:50 Drug: morphine 2 mg Route: IVP; Site: left antecubital; ca1 17:28 Follow up: Response: No adverse reaction; Pain is decreased ca1 16:00 Drug: Potassium Chloride 20 mEq Route: IV; Rate: calculated rate; Site: left ca1 antecubital; 18:02 Follow up: Response: No adverse reaction; IV Status: Infusion continued upon admission ca1 Disposition: 03/30/19 15:35 Hospitalization ordered by Pranay Santana for Observation. Preliminary diagnosis are Altered mental status, unspecified, Hypokalemia, Acute kidney failure, unspecified. - Bed requested for Telemetry/MedSurg (observation). - Status is Observation. ca1 - Condition is Stable. - Problem is an acute exacerbation. - Symptoms have improved. UTI on Admission? No Signatures: Dispatcher [employer] Lianna Arechiga 3 Latha Parra MD MD ma2 Neetu Pinto Cheryl RN RN ca1 Corrections: (The following items were deleted from the chart) 17:10 15:35 Hospitalization Ordered by Pranay Santana MD for Observation. Preliminary eb diagnosis is Altered mental status, unspecified; Hypokalemia; Acute kidney failure, unspecified. Bed requested for Telemetry/MedSurg (observation). Status is Observation. Condition is Stable. Problem is an acute exacerbation. Symptoms have improved. UTI on Admission? No. ma2 18:03 17:10 03/30/2019 15:35 Hospitalization Ordered by Pranay Santana MD for Observation. ca1 Preliminary diagnosis is Altered mental status, unspecified; Hypokalemia; Acute kidney failure, unspecified. Bed requested for Telemetry/MedSurg (observation). Status is Observation. Condition is Stable. Problem is an acute exacerbation. Symptoms have improved. UTI on Admission? No. eb
--- NOTE | 2019-03-30 15:44 | ER ---
Nurse's Notes [facility] Name: Christopher Farrar Age: 63 yrs Sex: Male : 1955 Arrival Date: 03/30/2019 Time: 13:27 Bed 2 Private MD: Diagnosis: Altered mental status, unspecified;Hypokalemia;Acute kidney failure, unspecified Presentation: 03/30 13:29 Presenting complaint: EMS states: Pt was found by neighbor on the floor for possible ca1 LOC. Pt is having diarrhea on the floor. Pt also has slurring of speech and appears disoriented. Unable to obtain when pt was last seen normal and what is his baseline mental status. Pt takes Hydrocodone, Gabapentin, Lactulose, Xifaxan, Losartan and Trajenta. Transition of care: patient was not received from another setting of care. Onset of symptoms was March 30, 2019. Risk Assessment: Do you want to hurt yourself or someone else? Patient reports no desire to harm self or others. Initial Sepsis Screen: Does the patient meet any 2 criteria? No. Patient's initial sepsis screen is negative. Does the patient have a suspected source of infection? No. Patient's initial sepsis screen is negative. Care prior to arrival: Glucose check: 135. 13:29 Method Of Arrival: EMS: [facility] ca1 13:29 Acuity: GENE 2 ca1 Triage Assessment: 13:37 General: Appears in no apparent distress. unkempt, Behavior is calm, cooperative. Pain: ca1 Denies pain. Neuro:. Historical: - Allergies: 13:37 No Known Allergies; ca1 - Home Meds: 13:37 hydrocodone-acetaminophen 7.5-325 mg Oral tab three times a day [Active]; gabapentin ca1 600 mg Oral tab 3 times per day [Active]; losartan oral oral [Active]; Tradjenta 5 mg oral tab 1 tab once daily [Active]; Lactulose Oral [Active]; Xifaxan 550 mg oral tab 1 tab 2 times per day [Active]; - PMHx: 13:37 Diabetes - NIDDM; Hepatitis; Hypertension; ca1 - PSHx: 13:37 back; neck; left ankle; ca1 - Immunization history:: Adult Immunizations unknown. - Social history:: Smoking status: Patient uses tobacco products, Patient/guardian denies using alcohol, street drugs, The patient lives with family. - Ebola Screening: : Patient negative for fever greater than or equal to 101.5 degrees Fahrenheit, and additional compatible Ebola Virus Disease symptoms Patient denies exposure to infectious person Patient denies travel to an Ebola-affected area in the 21 days before illness onset No symptoms or risks identified at this time. - Family history:: not pertinent. Screenin:39 Abuse screen: Denies threats or abuse. Denies injuries from another. Nutritional ca1 screening: No deficits noted. Tuberculosis screening: No symptoms or risk factors identified. Fall Risk Fall in past 12 months (25 points). IV access (20 points). Assessment: 13:39 General: Appears in no apparent distress. unkempt, Behavior is calm, cooperative. Pain: ca1 Denies pain. Neuro: Level of Consciousness is awake, alert, confused, Oriented to person. Neuro: Level of Consciousness is awake, alert, confused, Order Taker are equal bilaterally Moves all extremities. Gait is steady, Speech is normal, Facial symmetry appears normal. Cardiovascular: Heart tones S1 S2 present Capillary refill < 3 seconds Patient's skin is warm and dry. Respiratory: Airway is patent Respiratory effort is even, unlabored, Respiratory pattern is regular, symmetrical, Breath sounds are clear bilaterally. GI: Abdomen is flat, non-distended, Bowel sounds present X 4 quads. Abd is soft X 4 quads Abdomen is tender to palpation in right upper quadrant and right lower quadrant Reports diarrhea. : No deficits noted. No signs and/or symptoms were reported regarding the genitourinary system. EENT: No deficits noted. No signs and/or symptoms were reported regarding the EENT system. Derm: Skin is intact, is healthy with good turgor, Skin is jaundiced, pale. Musculoskeletal: Circulation, motion, and sensation intact. Capillary refill < 3 seconds, Range of motion: intact in all extremities. 14:37 Reassessment: Patient appears in no apparent distress at this time. No changes from ca1 previously documented assessment. Patient and/or family updated on plan of care and expected duration. Pain level reassessed. 14:39 Reassessment: contacted pt's sister Cassandra Farley per pt request, pone number iw obtained from demographic sheet on file , sister states she will be by soon. 15:06 Reassessment: Patient appears in no apparent distress at this time. Sister at bedside. ca1 States that this is not pt's normal, pt had Hep C which has progressed to Cirrhosis. He is normally I and Ox4 but he has episodes of confusion and disorientation at the past due to increased levels of Ammonia. The most recent was a few months ago where the pt was admitted at [facility]. Sister also reports that last known normal mental status of pt was 3 days ago. 16:05 Reassessment: Patient appears in no apparent distress at this time. Patient is alert, ca1 oriented x 3, equal unlabored respirations, skin warm/dry/pink. family at bedside. 17:20 Reassessment: Patient appears in no apparent distress at this time. No changes from ca1 previously documented assessment. Patient and/or family updated on plan of care and expected duration. Pain level reassessed. Sister still at bedside. Called for report. Mckinley olivares says to call back in 20 minutes, receiving nurse just got another pt. 17:51 Reassessment: Patient appears in no apparent distress at this time. Pt and family ca1 refused 2nd set of cultures. Picture Framer and clock repair technician attempted and was unsuccessful. Notified lab. Vital Signs: 13:37 BP 127 / 82; Pulse 86; Resp 17 S; Temp 98.1(O); Pulse Ox 99% on R/A; Weight 81.65 kg ca1 (R); Height 5 ft. 10 in. (177.80 cm) (R); Pain 0/10; 14:37 BP 129 / 87; Pulse 77; Resp 17 S; Pulse Ox 100% on R/A; ca1 15:12 BP 130 / 74; Pulse 88; Resp 16 S; Pulse Ox 100% ; ca1 16:05 BP 127 / 92; Pulse 87; Resp 18 S; Pulse Ox 100% on R/A; ca1 16:30 BP 133 / 78; Pulse 85; Resp 17 S; Pulse Ox 100% on R/A; ca1 17:12 BP 123 / 69; Pulse 67; Resp 16 S; Temp 98.2(O); Pulse Ox 100% on R/A; ca1 17:55 BP 132 / 72; Pulse 73; Resp 16 S; Pulse Ox 100% on R/A; ca1 13:37 Body Mass Index 25.83 (81.65 kg, 177.80 cm) ca1 ED Course: 13:27 Patient arrived in ED. ph 13:29 Latha Parra MD is Attending Physician. ma2 13:29 Marisol May, IGOR is Primary Nurse. ca1 13:30 Missed attempt(s): 20 gauge in right antecubital area. Bleeding controlled, band aid ca1 applied, catheter tip intact. 13:33 Triage completed. ca1 13:37 Arm band placed on right wrist. ca1 13:39 Patient has correct armband on for positive identification. Bed in low position. Call ca1 light in reach. Side rails up X2. Pulse ox on. NIBP on. 13:39 No provider procedures requiring assistance completed. Inserted saline lock: 20 gauge ca1 in right in left antecubital area, using aseptic technique. ,using aseptic technique. by DANIEL Jasso Blood collected. 13:45 EKG done, by ED staff, reviewed by Latha Parra MD. jb1 14:[address] via stretcher. em2 14:13 CT Head Brain wo Cont In Process Unspecified. EDMS 14:22 CT completed. Patient tolerated procedure well. Patient moved back from CT. em2 15:19 Notified ED physician of a critical lab result(s). K-2.7. la1 15:30 Straight cath inserted, using sterile technique, 16 Fr. Specimen obtained. Returned ca1 omid urine. Patient tolerated well. 15:34 Pranay Santana MD is Hospitalizing Provider. ma2 16:52 First set of blood cultures drawn by nj. ca1 17:26 Patient admitted, IV remains in place. ca1 Administered Medications: 14:20 Drug: NS 0.9% 500 ml Route: IV; Rate: 1 bolus; Site: left antecubital; ca1 15:29 Follow up: IV Status: Completed infusion ca1 14:22 Drug: Rocephin 1 grams Route: IV; Rate: calculated rate; Site: left antecubital; ca1 15:00 Follow up: Response: No adverse reaction; IV Status: Completed infusion ca1 15:40 Drug: Magnesium Sulfate 1 grams Route: IVPB; Infused Over: 1 hrs; Site: left ca1 antecubital; 16:45 Follow up: Response: No adverse reaction; IV Status: Completed infusion ca1 15:41 Not Given (Duplicate Order): Potassium Chloride 10 mEq IV at calculated rate once; ca1 administer over 1-2 hours 15:44 Drug: Zofran 4 mg Route: IVP; Site: left antecubital; ca1 17:29 Follow up: Response: No adverse reaction ca1 15:50 Drug: morphine 2 mg Route: IVP; Site: left antecubital; ca1 17:28 Follow up: Response: No adverse reaction; Pain is decreased ca1 16:00 Drug: Potassium Chloride 20 mEq Route: IV; Rate: calculated rate; Site: left ca1 antecubital; 18:02 Follow up: Response: No adverse reaction; IV Status: Infusion continued upon admission ca1 Output: 15:30 Urine: 200ml (Straight Cath); Total: 200ml. ca1 Outcome: 15:35 Decision to Hospitalize by Provider. ma2 17:54 Admitted to Tele accompanied by tech, via wheelchair, room 427, with chart, Report ca1 called to Jana Vaughn RN 17:54 Condition: stable 17:54 Instructed on the need for admit. 18:03 Patient left the ED. ca1 Signatures: Dispatcher [employer] EDFinn Garrett jb1 Louisa Kimbrough RN RN iw Montes, Enrique 2 Americo Juan RN RN la1 Hall, Patricia, RN RN ph Alzahri, Mohammad, MD MD ma2 Marisol May RN RN ca1 Corrections: (The following items were deleted from the chart) 15:12 13:39 General: Appears in no apparent distress. unkempt, Behavior is calm, cooperative, ca1 appropriate for age, ca1 15:12 13:39 Neuro: Order Taker are equal bilaterally Moves all extremities. Gait is steady, Speech ca1 is normal, Facial symmetry appears normal, ca1 15:12 14:37 Reassessment: Patient appears in no apparent distress at this time. Patient is ca1 alert, oriented x 3, equal unlabored respirations, skin warm/dry/pink. ca1 17:23 14:37 Reassessment: Patient appears in no apparent distress at this time. Patient ca1 and/or family updated on plan of care and expected duration. Pain level reassessed. ca1
[2019-03-30] MEDS ORDERED: MAGNESIUM SULFATE 1 gm IVPB 1 GM/100 ML BAG IV ONE (15:47)
[2019-03-30] MEDS ORDERED: D50W 25 GM/50 ML SYRINGE IV PRN (15:57)
[2019-03-30] MEDS ORDERED: GLUCAGON 1 MG/VIAL IM PRN (15:57)
[2019-03-30] MEDS ORDERED: MORPHINE 2 MG/ML SYR ONE (16:01)
[2019-03-30] MEDS ORDERED: NS KCL 20MEQ 1,000 ML IV ONE (16:01)
[2019-03-30] MEDS ORDERED: ONDANSETRON 4 MG/2 ML VIAL ONE (16:01)
[2019-03-30 16:04] LABS: Barbiturates NEGATIVE (NEGATIVE); Benzodiazepines NEGATIVE (NEGATIVE); Cocaine NEGATIVE (NEGATIVE); METHAMPHETAM NEGATIVE (NEGATIVE); Methadone NEGATIVE (NEGATIVE); Opiates NEGATIVE (NEGATIVE); Phencyclidine NEGATIVE (NEGATIVE); THC Cannibis NEGATIVE (NEGATIVE)
--- NOTE | 2019-03-30 16:12 | RAD REPORT ---
EXAM DESCRIPTION: RAD - Chest Single View - 03/30/2019 4:07 pm CLINICAL HISTORY: altered mental status Chest pain. COMPARISON: <Comparisons> FINDINGS: Portable technique limits examination quality. The lungs are grossly clear. The heart is normal in size. No displaced fractures.Hardware plate is se en in the cervical spine. IMPRESSION: No acute intrathoracic process suspected.
[2019-03-30] MEDS: INSULIN -REGULAR HUMAN 50 UNIT/0.5 ML ML SQ SCH ×2 (16:30→20:53)
[2019-03-30 18:09] LABS: Urine Blood 3+ (NEG); Urine Glucose NEGATIVE (NEG); Urine Protein 2+ (NEG); Urine Specific Gravity 1.015 (1.005-1.030)
--- NOTE | 2019-03-30 18:26 | P.HP ---
Certification for Inpatient With expected LOS: <2 Midnights Patient will require the following post-hospital care: None Practitioner: I am a practitioner with admitting privileges, knowledge of patient current condition, hospital course, and medical plan of care. Services: Services provided to patient in accordance with Admission requirements found in Title 42 Section 412.3 of the Code of Federal Regulations Patient History Date of Service: 03/30/19 Reason for admission: Altered mental status History of Present Illness: Patient is 63 years of age with a history of liver cirrhosis was found with altered mental status according to the sister he may have been in his heart for 2 3 days was found by the neighbor in his own urine and feces he does not recall the episode he is now alert responsive cooperative denies any fever chills cough sputum or hemoptysis is back to his baseline he does take lactulose Allergies No Known Drug Allergies Allergy (Unverified 05/22/15 16:43) Unknown No Known Allergies Allergy (Uncoded 03/29/18 16:57) Unknown Home Medications: Acetaminophen with Codeine [Acetaminophen-Cod #4 Tablet] 1 each PO Q6HP PRN 09/08 Gabapentin 300 mg PO TID 05/06/15 Lisinopril [Prinivil*] 20 mg PO DAILY 05/06/15 Linagliptin [Tradjenta] 5 PO 12/09/18 - Past Medical/Surgical History Diabetic: Yes -: HEPATITIS -: HTN -: DM -: Cirrhosis of the liver -: TONSILLECTOMY- 10 DAYS AGO 04/26/15 -: BACK/NECK SX UNKNOWN OF YEAR - Family History Father -: Lung disease Notes: unknown Mother Notes: unknown - Social History Alcohol use: No CD- Drugs: No Caffeine use: No Review of Systems 10-point ROS is otherwise unremarkable General: Weakness Physical Examination - Vital Signs Temperature: 98.1 F Blood Pressure: 127/82 Pulse: 86 Respirations: 17 Pulse Ox (%): 99 - Physical Exam General: Alert, Oriented x3 Neck: Supple Respiratory: Clear to auscultation bilaterally Cardiovascular: No edema, Regular rate/rhythm, Edema Gastrointestinal: Normal bowel sounds, Soft and benign Musculoskeletal: No clubbing, No swelling Integumentary: No rashes, No breakdown - Studies Laboratory Data (last 24 hrs) 03/30/19 14:28: PT 18.0 H, INR 1.55 03/30/19 14:28: WBC 4.5, Hgb 10.5 L, Hct 31.1 L, Plt Count 63 L 03/30/19 14:28: Sodium 139, Potassium 2.7 L*, BUN 22 H, Creatinine 1.44 H, Glucose 118 H, Total Bilirubin 2.9 H, AST 212 H, ALT 64, Alkaline Phosphatase 142 H Assessment and Plan - Problems (Diagnosis) (1) Encephalopathy Current Visit: No Status: Acute Plan: Patient is 63 years of age admitted with altered mental status most likely hepatic encephalopathy as back to his baseline compliant with this therapy does not drink alcohol patient has abnormal liver function tests and renal insufficiency CBCs normal no evidence of urinary tract infection head CT chest x -ray is normal plan to replace his potassium IV fluids lactulose possible discharge tomorrow will need to verify his home medication he should be on low- dose of spironolactone - Advance Directives Does patient have a Living Will: No Does patient have a Durable POA for Healthcare: No
[2019-03-30] MEDS: D5.45NS W/KCL 20MEQ 1,000 ML IV SCH (18:41)
[2019-03-30 23:19] VITALS: BMI 25.8
[2019-03-31] MEDS: D5.45NS W/KCL 20MEQ 1,000 ML IV SCH ×3 (02:00→23:26)
[2019-03-31] MEDS: HYDROCODONE/APAP 7.5/325 MG TAB PO SCH ×3 (06:23→20:06)
[2019-03-31 06:55] LABS: Protime INR 1.57
[2019-03-31 06:56] LABS: Basophils % 0.2 % (0-1.3); Hematocrit 28.6 % (39.6-49.0); Lymphocytes % 24.4 % (15.3-44.8); MPV 9.3 fL (7.6-11.3); Monocytes % 11.3 % (3.3-12.3); RBC Red Blood Cell Count 2.73 M/uL (4.33-5.43)
[2019-03-31] MEDS: INSULIN -REGULAR HUMAN 50 UNIT/0.5 ML ML SQ SCH ×4 (07:30→20:48)
[2019-03-31 07:35] LABS: Albumin 2.4 g/dL (3.4-5.0); Bilirubin Total 2.4 mg/dL (0.2-1.0); Protein, Total 6.5 g/dL (6.4-8.2)
[2019-03-31 07:36] LABS: Potassium 2.9 mmol/L (3.5-5.1)
--- NOTE | 2019-03-31 08:44 | EKG ---
Test Date: 2019-03-30 Test Time: 13:42:11 Division Service Manager: CHEY MEASUREMENT RESULTS: Intervals: Rate: 90 VT: 194 QRSD: 98 QT: 424 QTc: 518 [place]: P: 31 VT: 194 QRS: -43 T: -14 INTERPRETIVE STATEMENTS: Normal sinus rhythm Left axis deviation Left ventricular hypertrophy with repolarization abnormality Prolonged QT Abnormal ECG Compared to ECG 12/09/2018 06:31:24 Left ventricular hypertrophy now present Early repolarization now present Ventricular premature complex(es) no longer present ST (T wave) deviation no longer present Electronically Signed On 03-31-19 08:42:32 CDT by Preston Durbin
[2019-03-31] MEDS: CEFTRIAXONE/SWI 1gm 1 GM/10 ML SYR IV SCH (10:17)
--- NOTE | 2019-03-31 11:51 | P.PN ---
Subjective Date of Service: 03/31/19 Chief Complaint: Altered mental status No changes still altered disoriented Review of Systems is unable to be obtained Physical Examination - Vital Signs Temperature: 97.7 F Blood Pressure: 131/70 Pulse: 68 Respirations: 15 Pulse Ox (%): 99 - Physical Exam General: Delirious HEENT: Atraumatic Neck: Supple Respiratory: Clear to auscultation bilaterally Cardiovascular: No edema, Normal pulses - Studies Laboratory Data (last 24 hrs) 03/30/19 14:28: PT 18.0 H, INR 1.55 03/30/19 14:28: WBC 4.5, Hgb 10.5 L, Hct 31.1 L, Plt Count 63 L 03/30/19 14:28: Sodium 139, Potassium 2.7 L*, BUN 22 H, Creatinine 1.44 H, Glucose 118 H, Total Bilirubin 2.9 H, AST 212 H, ALT 64, Alkaline Phosphatase 142 H Assessment & Plan - Problems (Diagnosis) (1) Encephalopathy Current Visit: No Status: Acute Plan: Patient admitted with altered mental status presumed hepatic encephalopathy he still altered patient is hypokalemic ammonia level is low cultures still pending vital signs stable continue to monitor
[2019-03-31] MEDS: KCL 20 MEQ/100 mL IVPB 20 MEQ/100 ML BAG IV SCH ×3 (13:25→17:00)
[2019-03-31] MEDS ORDERED: NA CHLORIDE 0.9% 250 ML IV PRN (15:21)
[2019-03-31] MEDS ORDERED: POTASSIUM CL 60 MEQ in NA CHLORIDE 0.9% 500 ML IV SCH (18:00)
[2019-03-31] MEDS ORDERED: POTASSIUM 25 MEQ EFFERV TAB PO ONE ×3 (19:16→21:00)
[2019-04-01] MEDS: INSULIN -REGULAR HUMAN 50 UNIT/0.5 ML ML SQ SCH ×4 (07:30→21:00)
[2019-04-01] MEDS: HYDROCODONE/APAP 7.5/325 MG TAB PO SCH ×4 (08:20→22:07)
[2019-04-01] MEDS: D5.45NS W/KCL 20MEQ 1,000 ML IV SCH ×2 (08:25→18:51)
[2019-04-01] MEDS: CEFTRIAXONE/SWI 1gm 1 GM/10 ML SYR IV SCH (08:28)
--- NOTE | 2019-04-01 18:44 | RAD REPORT ---
EXAM DESCRIPTION: MRI - Brain Wo Cont - 04/01/2019 6:35 pm CLINICAL HISTORY: Slurred speech COMPARISON: March [address] TECHNIQUE: Axial, sagittal, and coronal magnetic images of the brain were obtained. Contrast was not requested FINDINGS: Mild signal within periventricular, deep and subcortical white matter probably ischemic ch anges secondary to small vessel disease Diffusion-weighted/ADC mapping does not reveal evidence of acute infarction. The ventricles are normal caliber. An extra-axial fluid collection is not present The sinuses and mastoids are clear. IMPRESSION: No acute intracranial abnormality
--- NOTE | 2019-04-01 22:10 | PN ---
Date of Progress Note: 04/01/2019 Subjective: The patient is seen and examined. Chart reviewed and case discussed with RN. The patie nt working with PT, still needs assist ambulating with a walker. The patient still does not seem to be back to his baseline according to the sister. Medications: List reviewed. Physical Examination: Vital Signs: Temperature 97.4, heart rate 74, blood pressure 141/81, respirations 17, O2 100% on betrin m air. General: Awake, alert, oriented x3. Mild distress, ill-appearing male. CV: S1, S2. Peripheral pulses present. Respiratory: Moving air well bilaterally. Abdomen: Soft. Mild distention. No rebound or guarding. Extremities: No clubbing, cyanosis. The patient does have peripheral edema bilaterally. Neuro: Cranial nerves 2 through 12 intact grossly. The patient has generalized weakness, but no foc al neurological deficit. Speech is slightly abnormal. Laboratory Data: Labs are pending. Blood cultures, no growth to date. Assessment And Plan: A 63-year-old male with: 1.Acute hepatic encephalopathy. The patient was found down, has significantly improved, however, no t back to baseline. We will continue to monitor. Ammonia level is normal. Cultures are pending. N o acute source of infection. UA is negative. Chest x-ray did not show any opacities. 2.Abnormal speech, unclear etiology, may be related to the patient's hepatic encephalopathy. We paul l obtain MRI of the brain. Head CT scan was negative for any bleed or mass lesions. Consult Neurolo gy. Currently, no Neurology is on-call. They will be available tomorrow. 3.Hypokalemia. We will replace and monitor. 4.Hepatitis C, chronic without coma. The patient does have elevated liver enzymes. 5.Diabetes mellitus type 2, non-insulin requiring. We will continue with sliding scale insulin. Mo nitor Accu-Cheks. 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 Add spironolactone, fluid restriction, and rifax imin. 7.Acute kidney injury. Creatinine level was elevated upon admission. Labs not obtained today. We will repeat BMP in a.m. 8.Severe protein-calorie malnutrition. Albumin is 2.4. 9.Hyperchromic microcytic anemia. We will check vitamin B12 level and folate level. The patient an d family state he does not consume alcohol. Plan: Continue PT. MRI of the brain to rule out CVA. Neuro eval. The patient will need nursing ho nd placement. He is not safe for discharge home. /OSMANY Voice ID: [id number] Report ID: [id number]
[2019-04-02] MEDS: D5.45NS W/KCL 20MEQ 1,000 ML IV SCH (05:16)
[2019-04-02 06:36] LABS: Absolute Lymphocytes (CBC) 1.1 K/uL (0.7-4.9); Basophils % 0.3 % (0-1.3); Eosinophils % 2.9 % (0-4.4); Hematocrit 30.2 % (39.6-49.0); Lymphocytes % 24.5 % (15.3-44.8); Monocytes % 10.7 % (3.3-12.3); RBC Red Blood Cell Count 2.82 M/uL (4.33-5.43)
[2019-04-02] MEDS: INSULIN -REGULAR HUMAN 50 UNIT/0.5 ML ML SQ SCH ×4 (07:30→19:54)
[2019-04-02 07:32] LABS: ALT/SGPT 64 U/L (12-78); AST/SGOT 157 U/L (15-37); Albumin 2.3 g/dL (3.4-5.0); Alkaline Phosphatase 141 U/L (45-117); BUN Blood Urea Nitrogen 17 mg/dL (7-18); Bicarbonate 22 mmol/L (21-32); Bilirubin Total 1.8 mg/dL (0.2-1.0); Folic Acid, (Folate) 16.1 ng/mL (3.1-17.5); Glucose Level 109 mg/dL (74-106); Potassium 3.8 mmol/L (3.5-5.1); Protein, Total 6.8 g/dL (6.4-8.2); Sodium Level 138 mmol/L (136-145)
[2019-04-02] MEDS: HYDROCODONE/APAP 7.5/325 MG TAB PO SCH ×3 (08:35→20:31)
[2019-04-02] MEDS: CEFTRIAXONE/SWI 1gm 1 GM/10 ML SYR IV SCH (08:35)
[2019-04-02 08:47] LABS: Platelet Estimate DECR; Urine White Blood Cell Casts OK
[2019-04-02 08:48] LABS: Anisocytosis 2+; Blood Morphology Comment NOTED (NOT SEEN); Macrocytosis 1+
[2019-04-02] MEDS: Rifaximin 550 MG Tab PO SCH ×2 (15:52→20:32)
--- NOTE | 2019-04-02 19:32 | PN ---
Date of Progress Note: 04/02/2019 Subjective: The patient was seen and examined. Chart reviewed and case discussed with RN and Dr. Ronald pereira. Family at the bedside. The patient seems to have more word finding difficulty and mental st atus seems to be somewhat diminished today compared to yesterday. Otherwise, patient does not have a ny complaints. Working well with physical therapy, however, requiring assistance. Medications: List reviewed. Physical Examination: Vital Signs: Temperature 97.7, heart rate 62, blood pressure 158/88, respirations 16, O2 100% on bertin m air. GENERAL: Awake, alert, oriented x2, not in any acute distress. CV: S1, S2. Regular rate and rhythm. Peripheral pulses present. Respiratory: Moving air well bilaterally. No wheezing. Gastrointestinal: Abdomen is soft, nontender, nondistended. Positive bowel sounds. Extremities: No clubbing or cyanosis. The patient has diffuse peripheral edema. Neurologic: Nonfocal. The patient does seem to have word-finding difficulty. Laboratory Data: Sodium 138, potassium 3.8, chloride 110, CO2 22, BUN 17, creatinine 1.25, glucose 1 09, calcium 7.5, AST 157, ALT 64, ammonia 61, albumin 2.3. Vitamin B12 level greater than 2000. Fol ate 16.1. WBC 4.5, hemoglobin and hematocrit 10.2 and 30.2, platelets 53, neutrophils 61%. Blood cu ltures, no growth to date. Brain MRI shows no acute cerebrovascular accident. Assessment: A 63-year-old male with: 1.Hepatic encephalopathy, improved, not back to baseline per family. MRI of the brain is negative. Ammonia level is elevated today. We will switch lactulose to scheduled instead of p.r.n. 2.Abnormal speech, unclear etiology, may be related to hepatic encephalopathy. MRI is negative. Ne urology has been consulted. Dr. Vieira recommends EEG. 3.Hypokalemia, replace and monitor. 4.Hepatitis C, chronic without coma. The patient needs to see GI as an outpatient. 5.Diabetes mellitus type 2, non-insulin requiring. We will continue sliding scale insulin. Monitor Accu-Cheks. 6.Cirrhosis of liver secondary to hepatitis C. Continue with Aldactone, fluid restriction, and swit ch Rocephin to rifaximin. 7.Acute kidney injury. Creatinine is now normalized. We will continue to monitor. 8.Severe protein-calorie malnutrition. Albumin is 2.3. 9.Hypochromic microcytic anemia. Vitamin B12 and folate levels are normal. Plan: Discharge to nursing facility once cleared by Neurology. /OSMANY Voice ID: [id number] Report ID: [id number]
[2019-04-02] MEDS: LACTULOSE 20 GM/30 ML UCUP PO SCH (20:30)
[2019-04-02] MEDS ORDERED: POTASSIUM 25 MEQ EFFERV TAB PO ONE (21:00)
--- NOTE | 2019-04-03 02:15 | CON ---
Reason For Consultation: Consultation called by Dr. George because of altered mental status. History Of Present Illness: Mr. Farrar is a 63-year-old right-handed patient with hepatiti s-related liver failure, who chronically takes lactulose because of elevated ammonia. The patient is admitted to [facility] on 03/30/2019 after being found by a neighbor. He was down in his h ouse 2 days, found in urine and feces. The patient is unable to give an account of what happened. A t [facility], his blood work was remarkable for severe hypokalemia of 2.7, elevated AST of 2 12, mildly elevated blood sugars, and elevated creatinine of 1.44, consistent with dehydration. Ammo cruz level was however normal at 26. His toxicology screen was negative. Urinalysis showed 2+ protei n and blood. White blood cell count was normal. His CT scan and brain MRI were unremarkable for any acute ischemic or hemorrhagic change. His brain MRI identified mild small-vessel ischemic disease. He was treated with hydration and recovered towards baseline level of cognitive functioning. At [facility] point, the patient is sitting in bed, had lunch, and was very communicative. However, he did confa bulate making stories up about where he was and was not clear about the actual city, the date, and day of the week. His chest x-ray did not reveal an acute cardiopulmonary issue and his EKG showed a normal sinus rhythm with left axis deviation, left ventricular hypertrophy, prolonged QT. Past Medical History: As mentioned, he has hepatitis-related cirrhosis, hypertension, htf-hmltniw-sf pendent diabetes mellitus. Surgical History: Involving neck, back, and ankle. Allergies: NO KNOWN DRUG ALLERGIES. Home Medications: [place] 7.5/325 three times hours daily, gabapentin 600 mg 3 times daily, losartan d aily, Tradjenta 5 mg daily, lactulose daily, Xifaxan 550 mg daily. Family History: Noncontributory. Social History: The patient denies taking alcohol. Does smoke tobacco, cigarettes. Denies using IV drugs. Review of Systems: Prior to this event, he denies any recent fevers, chills, nausea, vomiting, myalgias, arthralgias, he adache, weight change, rash, or psychiatric complaints. Physical Examination: Vital Signs: Blood pressure 139 up to 158/83-88, pulse 60-70, respiratory rate 14-18, temperature 97 .7, oxygen saturation 100% on room air. Weight 180 pounds, height 5 feet 10 inches. General: Mr. Farrar is sitting in bed, in no acute distress. His IV going. HEENT: He is normocephalic, atraumatic. His sclerae are anicteric. Oropharynx is moist. Neck: Supple. Chest: Clear. Heart: Regular. Extremities: Show no significant edema, cyanosis, or clubbing. Neurological: He is alert and oriented to person and to situation, but not to place, time, date and not to the city. He does follow simple commands without difficulty. Cranial nerves reveal no defici ts focally on 2 through 12. Motor examination, the upper extremities show no focal weakness proximal ly and distally. Sensory examination shows stocking-glove loss. Reflexes depressed, but symmetric i n the upper and lower extremities. Coordination intact, but slow and gait is steady on his feet. Ne eds to be fully ambulated with physical therapy. Assessment: Mr. Farrar is a 63-year-old patient with unclear etiology for his now resolving altered mental status. He does have a history of cirrhotic liver disease potentially as a contributing facto r, but his ammonia level was normal. He had mild dehydration. His brain MRI does not show any acute ischemic or hemorrhagic change. He does have an EEG pending. Plan: 1.Follow up the EEG. 2.Continue with hydration as indicated and managed by primary team. 3.Also recommend aspirin 81 mg daily with the possibility although less likely of a transient ischem ic attack as a contributing factor. 4.May have a lipid panel. 5.The patient may be discharged home and follow up with Dr. Vieira in 1 month in clinic. SONIA/OSMANY Voice ID: [id number] Report ID: [id number]
[2019-04-03 04:42] LABS: Albumin 2.6 g/dL (3.4-5.0); Bilirubin Total 1.6 mg/dL (0.2-1.0); Potassium 4.4 mmol/L (3.5-5.1); Protein, Total 7.2 g/dL (6.4-8.2)
[2019-04-03] MEDS: INSULIN -REGULAR HUMAN 50 UNIT/0.5 ML ML SQ SCH ×2 (07:16→11:14)
[2019-04-03 07:58] VITALS: O2SAT 96
[2019-04-03] MEDS: LACTULOSE 20 GM/30 ML UCUP PO SCH (08:04)
[2019-04-03] MEDS: Rifaximin 550 MG Tab PO SCH (08:04)
[2019-04-03] MEDS: HYDROCODONE/APAP 7.5/325 MG TAB PO SCH (08:04)
[2019-04-03] MEDS ORDERED: LOSARTAN/HCTZ 50-12.5 PO SCH (09:00)
[2019-04-03] MEDS ORDERED: LORazepam 2 MG/ML VIAL IV ONE (10:19)
[2019-04-03 12:42] VITALS: BP 146/69; TEMP 98.9
[2019-04-03] MEDS ORDERED: SPIRONOLACTONE 25 MG TABLET PO SCH (14:25)
--- NOTE | 2019-04-04 14:57 | DS ---
Date of Discharge: 04/03/2019 Consultants: Dr. Vieira with Neurology. Procedures: Electroencephalogram. Admitting Diagnoses: 1. Acute hepatic encephalopathy. 2. Chronic liver disease with cirrhosis. 3. Chronic hepatitis C without coma. 4. Chronic pain syndrome. 5. Essential hypertension. 6. Diabetes mellitus type 2 ges-[id number]-[id number] with hyperglycemia. Discharge Diagnoses: 1. Acute hepatic encephalopathy, resolved. 2. Abnormal speech, possible transient ischemic attack, cerebrovascular accident ruled out. 3. Hypokalemia, replaced. 4. Hepatitis C, chronic without coma. 5. Liver cirrhosis secondary to hep C. 6. Diabetes mellitus type 2, wbd-wrmtakp-eoboouccp with hyperglycemia. 7. Acute kidney injury, resolved. 8. Severe protein-calorie malnutrition. 9. Hypochromic microcytic anemia. H and H are stable. 10. Chronic pain syndrome, on narcotics and gabapentin. Hospital Course: The patient is a 63-year-old who was found down for several days, covered in urine and feces, brought into the ER with altered mental status. This was thought to be secondary to his liver dysfunction. His ammonia level however was normal. CT scan of the head was done, which did not show any significant changes. There was no bleed or mass effect. He did have some acute kidney injury, which was corrected. His electrolytes were also corrected. He had severe hypokalemia. Patient's liver enzymes were elevated, which is likely secondary to his chronic hepatitis C. The patient does follow with Dr. Lares as an outpatient. His UDS was negative including acetaminophen level. Cultures did not grow any bacteria. MRI of the brain was done due to abnormal speech and altered mental status. CVA was ruled out. EEG was also done per Dr. Vieira's request with Neurology. He felt that this may be a TIA- recommended aspirin. EEG was done to rule out seizure-type activity. He did not have any further episodes of altered mental status. His ammonia level did fluctuate. He was started on medications for his liver cirrhosis including spironolactone, rifaximin and scheduled lactulose. The patient was then doing well. He is not safe to discharge home due to the condition he was found in and this has occurred previously as well. Therefore, he was referred to halfway. He was discharged once accepted. Medications: As per medication reconciliation list. Followup: Follow up with primary care physician in 2-3 days. Follow up with neurologist, Dr. Vieira in 2 weeks. Follow up with GI, Dr. Lares in 2 weeks. Return to ER for worsening condition. Diet: Diabetic 1500 mL fluid and 2 g sodium restriction. Activity and fall precautions. Physical Examination: General: Awake, alert, oriented, no acute distress. CV: S1, S2. Respiratory: Moving air well bilaterally. Abdomen: Abdomen soft, nontender, nondistended. Positive bowel sounds. Extremities: No clubbing or cyanosis. The patient has 2+ edema bilaterally. Neurologic: Nonfocal. Total time spent discharging patient was 38 minutes. /OSMANY Voice ID: [id number] Report ID: [id number]
== END 2019-04-03 13:33 | DRG 441 ==
LOC: SUPCPDRO 13:25 → ER 13:25 → ERHOLD 15:36 → 4TH 17:50 → OBSVTOIN 04-01 16:45
PROVIDERS: ADMIT Internal Medicine Sleep Medicine; ATTEND Internal Medicine Sleep Medicine
DX: K72.00 Acute and subacute hepatic failure without coma (principal); E43 Unspecified severe protein-calorie malnutrition; G45.9 Transient cerebral ischemic attack, unspecified; N17.9 Acute kidney failure, unspecified; E87.6 Hypokalemia; B18.2 Chronic viral hepatitis C; K74.60 Unspecified cirrhosis of liver; E11.65 Type 2 diabetes mellitus with hyperglycemia; Z68.25 Body mass index [BMI] 25.0-25.9, adult; D50.9 Iron deficiency anemia, unspecified; G89.4 Chronic pain syndrome
CPT/HCPCS: 36415; 51702; 70450; 70551; 71045; 80053; 80307; 80320; 80329; 81003; 82140; 82607; 82746; 82962; 83735; 84132; 85025; 85610; 87040; 93005; 94760; 95816; 96361; 96365; 96366; 96367; 96368; 96375; 97110; 97116; 97162; 97530; 99285; G0378; J0696; J2270; J2405; J3475; J7030

== ENCOUNTER 2019-08-04 12:03 | Emergency (ER) | payer OTHER ==
[2019-08-04] MEDS ORDERED: LIDOCAINE 1% W/EPI 1:100,000 MDV 20 ML VIAL ONE (12:28)
[2019-08-04] MEDS ORDERED: NA CHLORIDE 0.9% 1,000 ML ONE (12:28)
[2019-08-04] MEDS ORDERED: MIDAZOLAM HCL 2 MG/2 ML INJ ONE (12:33)
[2019-08-04] MEDS ORDERED: LORazepam 2 MG/ML VIAL ONE (12:47)
[2019-08-04 13:00] LABS: Absolute Lymphocytes (CBC) 0.9 K/uL (0.7-4.9); Basophils % 0.6 % (0-1.3); Hematocrit 32.7 % (39.6-49.0); Lymphocytes % 17.4 % (15.3-44.8); MPV 8.5 fL (7.6-11.3); RBC Red Blood Cell Count 3.33 M/uL (4.33-5.43)
--- NOTE | 2019-08-04 13:02 | RAD REPORT ---
EXAM DESCRIPTION: RAD - Wrist Right 3 View - 08/04/2019 12:22 pm CLINICAL HISTORY: Right wrist pain status post injury FINDINGS: No fracture or dislocation is seen. If the patient continues to have symptoms to suggest a n occult fracture then a followup plain film series in 7 days would be recommended.
[2019-08-04 13:17] LABS: Potassium 3.8 mmol/L (3.5-5.1)
--- NOTE | 2019-08-04 13:55 | RAD REPORT ---
EXAM DESCRIPTION: CT - Head C Spine Cap Wo Con - 08/04/2019 1:37 pm TECHNIQUE: Computed axial tomography of the head and cervical spine was obtained. Coronal and sagitt al reconstruction was performed Computed axial tomography of the chest, abdomen and pelvis was obtained. Contrast was not requested. All CT scans are performed using dose optimization technique as appropriate and may include automated exposure control or mA/KV adjustment according to patient size. CLINICAL HISTORY: Head and neck injury with chest and abdominal pain status post fall COMPARISON: March [address] abdomen FINDINGS: Images are degraded by patient motion artifact An intracranial bleed is not seen. The ventricles are normal in caliber. An extra-axial fluid collection is not noted. . Fluid within the sinuses/mastoids is not seen. A large amount of patient motion limits evaluation of cervical spine. A cervical fracture is not seen . No dislocation is noted. Anterior fusion involves C5 through C7 The evaluation of mediastinum, jaxon, vessels, solid organs and bowel are limited secondary to the lac k of contrast administration. A mediastinal hematoma is not noted. A pleural effusion is not seen. A lung contusion is not present. The liver,spleen, pancreas, adrenals,kidneys and bladder appear do not demonstrate a traumatic injury A cirrhotic liver. Small nonobstructing right renal calculi IMPRESSION: Limited examination secondary to patient motion artifact 1. No acute intracranial abnormality is seen. 2. A cervical fracture is not visualized. If the patient continues have symptoms to suggest intracran ial/spinal cord pathology MRI be recommended 3. No traumatic abnormality involving the chest/abdomen/pelvis.
[2019-08-04] MEDS ORDERED: DERMABOND SKIN ADHESIVE TOP ONE (14:04)
[2019-08-04] MEDS ORDERED: TETANUS & DIPHTHERIA TOX,ADULT 0.5 ML VIAL ONE (14:48)
--- NOTE | 2019-08-04 15:06 | EDPHYS ---
Physician Documentation [facility] Name: Christopher Farrar Age: 64 yrs Sex: Male : 1955 Arrival Date: 08/04/2019 Time: 12:09 Bed 3 Private MD: ED Physician Latha Parra HPI: 08/04 14:11 This 64 yrs old Male presents to ER via EMS with complaints of Laceration To ma2 Head. 14:11 The laceration(s) is(are) located on the face. Onset: The symptoms/episode ma2 began/occurred gradually, 1 day(s) ago. Associated signs and symptoms: Pertinent positives: Pertinent negatives: deformity, dizziness, heavy bleeding, numbness distal to injury, suspected foreign body. Associated signs and symptoms: Pertinent positives: Pertinent negatives:. The patient has not experienced similar symptoms in the past. Historical: - Allergies: 12:15 No Known Allergies; sg - Home Meds: 13:29 bisacodyl 10 mg Rectal supp 1 suppository once daily [Active]; Enulose 10 gram/15 mL sg oral soln [Active]; fentanyl 50 mcg/hr Topical pt72 1 patch every 72 hours [Active]; hydrochlorothiazide 12.5 mg Oral cap 1 cap once daily [Active]; hydrocodone-acetaminophen 10-325 mg Oral tab 1 tab every 4 hours [Active]; hyoscyamine sulfate 0.125 mg SL subl daily [Active]; Lasix 40 mg Oral tab 1 tab once daily [Active]; Lomotil 2.5-0.025 mg oral tab 2 tabs once daily [Active]; lorazepam 1 mg Oral tab 1 tab once daily [Active]; Losartan Potassium 50 mg 1 tab [Active]; morphine 20 mg/5 mL (4 mg/mL) Oral soln 0.5 mL 1 hour for Pain [Active]; neomycin 500 mg Oral tab 1 tabs twice daily [Active]; promethazine 25 mg Oral tab 1 tab once daily [Active]; Rifampin 500 mg Oral 1 caps 2 times per day [Active]; - PMHx: 12:15 Diabetes - NIDDM; Hepatitis; Hypertension; [facility] [phone]; sg 13:29 AMS; Hypokalemia; Cirrhosis; Hepatic Failure; sg - PSHx: 12:15 back; neck; left ankle; sg - Immunization history:: Adult Immunizations unknown, Last tetanus immunization: unknown. - Social history:: Smoking status: Patient/guardian denies using tobacco, Patient/guardian denies using alcohol, street drugs, The patient lives with family. - Ebola Screening: : Patient negative for fever greater than or equal to 101.5 degrees Fahrenheit, and additional compatible Ebola Virus Disease symptoms Patient denies exposure to infectious person Patient denies travel to an Ebola-affected area in the 21 days before illness onset No symptoms or risks identified at this time. - Family history:: not pertinent. ROS: 14:11 Unable to obtain ROS due to altered mental status, he has baseline ams . ma2 15:05 Constitutional: Negative for fever, chills, and weight loss. ma2 Exam: 14:11 Constitutional: This is a well developed, well nourished patient who is awake, alert, ma2 and in no acute distress. Head/Face: forehead lacweration 2 cm linear ENT: Nares patent. No nasal discharge, no septal abnormalities noted. Tympanic membranes are normal and external auditory canals are clear. Oropharynx with no redness, swelling, or masses, exudates, or evidence of obstruction, uvula midline. Mucous membranes moist. Neck: Trachea midline, no thyromegaly or masses palpated, and no cervical lymphadenopathy. Supple, full range of motion without nuchal rigidity, or vertebral point tenderness. No Meningismus. Chest/axilla: Normal chest wall appearance and motion. Nontender with no deformity. No lesions are appreciated. Cardiovascular: Regular rate and rhythm with a normal S1 and S2. No gallops, murmurs, or rubs. Normal PMI, no JVD. No pulse deficits. Respiratory: Lungs have equal breath sounds bilaterally, clear to auscultation and percussion. No rales, rhonchi or wheezes noted. No increased work of breathing, no retractions or nasal flaring. Abdomen/GI: Soft, non-tender, with normal bowel sounds. No distension or tympany. No guarding or rebound. No evidence of tenderness throughout. Back: No spinal tenderness. No costovertebral tenderness. Full range of motion. MS/ Extremity: Pulses equal, no cyanosis. Neurovascular intact. Full, normal range of motion. Neuro: Awake and alert, GCS 15, oriented to person, place, time, and situation. Cranial nerves II-XII grossly intact. Motor strength 5/5 in all extremities. Sensory grossly intact. Cerebellar exam normal. Normal gait. Vital Signs: 12:12 BP 151 / 99; Pulse 73; Resp 17; Temp 97.7; Pulse Ox 100% on R/A; Pain 6/10; sg 14:12 BP 142 / 89; Pulse 77; Resp 17; Pulse Ox 100% on R/A; sg Laceration: 14:11 Wound Repair of 3cm ( 1.2in ) subcutaneous laceration to face. Distal ma2 neuro/vascular/tendon intact. Anesthesia: Local anesthetic administered with 2 mls of 1% lidocaine w/ Epi. Wound prep: Moderate cleansing. Skin closed with 1 6-0 Prolene using Dermabond. Dressed with Bacitracin. Patient tolerated well. MDM: 12:12 Patient medically screened. [facility] 14:11 Differential diagnosis: superficial laceration, head trauma. mo2 15:04 Data reviewed: vital signs, nurses notes. Counseling: I had a detailed discussion with ma2 the patient and/or guardian regarding: the historical points, exam findings, and any diagnostic results supporting the discharge/admit diagnosis, the presence of at least one elevated blood pressure reading (>120/80) during this emergency department visit, the need for outpatient follow up. Response to treatment: the patient's symptoms have markedly improved after treatment. 08/04 12:16 Order name: Basic Metabolic Panel; Complete Time: 13:35 ma2 08/04 12:16 Order name: CBC with Diff; Complete Time: 13:35 mo2 08/04 12:16 Order name: CT Traumagram (Head C Spine CAP wo con) [facility] 08/04 12:16 Order name: Creatinine for Radiology; Complete Time: 13:35 ma2 08/04 12:16 Order name: Type And Screen; Complete Time: 13:35 mo2 08/04 12:40 Order name: AMMONIA; Complete Time: 13:35 ma2 08/04 12:16 Order name: Labs collected and sent; Complete Time: 12:50 ma2 08/04 12:16 Order name: Wrist Right 3 View XRAY; Complete Time: 14:37 mo2 08/04 12:16 Order name: Prolene, Sutures; Complete Time: 14:51 ma2 08/04 12:16 Order name: Dressing - Wound; Complete Time: 13:00 mo2 08/04 12:16 Order name: Gloves, Sterile; Complete Time: 13:00 ma2 08/04 12:16 Order name: Setup Suture Tray; Complete Time: 13:00 ma2 Administered Medications: 13:10 Drug: Ativan 2 mg Route: IVP; Site: left antecubital; 13:40 Follow up: Response: No adverse reaction 13:40 Drug: NS 0.9% 1000 ml Route: IV; Rate: 1 bolus; Site: left antecubital; sg 14:45 Follow up: Response: No adverse reaction; IV Status: Completed infusion; IV Intake: sg 1000ml 14:20 Drug: Lidocaine-Epinephrine -1%: (1:100,000) 20 ml {Note: medication administered by ashlyn Lerma for suture repair.} Volume: 20 ml; Route: Infiltration; 14:40 Drug: Tetanus-Diphtheria Toxoid Adult 0.5 ml {User Acceptance Tester: [employer]. Exp: 02/28/2021. Lot #: [id number]. } Route: IM; Site: right deltoid; 14:59 Follow up: Response: No adverse reaction Disposition: 08/04/19 15:04 Discharged to Home. Impression: Laceration without foreign body of unspecified part of head - forehead. - Condition is Stable. - Discharge Instructions: Facial Laceration. - Medication Reconciliation Form, Thank You Letter, Antibiotic Education, Prescription Opioid Use form. - Follow up: Private Physician; When: Tomorrow; Reason: Continuance of care. Signatures: Dispatcher [employer] Pal Winchester RN RN sg Alzahri, Mohammad, MD MD ma2 Corrections: (The following items were deleted from the chart) 15:22 15:04 08/04/2019 15:04 Discharged to Home. Impression: Laceration without foreign body sg of unspecified part of head - forehead. Condition is Stable. Forms are Medication Reconciliation Form, Thank You Letter, Antibiotic Education, Prescription Opioid Use. Follow up: Private Physician; When: Tomorrow; Reason: Continuance of care. ma2
--- NOTE | 2019-08-04 15:06 | ER ---
Nurse's Notes [facility] Name: Christopher Farrar Age: 64 yrs Sex: Male : 1955 Arrival Date: 08/04/2019 Time: 12:09 Bed 3 Private MD: Diagnosis: Laceration without foreign body of unspecified part of head-forehead Presentation: 08/04 12:11 Presenting complaint: EMS states: pt was in restroom at [place] when he states he sg fell forward hitting his forehead on the sink in his bathroom. [place] reports that pt is normal aa\T\Ox2 with hx of hep C and other conditions, [place] staff report the patient to be DNAR but no paperwork sent with EMS at this time. Transition of care: patient was not received from another setting of care. Onset of symptoms was August 04, 2019. Risk Assessment: Do you want to hurt yourself or someone else? Patient reports no desire to harm self or others. Initial Sepsis Screen: Does the patient meet any 2 criteria? No. Patient's initial sepsis screen is negative. Does the patient have a suspected source of infection? No. Patient's initial sepsis screen is negative. Care prior to arrival: Bleeding of injury controlled. Injury dressed. Mechanism of Injury: Fall from standing position. 12:11 Method Of Arrival: EMS: [facility] 12:11 Acuity: GENE 2 sg Historical: - Allergies: 12:15 No Known Allergies; sg - Home Meds: 13:29 bisacodyl 10 mg Rectal supp 1 suppository once daily [Active]; Enulose 10 gram/15 mL sg oral soln [Active]; fentanyl 50 mcg/hr Topical pt72 1 patch every 72 hours [Active]; hydrochlorothiazide 12.5 mg Oral cap 1 cap once daily [Active]; hydrocodone-acetaminophen 10-325 mg Oral tab 1 tab every 4 hours [Active]; hyoscyamine sulfate 0.125 mg SL subl daily [Active]; Lasix 40 mg Oral tab 1 tab once daily [Active]; Lomotil 2.5-0.025 mg oral tab 2 tabs once daily [Active]; lorazepam 1 mg Oral tab 1 tab once daily [Active]; Losartan Potassium 50 mg 1 tab [Active]; morphine 20 mg/5 mL (4 mg/mL) Oral soln 0.5 mL 1 hour for Pain [Active]; neomycin 500 mg Oral tab 1 tabs twice daily [Active]; promethazine 25 mg Oral tab 1 tab once daily [Active]; Rifampin 500 mg Oral 1 caps 2 times per day [Active]; - PMHx: 12:15 Diabetes - NIDDM; Hepatitis; Hypertension; [facility] [phone]; sg 13:29 AMS; Hypokalemia; Cirrhosis; Hepatic Failure; sg - PSHx: 12:15 back; neck; left ankle; sg - Immunization history:: Adult Immunizations unknown, Last tetanus immunization: unknown. - Social history:: Smoking status: Patient/guardian denies using tobacco, Patient/guardian denies using alcohol, street drugs, The patient lives with family. - Ebola Screening: : Patient negative for fever greater than or equal to 101.5 degrees Fahrenheit, and additional compatible Ebola Virus Disease symptoms Patient denies exposure to infectious person Patient denies travel to an Ebola-affected area in the 21 days before illness onset No symptoms or risks identified at this time. - Family history:: not pertinent. Screenin:15 Abuse screen: Denies threats or abuse. Denies injuries from another. Nutritional sg screening: No deficits noted. Tuberculosis screening: No symptoms or risk factors identified. Never had TB. Fall Risk None identified. Assessment: 12:15 General: Appears in no apparent distress. slender, unkempt, well developed, well sg nourished, Behavior is calm, cooperative, appropriate for age. Neuro: Level of Consciousness is awake, obeys commands, confused, Oriented to person, situation, Blind Aide are equal bilaterally. Cardiovascular: Heart tones S1 S2 present Patient's skin is warm and dry. Chest pain is denied. Respiratory: Airway is patent Respiratory effort is even, unlabored, Respiratory pattern is regular, symmetrical. GI: Abdomen is round non-distended. : No signs and/or symptoms were reported regarding the genitourinary system. EENT: No signs and/or symptoms were reported regarding the EENT system. Derm: Skin is pale. Musculoskeletal: Circulation, motion, and sensation intact. Range of motion: intact in all extremities, Swelling present in forehead. Injury Description: Laceration sustained to forehead is clean, 0.5 to 2.5 cm long, not bleeding, a small amount of bleeding noted at this time. A dressing was applied. 13:15 Reassessment: Patient appears in no apparent distress at this time. Patient and/or sg family updated on plan of care and expected duration. Pain level reassessed. pt daughter at bedside at this time. 13:30 Reassessment: Patient appears in no apparent distress at this time. No changes from hb previously documented assessment. Patient and/or family updated on plan of care and expected duration. Pain level reassessed. Family remains at bedside. 15:00 Reassessment: Patient appears in no apparent distress at this time. pt assisted with sg the urinal, 400 mL output noted. Vital Signs: 12:12 BP 151 / 99; Pulse 73; Resp 17; Temp 97.7; Pulse Ox 100% on R/A; Pain 6/10; sg 14:12 BP 142 / 89; Pulse 77; Resp 17; Pulse Ox 100% on R/A; sg ED Course: 12:09 Patient arrived in ED. sg 12:10 Pal Spivey RN is Primary Nurse. sg 12:12 Latha Parra MD is Attending Physician. ma2 12:12 Triage completed. sg 12:15 Arm band placed on. sg 12:15 Patient has correct armband on for positive identification. Bed in low position. Call sg light in reach. Side rails up X2. Pulse ox on. NIBP on. Warm blanket given. Head of bed elevated. 12:22 Wrist Right 3 View XRAY In Process Unspecified. EDMS 12:45 Initial lab(s) drawn, by me, sent to lab. Inserted saline lock: 22 gauge in left dh3 antecubital area, using aseptic technique. Blood collected. 12:45 T\T\S collected, blood band applied to patient. dh3 12:57 ammonia drawn by me and sent to lab. dh3 13:32 CT completed. Pt tolerated procedure poorly. Patient moved back from CT. vm2 13:37 CT Traumagram (Head C Spine CAP wo con) In Process Unspecified. EDMS 15:00 Assisted with urinal. Cleaned of incontinence. Linen changed. sg 15:15 No provider procedures requiring assistance completed. Patient did not have IV access sg during this emergency room visit. Administered Medications: 13:10 Drug: Ativan 2 mg Route: IVP; Site: left antecubital; sg 13:40 Follow up: Response: No adverse reaction sg 13:40 Drug: NS 0.9% 1000 ml Route: IV; Rate: 1 bolus; Site: left antecubital; sg 14:45 Follow up: Response: No adverse reaction; IV Status: Completed infusion; IV Intake: sg 1000ml 14:20 Drug: Lidocaine-Epinephrine -1%: (1:100,000) 20 ml {Note: medication administered by for suture repair.} Volume: 20 ml; Route: Infiltration; 14:40 Drug: Tetanus-Diphtheria Toxoid Adult 0.5 ml {Branch Customer Service Representative: [employer]. Exp: sg 02/28/2021. Lot #: [id number]. } Route: IM; Site: right deltoid; 14:59 Follow up: Response: No adverse reaction sg Intake: 14:45 IV: 1000ml; Total: 1000ml. sg Outcome: 15:04 Discharge ordered by MD. cook 15:20 Discharged to home ambulatory. sg 15:20 Condition: stable 15:20 Discharge instructions given to patient, Instructed on discharge instructions, follow up and referral plans. medication usage, wound care, Demonstrated understanding of instructions, follow-up care, medications, wound care. 15:22 Patient left the ED. sg Signatures: Dispatcher [employer] EDMS Pal Spivey RN RN sg Baxter, Heather, RN RN Ann-Marie [facility] Latha Parra MD MD ma2
[2019-08-04 15:54] VITALS: TEMP 97.7; O2SAT 100
[2019-08-04 15:55] VITALS: BP 142/89
--- OUTSIDE RECORDS SUMMARY | 2019-08-05 07:08 | XMS REPORT ---
[...] Dosage System Date Date Zyrtec Allergy ND 30816293322 10 MG Orally Active 1 tablet Once a day Tradjenta ND 36948855515 5 MG Orally Active 1 tablet Once a day Tylenol # 3 NDC 0 30-500-15 MG Inactive 2 tablets Orally every 6 as needed hrs blood glucose NDC 0 n/s once a day December Active one test strip 2017 Cialis ND 39469710266 20 MG Orally Sep 28, Active 1 tablet once a day prn 2019 erectile dysfunction Gabapentin ND 23567558335 600MG Active TAKE TWO TABLETS BY MOUTH THREE TIMES DAILY Lancets Super NDC 0 n/s finger December Active one Thin stick once 2017 Hyzaar ND 03840400068 50-12.5 MG Active 1 tablet Orally Once a day Ferrous ND 14970446839 325 (65 Fe) MG Active 1 tablet Sulfate Orally Once a day [place] [facility] 56876150646 7.5-325 MG Active 1 tablet as Orally every 6 needed hrs Glucometer ND 0 n/s use as December Active not defined directed to 2017 08, check blood 2018 glucose twice a day Alcohol Prep ND 0 twice a day December Active as directed Pads 2017 Flonase [facility] 12801179437 50 MCG/ACT Active 1 spray in Nasally Once a each day nostril Singulair [facility] 09157625226 10 MG Orally Active 1 tablet in Once a day the evening Viagra [facility] 75728642444 100 MG Orally Inactive 1 tablet as Once a day needed Results No Known Results Summary Purpose eClinicalWorks Submission
--- OUTSIDE RECORDS SUMMARY | 2019-08-05 07:09 | XMS REPORT ---
[...] End Status Dosage System Date Date Singulair [facility] 60742883108 10 MG Orally Active 1 tablet in Once a day the evening Flonase [facility] 94262602314 50 MCG/ACT Active 1 spray in Nasally Once a each day nostril Alcohol Prep NDC 0 twice a day December Active as directed Pads 2017 Plain [facility] 43082231868 7.5-325 MG Active 1 tablet as Orally every 6 needed hrs Gabapentin [facility] 66293210860 600MG Active TAKE TWO TABLETS BY MOUTH THREE TIMES DAILY Cialis [facility] 83187642527 20 MG Orally Jun 18, Active 1 tablet once a day prn 2018 erectile dysfunction Hyzaar [facility] 89102907823 50-12.5 MG Active 1 tablet Orally Once a day Lancets Super NDC 0 n/s finger stick December Active one Thin once 2017 Tradjenta [facility] 96486184634 5 MG Orally Once Active 1 tablet a day blood glucose NDC 0 n/s once a day December Active one test strip 2017 Zyrtec Allergy [facility] 75626737307 10 MG Orally Active 1 tablet Once a day Ferrous [facility] 25689488781 325 (65 Fe) MG Active 1 tablet Sulfate Orally Once a day Results No Known Results Summary Purpose eClinicalWorks Submission
--- OUTSIDE RECORDS SUMMARY | 2019-08-05 07:09 | XMS REPORT ---
:1955 Author Organization eClinicalWorks Care Team Providers Name Role Phone Brwon, Na Provider Role Unavailable Allergies, Adverse Reactions, [...] Status Dosage System Date Date Cefdinir ND 98371774882 300 MG Orally Active as directed Tradjenta ND 49695510022 5 MG Orally Active 1 tablet Once a day Flonase ND 98607996520 50 MCG/ACT Active 1 spray in Nasally Once a each day nostril Lactulose ND 78816723952 20 GM/30ML Active 15 ml Orally Once a day Ferrous Sulfate ND 85127231003 325 (65 Fe) MG Active 1 tablet Orally Once a day blood glucose test ND 0 n/s once a December Active one strip day 2017 Gabapentin [facility] 97911126450 600MG Active TAKE TWO TABLETS BY MOUTH THREE TIMES DAILY Hyzaar [facility] 98042486700 50-12.5 MG Active 1 tablet Orally Once a day Cholecalciferol [facility] [address] 88020 UNIT Active 1 capsule Orally Zyrtec Allergy [facility] 60183126677 10 MG Orally Active 1 tablet Once a day Singulair [facility] 39777005355 10 MG Orally Active 1 tablet Once a day in the evening Rifaximin [facility] [address]-29 550 MG Orally Active 1 tablet Twice a day [place] [facility] 29205212260 7.5-325 MG Active 1 tablet Orally every 6 as needed hrs Alcohol Prep Pads ND 0 twice a day December Active as 2017 Lancets Super Thin NDC 0 n/s finger December Active one stick once 2017 Doxycycline [facility] 37504671312 100 MG Orally Active 1 capsule Hyclate Once a day Results No Known Results Summary Purpose eClinicalWorks Submission
--- OUTSIDE RECORDS SUMMARY | 2019-08-05 07:09 | XMS REPORT ---
:1955 Author Organization [facility] Address [address] [place] [address] Dr. Devine [address] [place] [id number] Care Team Providers Name Role Phone SHALOM [...] Value Reference Range Comments SCAN RESULT (test oacb=[id number]) BLOOD [id number] 12:01:00 Test Item Value Reference Range Comments CULTURE (BEAKER) (test yrip=8148) No growth in 5 days BLOOD [id number] 12:01:00 Test Item Value Reference Range Comments CULTURE (BEAKER) (test trjf=9132) No growth in 5 days KALPANA TITER AND [id number] 10:33:00 Test Item Value Reference Range Comments KALPANA TITER (BEAKER) (test xevq=9255) :160 [place] PATTERN (BEAKER) (test wllp=3174) Nucleolar HEPATITIS C PCR, [id number] 20:13:00 Test Item Value Reference Range Comments HCV NUMERIC RESULT (BEAKER) (test yest=1580) [id number] IU/mL <15 This test uses a Real-Time Polymerase Chain Reaction (RT-PCR) methodology and was performed using MARILEE Ampliprep/MARILEE TaqMan HCV test kit version 2.0 ( [employer]).Reportable range for this assay is 15 - 100,000, 000 IU per mL (1.18 - 8.00 Log IU/mL).POCT-GLUCOSE [id number] 13:03:00 Test Item Value Reference Range Comments POC-GLUCOSE METER (BEAKER) 266 mg/dL 70-110 TESTED AT [place] [address] [facility] (test eisu=1706) [facility] [address] URINALYSIS WITHOUT [id number] 12:46:00 Test Item Value Reference Range Comments COLOR (BEAKER) (test khci=630) Yellow CLARITY (BEAKER) (test wrws=440) Clear SPECIFIC GRAVITY UA (BEAKER) (test dtvk=785) 1.014 1.001-1.035 PH UA (BEAKER) (test opza=591) 6.5 5.0-8.0 PROTEIN UA (BEAKER) (test mzwa=286) 70 mg/dL Negative GLUCOSE UA (BEAKER) (test ycch=534) Negative Negative KETONES UA (BEAKER) (test qejd=214) 10 mg/dL Negative BILIRUBIN UA (BEAKER) (test hazt=748) Negative Negative BLOOD UA (BEAKER) (test umwf=752) Small Negative NITRITE UA (BEAKER) (test jzxv=196) Negative Negative LEUKOCYTE ESTERASE UA (BEAKER) (test gipp=602) Negative Negative UROBILINOGEN UA (BEAKER) (test qcxn=904) 0.2 mg/dL 0.2-1.0 SOURCE(BEAKER) (test wmzj=1331) SODIUM, RANDOM [id number] 12:32:00 Test Item Value Reference Range Comments SODIUM URINE (BEAKER) (test wihk=684) < meq/L Reference Range: No NormalsCHLORIDE, RANDOM [id number] 12:26:00 Test Item Value Reference Range Comments CHLORIDE URINE (BEAKER) (test tgrp=432) 20 meq/L Reference Range: No NormalsCREATININE, RANDOM [id number] 12:26:00 Test Item Value Reference Range Comments CREATININE URINE (BEAKER) (test ortx=992) 113.0 mg/dL Reference Range: No NormalsPOTASSIUM, RANDOM [id number] 12:26:00 Test Item Value Reference Range Comments POTASSIUM URINE (BEAKER) (test vvdd=221) 44.9 meq/L Reference Range: No NormalsPOCT-GLUCOSE [id number] 08:49:00 Test Item Value Reference Range Comments POC-GLUCOSE METER (BEAKER) 103 mg/dL 70-110 TESTED AT [address] (test btjd=4137) [facility] [address] VITAMIN D, [id number] 06:37:00 Test Item Value Reference Range Comments VITAMIN D 25-OH (BEAKER) (test uezp=1155) 9.9 ng/mL 6.6-49.9 Effective 07/05/2017: Reference Range ChangeNew: 6.6-49.9 ng/mL Previous: 13.0 -47.8 ng/mLRecommended Vitamin D Target Range: 30.0-40.0 ng/mLCOMPREHENSIVE METABOLIC [id number] 06:15:00 Test Item Value Reference Range Comments TOTAL PROTEIN (BEAKER) 5.9 gm/dL 6.0-8.3 (test nxts=420) ALBUMIN (BEAKER) (test 2.3 g/dL 3.5-5.0 pcnx=5412) ALKALINE PHOSPHATASE 127 U/L 40-150 (BEAKER) (test wkmo=510) BILIRUBIN TOTAL (BEAKER) 1.2 mg/dL 0.2-1.2 (test avjt=443) SODIUM (BEAKER) (test 139 meq/L 136-145 ptfu=267) POTASSIUM (BEAKER) (test 3.5 meq/L 3.5-5.1 ovvb=801) CHLORIDE (BEAKER) (test 117 meq/L 98-107 xnqq=835) CO2 (BEAKER) (test 16 meq/L 22-29 hvll=938) BLOOD UREA NITROGEN 21 mg/dL 7-21 (BEAKER) (test fgjn=677) CREATININE (BEAKER) (test 1.11 mg/dL 0.57-1.25 yoql=812) GLUCOSE RANDOM (BEAKER) 97 mg/dL 70-105 (test ktnx=840) CALCIUM (BEAKER) (test 7.8 mg/dL 8.4-10.2 uzvw=359) AST (SGOT) (BEAKER) (test 117 U/L 5-34 uixu=473) ALT (SGPT) (BEAKER) (test 51 U/L 6-55 dymv=900) EGFR (BEAKER) (test 67 mL/min/1.73 sq m ESTIMATED GFR IS NOT gaqz=9485) ACCURATE CREATININE CLEARANCE IN PREDICTING GLOMERULAR FILTRATION RATE. ESTIMATED GFR IS NOT APPLICABLE FOR DIALYSIS PATIENTS. [id number] 06:14:00 Test Item Value Reference Range Comments PHOSPHORUS (BEAKER) (test sycn=185) 2.1 mg/dL 2.3-4.7 [id number] 06:14:00 Test Item Value Reference Range Comments MAGNESIUM (BEAKER) (test bldz=233) 1.6 mg/dL 1.6-2.6 [id number] 06:05:00 Test Item Value Reference Range Comments PROTIME (BEAKER) (test wtls=734) 18.7 seconds 11.7-14.7 INR (BEAKER) (test mcoy=603) 1.5 <=5.9 PARTIAL THROMBOPLASTIN TIME (BEAKER) (test 76.7 seconds 22.5-36.0 crnv=423) RECOMMENDED COUMADIN/WARFARIN INR THERAPY RANGESSTANDARD DOSE: 2.0 - 3.0 Includes: PROPHYLAXIS forvenous thrombosis, systemic embolization; TREATMENT for venous thrombosis and/or pulmonary embolus.HIGH RISK: Target INR is 2.5-3.5 for patients with mechanical heart valves.CBC W/PLT COUNT & AUTO [id number] 05:47:00 Test Item Value Reference Range Comments WHITE BLOOD CELL COUNT (BEAKER) (test euvz=753) 7.3 K/ L 3.5-10.5 RED BLOOD CELL COUNT (BEAKER) (test pkdf=406) 3.08 M/ L 4.63-6.08 HEMOGLOBIN (BEAKER) (test qfpo=461) 10.5 GM/DL 13.7-17.5 HEMATOCRIT (BEAKER) (test qrnr=324) 31.1 % 40.1-51.0 MEAN CORPUSCULAR VOLUME (BEAKER) (test sncn=887) 101.0 fL 79.0-92.2 MEAN CORPUSCULAR HEMOGLOBIN (BEAKER) (test 34.1 pg 25.7-32.2 onji=780) MEAN CORPUSCULAR HEMOGLOBIN CONC (BEAKER) (test 33.8 GM/DL 32.3-36.5 tada=631) RED CELL DISTRIBUTION WIDTH (BEAKER) (test 20.1 % 11.6-14.4 voiu=767) PLATELET COUNT (BEAKER) (test yfmm=675) 86 K/CU MM 150-450 MEAN PLATELET VOLUME (BEAKER) (test dzrx=464) 11.7 fL 9.4-12.4 NUCLEATED RED BLOOD CELLS (BEAKER) (test 0 /100 WBC 0-0 xzfv=079) NEUTROPHILS RELATIVE PERCENT (BEAKER) (test 56 % gjnl=889) LYMPHOCYTES RELATIVE PERCENT (BEAKER) (test 31 % glga=688) MONOCYTES RELATIVE PERCENT (BEAKER) (test 11 % anie=461) EOSINOPHILS RELATIVE PERCENT (BEAKER) (test 2 % cnxu=021) BASOPHILS RELATIVE PERCENT (BEAKER) (test 0 % fazn=835) NEUTROPHILS ABSOLUTE COUNT (BEAKER) (test 4.06 K/ L 1.78-5.38 nuut=450) LYMPHOCYTES ABSOLUTE COUNT (BEAKER) (test 2.26 K/ L 1.32-3.57 nccs=025) MONOCYTES ABSOLUTE COUNT (BEAKER) (test qsfx=531) 0.77 K/ L 0.30-0.82 EOSINOPHILS ABSOLUTE COUNT (BEAKER) (test 0.17 K/ L 0.04-0.54 vdhw=531) BASOPHILS ABSOLUTE COUNT (BEAKER) (test mvvm=944) 0.03 K/ L 0.01-0.08 IMMATURE GRANULOCYTES-RELATIVE PERCENT (BEAKER) 1 % 0-1 (test ibym=5961) POCT-GLUCOSE [id number] 21:05:00 Test Item Value Reference Range Comments POC-GLUCOSE METER (BEAKER) 206 mg/dL 70-110 TESTED AT [address] (test uyvy=6727) [place] [id number] POCT-GLUCOSE [id number] 18:48:00 Test Item Value Reference Range Comments POC-GLUCOSE METER (BEAKER) 139 mg/dL 70-110 TESTED AT [address] (test wctz=8280) [facility] [address] [id number] 14:28:00 Test Item Value Reference Range Comments RPR SCREEN (BEAKER) (test dfud=175) Nonreactive Nonreactive HEMOGLOBIN [id number] 13:35:00 Test Item Value Reference Range Comments HEMOGLOBIN A1C (BEAKER) (test ncqi=360) 5.1 % 4.3-6.1 POCT-GLUCOSE [id number] 12:15:00 Test Item Value Reference Range Comments POC-GLUCOSE METER (BEAKER) 223 mg/dL 70-110 TESTED AT [address] (test gmtc=8518) [facility] [address] MR, EXTREMITY, UPPER, WITHOUT CONTRAST, [id number] 11:15:00Reason for exam: ->ulceration on 1st MTP [...] osteomyelitis or septic arthritis. Signed: More Hidalgo MDReport Verified Date/Time: 12/12/2018 11:15:34 Reading Location: [address] Ortho Consult Reading Room VANCOMYCIN LEVEL, [id number] 10: 18:00 Test Item Value Reference Range Comments VANCOMYCIN TROUGH (BEAKER) (test zysx=068) 18.1 ug/mL 10.0-20.0 Please draw 30 minutes before 4th doseANTI-NUCLEAR ANTIBODY (KALPANA)2018-12-12 09: 40:00 Test Item Value Reference Range Comments ANTI-NUCLEAR ANTIBODY (KALPANA) (BEAKER) (test Positive Negative uvsv=578) Test performed by IFA method.POCT-GLUCOSE [id number] 08:14:00 Test Item Value Reference Range Comments POC-GLUCOSE METER (BEAKER) 116 mg/dL 70-110 TESTED AT [facility] [address] [facility] (test emsj=0720) [facility] [address] [id number] 07:20:00 Test Item Value Reference Range Comments MAGNESIUM (BEAKER) (test gkmd=160) 2.0 mg/dL 1.6-2.6 CBC W/PLT COUNT & AUTO [id number] 06:37:00 Test Item Value Reference Range Comments WHITE BLOOD CELL COUNT (BEAKER) (test bpal=147) 8.2 K/ L 3.5-10.5 RED BLOOD CELL COUNT (BEAKER) (test mikh=618) 3.04 M/ L 4.63-6.08 HEMOGLOBIN (BEAKER) (test dzrs=590) 10.4 GM/DL 13.7-17.5 HEMATOCRIT (BEAKER) (test whac=105) 30.2 % 40.1-51.0 MEAN CORPUSCULAR VOLUME (BEAKER) (test ipkk=634) 99.3 fL 79.0-92.2 MEAN CORPUSCULAR HEMOGLOBIN (BEAKER) (test 34.2 pg 25.7-32.2 hpvp=259) MEAN CORPUSCULAR HEMOGLOBIN CONC (BEAKER) (test 34.4 GM/DL 32.3-36.5 kkvl=239) RED CELL DISTRIBUTION WIDTH (BEAKER) (test 20.1 % 11.6-14.4 pqff=350) PLATELET COUNT (BEAKER) (test aehy=513) 88 K/CU MM 150-450 MEAN PLATELET VOLUME (BEAKER) (test jerx=902) 11.7 fL 9.4-12.4 NUCLEATED RED BLOOD CELLS (BEAKER) (test 0 /100 WBC 0-0 zmxk=803) NEUTROPHILS RELATIVE PERCENT (BEAKER) (test 64 % pvwd=942) LYMPHOCYTES RELATIVE PERCENT (BEAKER) (test 23 % pong=275) MONOCYTES RELATIVE PERCENT (BEAKER) (test 11 % pyqi=939) EOSINOPHILS RELATIVE PERCENT (BEAKER) (test 1 % zals=546) BASOPHILS RELATIVE PERCENT (BEAKER) (test 0 % vicn=774) NEUTROPHILS ABSOLUTE COUNT (BEAKER) (test 5.26 K/ L 1.78-5.38 whix=460) LYMPHOCYTES ABSOLUTE COUNT (BEAKER) (test 1.86 K/ L 1.32-3.57 cdca=908) MONOCYTES ABSOLUTE COUNT (BEAKER) (test ddvv=979) 0.93 K/ L 0.30-0.82 EOSINOPHILS ABSOLUTE COUNT (BEAKER) (test 0.10 K/ L 0.04-0.54 drda=183) BASOPHILS ABSOLUTE COUNT (BEAKER) (test ylch=962) 0.02 K/ L 0.01-0.08 IMMATURE GRANULOCYTES-RELATIVE PERCENT (BEAKER) 0 % 0-1 (test ejhw=4870) [id number] 06:35:00 Test Item Value Reference Range Comments PHOSPHORUS (BEAKER) (test fayv=265) 1.9 mg/dL 2.3-4.7 HEPATIC FUNCTION [id number] 06:35:00 Test Item Value Reference Range Comments TOTAL PROTEIN (BEAKER) (test iiuq=050) 6.0 gm/dL 6.0-8.3 ALBUMIN (BEAKER) (test bhxq=4125) 2.4 g/dL 3.5-5.0 BILIRUBIN TOTAL (BEAKER) (test wrez=260) 1.4 mg/dL 0.2-1.2 BILIRUBIN DIRECT (BEAKER) (test cwhe=672) 0.8 mg/dL 0.1-0.5 ALKALINE PHOSPHATASE (BEAKER) (test yaov=594) 115 U/L 40-150 AST (SGOT) (BEAKER) (test efog=853) 118 U/L 5-34 ALT (SGPT) (BEAKER) (test ojjn=626) 47 U/L 6-55 COMPREHENSIVE METABOLIC [id number] 06:35:00 Test Item Value Reference Range Comments TOTAL PROTEIN (BEAKER) 6.0 gm/dL 6.0-8.3 (test maks=905) ALBUMIN (BEAKER) (test 2.4 g/dL 3.5-5.0 epzk=4714) ALKALINE PHOSPHATASE 115 U/L 40-150 (BEAKER) (test xrub=594) BILIRUBIN TOTAL (BEAKER) 1.4 mg/dL 0.2-1.2 (test lijd=293) SODIUM (BEAKER) (test 137 meq/L 136-145 osqo=998) POTASSIUM (BEAKER) (test 3.2 meq/L 3.5-5.1 dfwe=884) CHLORIDE (BEAKER) (test 113 meq/L 98-107 qfpx=741) CO2 (BEAKER) (test 21 meq/L 22-29 zuxu=607) BLOOD UREA NITROGEN 19 mg/dL 7-21 (BEAKER) (test lgbc=453) CREATININE (BEAKER) (test 1.00 mg/dL 0.57-1.25 fauz=808) GLUCOSE RANDOM (BEAKER) 117 mg/dL 70-105 (test zifu=028) CALCIUM (BEAKER) (test 8.0 mg/dL 8.4-10.2 watp=545) AST (SGOT) (BEAKER) (test 118 U/L 5-34 bhcy=417) ALT (SGPT) (BEAKER) (test 47 U/L 6-55 lcst=506) EGFR (BEAKER) (test 76 mL/min/1.73 sq m ESTIMATED GFR IS NOT slnj=0755) ACCURATE CREATININE CLEARANCE IN PREDICTING GLOMERULAR FILTRATION RATE. ESTIMATED GFR IS NOT APPLICABLE FOR DIALYSIS PATIENTS. VITAMIN B12 AND [id number] 06:15:00 Test Item Value Reference Range Comments VITAMIN B12 (BEAKER) (test tioa=816) > pg/mL 213-816 FOLATE (BEAKER) (test ygld=723) 13.2 ng/mL >=7.0 ACETAMINOPHEN [id number] 05:54:00 Test Item Value Reference Range Comments ACETAMINOPHEN LEVEL (BEAKER) < ug/mL 10.0-30.0 Specimen moderately hemolyzed (test qxwz=712) Therapeutic Range: 10.0-30.0 g/mLToxic Levels: >200.0 g/mLSALICYLATE [id number] 05:54:00 Test Item Value Reference Range Comments SALICYLATE LEVEL (BEAKER) (test wdxs=415) < mg/dL 15.0-30.0 Therapeutic Range: 15.0-30.0 mg/dLToxic: >30.0 mg/dL Lethal: >70.0 mg/dLPT/[id number] 05:34:00 Test Item Value Reference Range Comments PROTIME (BEAKER) (test vaiq=489) 18.4 seconds 11.7-14.7 INR (BEAKER) (test dtfa=893) 1.5 <=5.9 PARTIAL THROMBOPLASTIN TIME (BEAKER) (test 43.1 seconds 22.5-36.0 pbjp=353) RECOMMENDED COUMADIN/WARFARIN INR THERAPY RANGESSTANDARD DOSE: 2.0 - 3.0 Includes: PROPHYLAXIS forvenous thrombosis, systemic embolization; TREATMENT for venous thrombosis and/or pulmonary embolus.HIGH RISK: Target INR is 2.5-3.5 for patients with mechanical heart valves.U/S, ABDOMINAL, [id number] 04: 29:00Reason for exam:->eval liver for cirrhosis, [...] and possible nonobstructing nephrolithiasis. Signed: Vi Whitman MDReport Verified Date/Time: 12/12/2018 04:29:04 Reading Location: [address] Reading Room POCT-GLUCOSE [id number] 21:05:00 Test Item Value Reference Range Comments POC-GLUCOSE METER (BEAKER) 135 mg/dL 70-110 TESTED AT [facility] [address] [facility] (test ksoy=4239) [facility] [address] POCT-GLUCOSE [id number] 16:47:00 Test Item Value Reference Range Comments POC-GLUCOSE METER (HILARIO) 161 mg/dL 70-110 TESTED AT [facility] [address] [facility] (test pows=1028) [facility] [address] MYOCARD IMAGING, MULTI, PHARM, [id number] 16:37:00FINAL REPORT PROCEDURE: MYOCARDIAL PERFUSION SPECT IMAGING (Rest/Stress)CPT CODE : [id number] INDICATION: Chest pain, suspected acute coronary syndrome [...] no prior study for comparison. Signed: Mariela Arauz MDReport Verified Date/Time: 12/11/2018 16:37:32 Reading Location: [address] Reading Room HIV-1 ANTIGEN WITH HIV-1/2 [id number] 12 :58:00 Test Item Value Reference Range Comments HIV-1 ANTIGEN WITH HIV 1\\T\\2 ANTIBODY (2) Nonreactive Nonreactive (BEAKER) (test wzov=5233) [id number] 12:41:00 Test Item Value Reference Range Comments PROTIME (BEAKER) (test mdld=890) 17.9 seconds 11.7-14.7 INR (BEAKER) (test rhhm=808) 1.4 <=5.9 PARTIAL THROMBOPLASTIN TIME (BEAKER) (test 50.9 seconds 22.5-36.0 jptm=064) RECOMMENDED COUMADIN/WARFARIN INR THERAPY RANGESSTANDARD DOSE: 2.0 - 3.0 Includes: PROPHYLAXIS forvenous thrombosis, systemic embolization; TREATMENT for venous thrombosis and/or pulmonary embolus.HIGH RISK: Target INR is 2.5-3.5 for patients with mechanical heart valves.[id number] 12:37:00 Test Item Value Reference Range Comments ALPHA-1 ANTITRYPSIN (BEAKER) (test vidv=731) 196.00 mg/dL 90.00-200.00 BASIC METABOLIC [id number] 11:40:00 Test Item Value Reference Range Comments SODIUM (BEAKER) (test 141 meq/L 136-145 ejiq=327) POTASSIUM (BEAKER) (test 3.5 meq/L 3.5-5.1 troi=522) CHLORIDE (BEAKER) (test 113 meq/L 98-107 tscl=293) CO2 (BEAKER) (test 19 meq/L 22-29 wxqw=268) BLOOD UREA NITROGEN 11 mg/dL 7-21 (BEAKER) (test vwak=404) CREATININE (BEAKER) (test 1.03 mg/dL 0.57-1.25 jdot=670) GLUCOSE RANDOM (BEAKER) 122 mg/dL 70-105 (test jome=546) CALCIUM (BEAKER) (test 8.1 mg/dL 8.4-10.2 omuv=098) EGFR (BEAKER) (test 73 mL/min/1.73 sq m ESTIMATED GFR IS NOT cwnc=3294) ACCURATE CREATININE CLEARANCE IN PREDICTING GLOMERULAR FILTRATION RATE. ESTIMATED GFR IS NOT APPLICABLE FOR DIALYSIS PATIENTS. Specimen slightly [id number] 09:31:00 Test Item Value Reference Range Comments MAGNESIUM (BEAKER) (test 2.5 mg/dL 1.6-2.6 Specimen markedly hemolyzed cceq=916) BILIRUBIN, [id number] 09:31:00 Test Item Value Reference Range Comments BILIRUBIN DIRECT (BEAKER) (test 0.5 mg/dL 0.1-0.5 Specimen markedly hemolyzed vvhr=614) HEPATITIS A ANTIBODY, [id number] 08:57:00 Test Item Value Reference Range Comments HEPATITIS A IGG ANTIBODY (BEAKER) (test dwft=7124) Reactive Nonreactive POCT-GLUCOSE [id number] 07:33:00 Test Item Value Reference Range Comments POC-GLUCOSE METER (BEAKER) 131 mg/dL 70-110 TESTED AT [facility] [address] [facility] (test flir=4306) [facility] [address] T4, [id number] 06:53:00 Test Item Value Reference Range Comments FREE T4 (BEAKER) (test zzzs=648) 0.98 ng/dL 0.70-1.48 TSH/FREE T4 IF [id number] 05:01:00 Test Item Value Reference Range Comments THYROID STIMULATING HORMONE (BEAKER) (test 0.22 uIU/mL 0.35-4.94 pzoa=567) HEPATITIS B SURFACE [id number] 05:00:00 Test Item Value Reference Range Comments HEPATITIS B SURFACE ANTIBODY (BEAKER) (test < mIU/mL <8.0 tncm=127) HEPATITIS B SURFACE [id number] 04:54:00 Test Item Value Reference Range Comments HEPATITIS B SURFACE ANTIGEN (2) (BEAKER) (test Nonreactive Nonreactive gcnj=3631) HEPATITIS B CORE ANTIBODY, [id number] 04:54:00 Test Item Value Reference Range Comments HEPATITIS B CORE TOTAL ANTIBODY (BEAKER) (test Nonreactive Nonreactive onav=176) [id number] 04:37:00 Test Item Value Reference Range Comments PHOSPHORUS (BEAKER) (test clek=491) 3.3 mg/dL 2.3-4.7 [id number] 04:37:00 Test Item Value Reference Range Comments MAGNESIUM (BEAKER) (test auzp=596) 1.7 mg/dL 1.6-2.6 COMPREHENSIVE METABOLIC [id number] 04:37:00 Test Item Value Reference Range Comments TOTAL PROTEIN (BEAKER) 6.2 gm/dL 6.0-8.3 (test ofgn=549) ALBUMIN (BEAKER) (test 2.5 g/dL 3.5-5.0 vjon=7721) ALKALINE PHOSPHATASE 120 U/L 40-150 (BEAKER) (test eglh=059) BILIRUBIN TOTAL (BEAKER) 2.4 mg/dL 0.2-1.2 (test rdjk=703) SODIUM (BEAKER) (test 141 meq/L 136-145 vmdr=693) POTASSIUM (BEAKER) (test 3.2 meq/L 3.5-5.1 fqbo=668) CHLORIDE (BEAKER) (test 112 meq/L 98-107 szgk=288) CO2 (BEAKER) (test 19 meq/L 22-29 yzob=270) BLOOD UREA NITROGEN 17 mg/dL 7-21 (BEAKER) (test hogd=017) CREATININE (BEAKER) (test 1.10 mg/dL 0.57-1.25 nowm=764) GLUCOSE RANDOM (BEAKER) 122 mg/dL 70-105 (test lhjd=068) CALCIUM (BEAKER) (test 8.4 mg/dL 8.4-10.2 ttsg=098) AST (SGOT) (BEAKER) (test 117 U/L 5-34 nksf=619) ALT (SGPT) (BEAKER) (test 44 U/L 6-55 crgf=243) EGFR (BEAKER) (test 68 mL/min/1.73 sq m ESTIMATED GFR IS NOT fwvn=0703) ACCURATE CREATININE CLEARANCE IN PREDICTING GLOMERULAR FILTRATION RATE. ESTIMATED GFR IS NOT APPLICABLE FOR DIALYSIS PATIENTS. Specimen slightly ictericLIPID [id number] 04:37:00 Test Item Value Reference Range Comments TRIGLYCERIDES (BEAKER) (test wetp=243) 71 mg/dL CHOLESTEROL (BEAKER) (test snwj=004) 105 mg/dL HDL CHOLESTEROL (BEAKER) (test lnxs=942) 27 mg/dL LDL CHOLESTEROL CALCULATED (BEAKER) (test 64 mg/dL xfvh=503) Triglyceride Reference Range: Low Risk <150 Borderline 150- 199 High Risk 200-499 Very High Risk >=500Cholesterol Reference Range: Low Risk <200 Borderline 200-239 High Risk > 240HDL Cholesterol Reference Range: Low Risk >=60 High Risk <40LDL Cholesterol Reference Range: Optimal <100 Near Optimal 100-129 Borderline 130-159 High 160-189 Very High >=190 Specimen slightly ictericCBC W/PLT COUNT & AUTO [id number] 04:17:00 Test Item Value Reference Range Comments WHITE BLOOD CELL COUNT (BEAKER) (test rqwz=234) 5.6 K/ L 3.5-10.5 RED BLOOD CELL COUNT (BEAKER) (test ewsy=630) 2.91 M/ L 4.63-6.08 HEMOGLOBIN (BEAKER) (test bnan=012) 9.8 GM/DL 13.7-17.5 HEMATOCRIT (BEAKER) (test xdld=406) 28.2 % 40.1-51.0 MEAN CORPUSCULAR VOLUME (BEAKER) (test ogfi=703) 96.9 fL 79.0-92.2 MEAN CORPUSCULAR HEMOGLOBIN (BEAKER) (test 33.7 pg 25.7-32.2 lshu=344) MEAN CORPUSCULAR HEMOGLOBIN CONC (BEAKER) (test 34.8 GM/DL 32.3-36.5 nvmf=027) RED CELL DISTRIBUTION WIDTH (BEAKER) (test 19.1 % 11.6-14.4 ihhn=412) PLATELET COUNT (BEAKER) (test sgvv=075) 87 K/CU MM 150-450 MEAN PLATELET VOLUME (BEAKER) (test jkqz=619) 11.5 fL 9.4-12.4 NUCLEATED RED BLOOD CELLS (BEAKER) (test 0 /100 WBC 0-0 kwqs=500) NEUTROPHILS RELATIVE PERCENT (BEAKER) (test 68 % xjva=723) LYMPHOCYTES RELATIVE PERCENT (BEAKER) (test 21 % mdxl=110) MONOCYTES RELATIVE PERCENT (BEAKER) (test 10 % mxam=650) EOSINOPHILS RELATIVE PERCENT (BEAKER) (test 0 % mgfj=440) BASOPHILS RELATIVE PERCENT (BEAKER) (test 0 % slhq=779) NEUTROPHILS ABSOLUTE COUNT (BEAKER) (test 3.81 K/ L 1.78-5.38 mynh=598) LYMPHOCYTES ABSOLUTE COUNT (BEAKER) (test 1.15 K/ L 1.32-3.57 yvao=012) MONOCYTES ABSOLUTE COUNT (BEAKER) (test thvp=772) 0.56 K/ L 0.30-0.82 EOSINOPHILS ABSOLUTE COUNT (BEAKER) (test 0.02 K/ L 0.04-0.54 vjlu=722) BASOPHILS ABSOLUTE COUNT (BEAKER) (test trfm=737) 0.01 K/ L 0.01-0.08 IMMATURE GRANULOCYTES-RELATIVE PERCENT (BEAKER) 1 % 0-1 (test itnk=1759) CT, BRAIN, WITHOUT [id number] 03:32:00FINAL REPORT CLINICAL HISTORY: Stroke COMPARISON: None [...] MDReport Verified Date/Time: 12/11/2018 03:32:31 Reading Location: [address] Reading Room TROPONIN [id number] 02:31:00 Test Item Value Reference Range Comments TROPONIN I (BEAKER) (test gfrs=406) 0.27 ng/mL 0.00-0.03 Troponin I (TnI) levels [...] failure, acidosis, acute neurological disease, and persistent tachyarrhythmia.[id number] 02:19:00 Test Item Value Reference Range Comments PHOSPHORUS (BEAKER) (test wgih=514) 2.2 mg/dL 2.3-4.7 [id number] 02:19:00 Test Item Value Reference Range Comments MAGNESIUM (BEAKER) (test ehhc=829) 1.6 mg/dL 1.6-2.6 BASIC METABOLIC [id number] 02:19:00 Test Item Value Reference Range Comments SODIUM (BEAKER) (test 141 meq/L 136-145 kfwx=587) POTASSIUM (BEAKER) (test 3.3 meq/L 3.5-5.1 ykcc=849) CHLORIDE (BEAKER) (test 112 meq/L 98-107 cstl=796) CO2 (BEAKER) (test 18 meq/L 22-29 gmqk=867) BLOOD UREA NITROGEN 16 mg/dL 7-21 (BEAKER) (test lhju=237) CREATININE (BEAKER) (test 1.10 mg/dL 0.57-1.25 nwqq=430) GLUCOSE RANDOM (BEAKER) 123 mg/dL 70-105 (test vueb=478) CALCIUM (BEAKER) (test 8.3 mg/dL 8.4-10.2 iytj=095) EGFR (BEAKER) (test 68 mL/min/1.73 sq m ESTIMATED GFR IS NOT wubu=2501) ACCURATE CREATININE CLEARANCE IN PREDICTING GLOMERULAR FILTRATION RATE. ESTIMATED GFR IS NOT APPLICABLE FOR DIALYSIS PATIENTS. POCT-GLUCOSE [id number] 22:14:00 Test Item Value Reference Range Comments POC-GLUCOSE METER (BEAKER) 149 mg/dL 70-110 TESTED AT [facility] [address] [facility] (test wcgw=4024) [facility] [address] HEPATITIS C [id number] 21:28:00 Test Item Value Reference Range Comments HEPATITIS C ANTIBODY (BEAKER) (test gwzb=711) Reactive Nonreactive HEPATITIS A ANTIBODY, [id number] 20:42:00 Test Item Value Reference Range Comments HEPATITIS A IGM ANTIBODY (BEAKER) (test Nonreactive Nonreactive ujcp=297) POCT-GLUCOSE [id number] 18:39:00 Test Item Value Reference Range Comments POC-GLUCOSE METER (BEAKER) 130 mg/dL 70-110 TESTED AT [facility] [address] [facility] (test uqsm=4720) [facility] [address] [id number] 17:37:00 Test Item Value Reference Range Comments PHOSPHORUS (BEAKER) (test < mg/dL 2.3-4.7 Specimen moderately hemolyzed gwml=828) [id number] 17:28:00 Test Item Value Reference Range Comments MAGNESIUM (BEAKER) (test 1.5 mg/dL 1.6-2.6 Specimen moderately hemolyzed judq=260) BASIC METABOLIC [id number] 17:28:00 Test Item Value Reference Range Comments SODIUM (BEAKER) (test 139 meq/L 136-145 uvsi=066) POTASSIUM (BEAKER) (test 3.6 meq/L 3.5-5.1 Specimen moderately wiel=452) hemolyzed CHLORIDE (BEAKER) (test 110 meq/L 98-107 fjqh=976) CO2 (BEAKER) (test 21 meq/L 22-29 iuux=345) BLOOD UREA NITROGEN 13 mg/dL 7-21 (BEAKER) (test leay=336) CREATININE (BEAKER) (test 0.99 mg/dL 0.57-1.25 Specimen moderately bqrj=905) hemolyzed GLUCOSE RANDOM (BEAKER) 108 mg/dL 70-105 (test funy=125) CALCIUM (BEAKER) (test 8.6 mg/dL 8.4-10.2 vgjp=595) EGFR (BEAKER) (test 77 mL/min/1.73 sq m ESTIMATED GFR IS NOT avyj=1326) ACCURATE CREATININE CLEARANCE IN PREDICTING GLOMERULAR FILTRATION RATE. ESTIMATED GFR IS NOT APPLICABLE FOR DIALYSIS PATIENTS. [id number] 15:43:00 Test Item Value Reference Range Comments PHOSPHORUS (BEAKER) (test voxc=174) < mg/dL 2.3-4.7 [id number] 15:37:00 Test Item Value Reference Range Comments MAGNESIUM (BEAKER) (test ssax=537) 1.2 mg/dL 1.6-2.6 HEPATOBILIARY [id number] 15:02:00Ordered for surgical team, Dr. Hernandez REPORT PROCEDURE: HEPATOBILIARY SCAN CPT CODE: 07483 INDICATION: Cholelithiasis, acute encephalopathy PROTOCOL: 5.4 mCi [...] findings consistent with hepatocellular disease. Signed: Peggy Weldonort Verified Date/Time: 12/10/2018 15:02:05 Reading Location: [address] Reading Room Electronically signed by: PEGGY WELDON MD on 03:02 PMTROPONIN [id number] 12:57:00 Test Item Value Reference Range Comments TROPONIN I (BEAKER) (test xglx=640) 0.33 ng/mL 0.00-0.03 Troponin I (TnI) levels [...] acute neurological disease, and persistent tachyarrhythmia.BASIC METABOLIC [id number] 12:38:00 Test Item Value Reference Range Comments SODIUM (BEAKER) (test 137 meq/L 136-145 wxxf=585) POTASSIUM (BEAKER) (test 3.3 meq/L 3.5-5.1 zwtd=382) CHLORIDE (BEAKER) (test 108 meq/L 98-107 qfey=684) CO2 (BEAKER) (test 22 meq/L 22-29 olvt=844) BLOOD UREA NITROGEN 13 mg/dL 7-21 (BEAKER) (test ldhd=946) CREATININE (BEAKER) (test 0.94 mg/dL 0.57-1.25 annb=012) GLUCOSE RANDOM (BEAKER) 139 mg/dL 70-105 (test pypg=567) CALCIUM (BEAKER) (test 8.4 mg/dL 8.4-10.2 mcoj=512) EGFR (BEAKER) (test 82 mL/min/1.73 sq m ESTIMATED GFR IS NOT zxry=7781) ACCURATE CREATININE CLEARANCE IN PREDICTING GLOMERULAR FILTRATION RATE. ESTIMATED GFR IS NOT APPLICABLE FOR DIALYSIS PATIENTS. Specimen slightly ictericLACTIC ACID, [id number] 12:34:00 Test Item Value Reference Range Comments LACTATE BLOOD VENOUS (2) (BEAKER) (test 2.3 mmol/L 0.5-2.2 cwak=3972) POCT-GLUCOSE [id number] 12:26:00 Test Item Value Reference Range Comments POC-GLUCOSE METER (BEAKER) 146 mg/dL 70-110 TESTED AT [facility] [address] [facility] (test lsai=2316) [facility] [address] LACTIC ACID, [id number] 08:36:00 Test Item Value Reference Range Comments LACTATE BLOOD VENOUS (2) 1.9 mmol/L 0.5-2.2 Specimen slightly hemolyzed (BEAKER) (test wpxp=0632) URINALYSIS WITH MICROSCOPIC IF [id number] 08:24:00 Test Item Value Reference Range Comments COLOR (BEAKER) (test uram=614) Yellow CLARITY (BEAKER) (test sgdd=237) Clear SPECIFIC GRAVITY UA (BEAKER) (test xsxy=751) 1.008 1.001-1.035 PH UA (BEAKER) (test vwra=571) 8.0 5.0-8.0 PROTEIN UA (BEAKER) (test mkei=244) 100 mg/dL Negative GLUCOSE UA (BEAKER) (test vioj=214) Negative Negative KETONES UA (BEAKER) (test renl=601) Negative Negative BILIRUBIN UA (BEAKER) (test dban=705) Negative Negative BLOOD UA (BEAKER) (test sour=944) Moderate Negative NITRITE UA (BEAKER) (test vsoi=095) Negative Negative LEUKOCYTE ESTERASE UA (BEAKER) (test kmnc=453) Negative Negative UROBILINOGEN UA (BEAKER) (test gkyw=575) 0.2 mg/dL 0.2-1.0 SOURCE(BEAKER) (test ankn=4976) URINALYSIS [id number] 08:24:00 Test Item Value Reference Range Comments RBC UA (BEAKER) (test wras=506) 31 /HPF WBC UA (BEAKER) (test gqqz=835) 2 /HPF BACTERIA (BEAKER) (test pznp=949) Occasional MUCUS (BEAKER) (test qkze=6363) Occasional HYALINE CASTS (BEAKER) (test jcsc=259) 2 /LPF [id number] 06:27:00 Test Item Value Reference Range Comments PROCALCITONIN (BEAKER) (test nvse=8295) 0.11 ng/mL <0.05 SEPSIS RISK (ng/mL)Low: 0.05-0.50Intermediate: 0.51-2.00High: & gt;=2.01TROPONIN [id number] 05:56:00 Test Item Value Reference Range Comments TROPONIN I (BEAKER) (test tkja=359) 0.27 ng/mL 0.00-0.03 Troponin I (TnI) levels [...] acute neurological disease, and persistent tachyarrhythmia.COMPREHENSIVE METABOLIC [id number] 05:50:00 Test Item Value Reference Range Comments TOTAL PROTEIN (BEAKER) 6.4 gm/dL 6.0-8.3 (test acfx=903) ALBUMIN (BEAKER) (test 2.6 g/dL 3.5-5.0 zzfi=5989) ALKALINE PHOSPHATASE 126 U/L 40-150 (BEAKER) (test kfsp=748) BILIRUBIN TOTAL (BEAKER) 2.0 mg/dL 0.2-1.2 (test xbhs=855) SODIUM (BEAKER) (test 139 meq/L 136-145 kaxg=382) POTASSIUM (BEAKER) (test 2.8 meq/L 3.5-5.1 wemu=181) CHLORIDE (BEAKER) (test 108 meq/L 98-107 tppd=880) CO2 (BEAKER) (test 22 meq/L 22-29 hgvj=789) BLOOD UREA NITROGEN 10 mg/dL 7-21 (BEAKER) (test bzwg=196) CREATININE (BEAKER) (test 0.87 mg/dL 0.57-1.25 udie=493) GLUCOSE RANDOM (BEAKER) 109 mg/dL 70-105 (test sglf=687) CALCIUM (BEAKER) (test 8.7 mg/dL 8.4-10.2 gbwj=773) AST (SGOT) (BEAKER) (test 109 U/L 5-34 gqmd=575) ALT (SGPT) (BEAKER) (test 48 U/L 6-55 alba=768) EGFR (BEAKER) (test 89 mL/min/1.73 sq m ESTIMATED GFR IS NOT hxki=5376) ACCURATE CREATININE CLEARANCE IN PREDICTING GLOMERULAR FILTRATION RATE. ESTIMATED GFR IS NOT APPLICABLE FOR DIALYSIS PATIENTS. PROTHROMBIN [id number] 05:43:00 Test Item Value Reference Range Comments PROTIME (BEAKER) (test dgle=329) 18.4 seconds 11.7-14.7 INR (BEAKER) (test qxkz=399) 1.5 <=5.9 RECOMMENDED COUMADIN/WARFARIN INR THERAPY RANGESSTANDARD DOSE: 2.0 - 3.0 Includes: PROPHYLAXIS forvenous thrombosis, systemic embolization; TREATMENT for venous thrombosis and/or pulmonary embolus.HIGH RISK: Target INR is 2.5-3.5 for patients with mechanical heart valves.LACTIC ACID, [id number] 05:38:00 Test Item Value Reference Range Comments LACTATE BLOOD VENOUS (2) (BEAKER) (test 2.5 mmol/L 0.5-2.2 vdxo=7066) CBC W/PLT COUNT & AUTO [id number] 05:34:00 Test Item Value Reference Range Comments WHITE BLOOD CELL COUNT (BEAKER) (test miol=412) 4.3 K/ L 3.5-10.5 RED BLOOD CELL COUNT (BEAKER) (test kcgv=507) 3.01 M/ L 4.63-6.08 HEMOGLOBIN (BEAKER) (test glbw=992) 10.0 GM/DL 13.7-17.5 HEMATOCRIT (BEAKER) (test ysdn=698) 29.1 % 40.1-51.0 MEAN CORPUSCULAR VOLUME (BEAKER) (test ckav=252) 96.7 fL 79.0-92.2 MEAN CORPUSCULAR HEMOGLOBIN (BEAKER) (test 33.2 pg 25.7-32.2 nien=383) MEAN CORPUSCULAR HEMOGLOBIN CONC (BEAKER) (test 34.4 GM/DL 32.3-36.5 mzen=464) RED CELL DISTRIBUTION WIDTH (BEAKER) (test 18.0 % 11.6-14.4 sdft=096) PLATELET COUNT (BEAKER) (test shyy=675) 82 K/CU MM 150-450 MEAN PLATELET VOLUME (BEAKER) (test rwhr=822) 11.3 fL 9.4-12.4 NUCLEATED RED BLOOD CELLS (BEAKER) (test 0 /100 WBC 0-0 pmak=573) NEUTROPHILS RELATIVE PERCENT (BEAKER) (test 58 % wlut=966) LYMPHOCYTES RELATIVE PERCENT (BEAKER) (test 32 % fgwd=079) MONOCYTES RELATIVE PERCENT (BEAKER) (test 8 % tkcu=250) EOSINOPHILS RELATIVE PERCENT (BEAKER) (test 1 % mghq=669) BASOPHILS RELATIVE PERCENT (BEAKER) (test 0 % zhji=184) NEUTROPHILS ABSOLUTE COUNT (BEAKER) (test 2.48 K/ L 1.78-5.38 uycc=990) LYMPHOCYTES ABSOLUTE COUNT (BEAKER) (test 1.38 K/ L 1.32-3.57 zlkj=988) MONOCYTES ABSOLUTE COUNT (BEAKER) (test ojfp=340) 0.34 K/ L 0.30-0.82 EOSINOPHILS ABSOLUTE COUNT (BEAKER) (test 0.03 K/ L 0.04-0.54 upbt=772) BASOPHILS ABSOLUTE COUNT (BEAKER) (test bspg=905) 0.01 K/ L 0.01-0.08 IMMATURE GRANULOCYTES-RELATIVE PERCENT (BEAKER) 1 % 0-1 (test dxso=1526)
== END 2019-08-04 15:22 | disposition home or self-care (01) ==
LOC: ER 12:03
PROC: 0JQ10ZZ Repair Face Subcutaneous Tissue and Fascia, Open Approach (ICD-10-PCS; principal; 2019-08-04)
DX: S01.81XA Laceration without foreign body of other part of head, initial encounter (principal); I10 Essential (primary) hypertension; E11.9 Type 2 diabetes mellitus without complications; K72.90 Hepatic failure, unspecified without coma; W01.198A Fall on same level from slipping, tripping and stumbling with subsequent striking against other object, initial encounter; Y93.89 Activity, other specified; Y92.121 Bathroom in nursing home as the place of occurrence of the external cause; Z23 Encounter for immunization
CPT/HCPCS: 96361; 85025; 80048; 36415; 82140; 86900; 86850; 86901; 70450; 71250; 72125; 73110; 90471; 90714; 96374; 99285; 12013; J7030; J2250